=== PATIENT | male | born 1950 | race Caucasian/White ===

== ENCOUNTER → 2021-03-17 12:55 | Outpatient (CLI) | payer OTHER, SELFPAY ==
--- NOTE | 2021-03-17 13:05 | MRI_ITS ---
STUDY: MRI BRAIN WITH AND WITHOUT CONTRAST REASON FOR EXAM: Male, 71 years old. ASYMMETRIC HEARING LOSS, left TECHNIQUE: Standardized multiplanar fat and water weighted pulse sequences were obtained. IV dotarem 20ml was administered for the contrast portion of the examination. COMPARISON: None. FINDINGS: Normal size of the ventricles and extra-axial spaces for the patient''s age. There are a limited number of small white matter hyperintensities, distributed throughout the deep white matter tracts of the cerebral hemispheres, consistent with mild chronic white matter ischemic changes. Normal bilateral basal ganglia. Normal thalami. There is no extra-axial fluid accumulation. Normal flow voids within the major intracranial circulation suggesting patency by spin echo criteria. Normal venous enhancement. There is no enhancing intra-axial or extra-axial abnormality. Normal sella turcica, pituitary gland, infundibular stalk, optic chiasm and hypothalamus. Normal tectal plate and pineal gland. Normal midbrain, kj and medulla. Normal cerebellum. Normal basal cisterns. Normal bilateral temporal bones. Normal bilateral internal auditory canals. No demonstrated orbital abnormality, within the constraints of a routine brain study. Normal visualized paranasal sinuses. Normal calvarium and skull base. Normal visualized soft tissue structures. Normal visualized upper cervical spine. MRI/Brain W/WO Contrast IMPRESSION: Involutional changes of the brain, as described above. Electronically Signed: Hank Saldana MD at 3:52 EDT Tel , Service support ,
[2021-03-17 13:16] LABS: CREATININE FINGERSTICK 0.6 mg/dL (0.70-1.30); EGFR FINGERSTICK > 60.0000 mL/min (>60)
== END ==
PROVIDERS: PCP Family Medicine; Referring Provider Otolaryngology; Visit Provider Otolaryngology
DX: H90.72 Mixed conductive and sensorineural hearing loss, unilateral, left ear, with unrestricted hearing on the contralateral side (principal)
CPT/HCPCS: 70553; A9575

== ENCOUNTER 2021-07-19 09:01 | Emergency (ER) | payer OTHER, SELFPAY ==
[2021-07-19 09:01] VITALS: BP 177/69; PULSE 71; RESP 18; TEMP 36.6; O2SAT 98; BMI 36.5
--- NOTE | 2021-07-19 09:38 | ED.VIS.GI ---
HPI HPI - GI History of Present Illness Chief Complaint: Nausea/Vomiting Narrative Narrative: 71-year-old male presenting with epigastric pain and nausea and vomiting. This started about 2 or 230 this morning. He vomited several times. He is now having dark vomit. There is no blayne blood in this. Patient states he was otherwise well yesterday and drank 6-7 beers while watching football. He states he ate a hamburger and some sausage and soup yesterday. Nobody else was sick from eating yesterday. He has not had a fever. He denies constipation or diarrhea. [facility] Medical History (Updated 07/19/21 @ 10:10 by Pascale Lim) Hypertension Home Medications Cholecalciferol (Vitamin D3) [Vitamin D3] 4,000 unit PO DAILY 12/10/15 [History Last Taken Unknown] L-Theanine 100 mg PO/SL DAILY 12/10/15 [History Last Taken Unknown] ezetimibe 10 mg PO DAILY 12/10/15 [History Last Taken Unknown] folic acid 1 mg PO DAILY@0800 12/10/15 [History Last Taken Unknown] multivitamin [Daily Multiple] 1 ea PO DAILY 12/10/15 [History Last Taken 12/16/15] atenolol 100 mg PO DAILY 07/19/21 [History Last Taken Unknown] coQ10 (ubiquinol) 200 mg PO DAILY 07/19/21 [History Last Taken Unknown] famotidine [Pepcid] 20 mg PO DAILY PRN #14 tab 07/19/21 [Rx Last Taken Unknown] losartan 100 mg PO DAILY 07/19/21 [History Last Taken Unknown] magnesium 100 mg PO TID 07/19/21 [History Last Taken Unknown] ondansetron HCl [Zofran] 4 mg PO Q8H PRN #14 tab 07/19/21 [Rx Last Taken Unknown] sertraline 50 mg PO DAILY 07/19/21 [History Last Taken Unknown] spironolactone 50 mg PO DAILY 07/19/21 [History Last Taken Unknown] tadalafil 10 mg PO DAILY 07/19/21 [History Last Taken Unknown] Allergy/AdvReac Type Severity Reaction Status Date / Time atorvastatin calcium Allergy Other Verified 07/19/21 09:03 [From Lipitor] fenofibrate nanocrystallized Allergy Other Verified 07/19/21 09:03 [From Tricor] fenofibrate,micronized Allergy Other Verified 07/19/21 09:03 [From Tricor] hydrochlorothiazide Allergy Other Verified 07/19/21 09:03 latex Allergy Hives Verified 07/19/21 09:03 Surgical History (Updated 07/19/21 @ 10:10 by Pascale Lim) History of cholecystectomy History of parathyroidectomy History of prostatectomy History of tonsillectomy Social History Smoking Status: Former smoker ROS ROS ED Review of Systems ROS Unobtainable: Denies due to encephalopathy Constitutional Constitutional ED: Denies chills or fever(s) ENT ENT ED: Denies rhinorrhea or sore throat Cardiovascular Cardiovascular: Denies chest pain or palpitations Respiratory/Chest Respiratory/Chest: Denies cough or dyspnea Gastrointestinal Gastrointestinal: Reports abdominal pain, nausea and vomiting; Denies constipation or diarrhea Genitourinary Genitourinary ED: Denies dysuria or hematuria Musculoskeletal Musculoskeletal: Denies arthralgias, back pain or myalgias Integumentary Denies rash Neurologic Neurologic: Denies headache(s) or paresthesias EXAM Physical Exam Const Vital Signs: 07/19/21 09:01 07/19/21 10:08 Temperature 98 F 98.0 F Temperature Source Temporal Temporal Pulse Rate 71 77 Respiratory Rate 18 18 Blood Pressure 177/69 H 177/61 H Blood Pressure Mean 105 99 Pulse Ox 98 98 Oxygen Delivery Method Room Air Room Air Positive well nourished General Appearance ED: NAD; Negative for pallor HEENT Reports moist mucous membranes normocephalic and atraumatic Eyes PERRL and EOMs intact bilaterally General Eye ED: Negative for scleral icterus Resp normal respiratory effort and clear to auscultation bilaterally Cardio regular rate and regular rhythm GI non-distended Palpation: soft and tender epigastric Neuro Sensorium / Orientation: alert, oriented to person, oriented to place and oriented to time Psych mental status grossly normal and thought process normal Skin General Skin Exam: Negative for jaundice or pallor MDM MDM MDM Narrative Medical decision making narrative: Patient presenting with nausea, vomiting, epigastric pain. He admits to drinking several beers yesterday and did eat sausage and hamburger. In the ED he was given Zofran for nausea and morphine for pain. He was also given IV fluids. On reevaluation he is feeling much better. His CBC does show a leukocytosis of 14.8 however this is likely due to his episodes of vomiting. He is slightly dehydrated but again he was given IV fluids. His LFTs and lipase are normal. EtOH is negative. Patient will be provided a prescription for Pepcid and Zofran for home. He is counseled on foods to avoid and to hydrate slowly throughout the day. Patient's blood sugar slightly elevated at 215 and he tells me that he was just diagnosed as prediabetic and was supposed to be doing a diabetic diet. There is no anion gap and I do not believe this will change his disposition but he will need to follow-up with his primary care doctor for this. Impression: 1. Nausea/vomiting 2. Epigastric pain 3. Hyperglycemia 4. Dehydration Lab Data Labs: Laboratory Results - last 24 hr 07/19/21 07/19/21 07/19/21 09:55 09:55 09:55 WBC 14.8 H RBC 5.18 Hgb 14.3 Hct 42.7 MCV 82.4 MCH 27.6 MCHC 33.5 RDW Std Deviation 40.7 RDW Coeff of Mike 13.6 Plt Count 222 MPV 10.2 Immature Gran % (Auto) 0.400 Neut % (Auto) 89.7 H Lymph % (Auto) 5.0 L Garza % (Auto) 4.7 Eos % (Auto) 0.1 Baso % (Auto) 0.1 Absolute Neuts (auto) 13.3 H Absolute Lymphs (auto) 0.74 L Nucleated RBC % 0 Sodium 136 Potassium 3.9 Chloride 97 L Carbon Dioxide 33.0 H Anion Gap 6 BUN 29 H Creatinine 1.35 H Estim Creat Clear Calc 49.26 Est GFR (MDRD) Af Amer 67 Est GFR (MDRD) Non-Af 56 L BUN/Creatinine Ratio 21.5 H Glucose 215 H Calcium 9.6 Total Bilirubin 0.90 AST 24 ALT 36 Alkaline Phosphatase 80 Total Protein 7.6 Albumin 4.0 Globulin 3.6 Albumin/Globulin Ratio 1.1 Lipase 121 Ethyl Alcohol < 3.0 Discharge Plan Triage Chief Complaint: Nausea/Vomiting ED Provider: Chinmay Del Cid Dx/Rx/DC Orders Instructions: ED Vomiting (Adult) Prescriptions: New famotidine [Pepcid] 20 mg tablet 20 mg PO DAILY PRN (Reason: acid reflux) Qty: 14 RF: 0 ondansetron HCl [Zofran] 4 mg tablet 4 mg PO Q8H PRN (Reason: nausea and vomiting) Qty: 14 RF: 0 No Action multivitamin [Daily Multiple] 1 EACH tablet 1 ea PO DAILY RF: 0 folic acid 1 MG tablet 1 mg PO DAILY@0800 RF: 0 ezetimibe 10 MG tablet 10 mg PO DAILY RF: 0 Cholecalciferol (Vitamin D3) [Vitamin D3] 5,000 UNIT capsule 4,000 unit PO DAILY RF: 0 L-Theanine 100 mg PO/SL DAILY RF: 0 atenolol 100 mg tablet 100 mg PO DAILY RF: 0 magnesium 100 mg Tablet 100 mg PO TID RF: 0 losartan 100 mg tablet 100 mg PO DAILY RF: 0 sertraline 50 mg tablet 50 mg PO DAILY RF: 0 spironolactone 50 mg tablet 50 mg PO DAILY RF: 0 tadalafil 10 mg tablet 10 mg PO DAILY RF: 0 coQ10 (ubiquinol) 200 mg Capsule 200 mg PO DAILY RF: 0 Primary Care Provider: Justin Ybarra Referrals: Justin Ybarra MD [Primary Care Provider] - Disposition Disposition: Home, Self Care
[2021-07-19] MEDS: 0.9% Normal Saline 1,000 ML 1000 ML IV (09:55)
[2021-07-19] MEDS: Ondansetron 4 MG/2 ML Vial IV (09:55)
[2021-07-19] MEDS: Morphine 4 MG/ML Syringe IV (09:55)
[2021-07-19 10:05] LABS: Absolute Lymphocyte Count 0.74 X10^3/uL (0.83-4.51); Absolute Neutrophil Count 13.3 X10^3/uL (2.0-7.7); Basophil# 0.02 X10^3/uL; Basophil% 0.1 % (0-1); Eosinophil# 0.01 X10^3/uL; Eosinophils% 0.1 % (0-5); Hematocrit 42.7 % (40-54); Hemoglobin 14.3 g/dL (13.0-16.5); Lymphocyte # 0.74 X10^3/ul (0.83-4.51); Mean Corp Hgb Conc 33.5 g/dL (32-36); Mean Corpuscular Hgb 27.6 pg (27.0-32.0); Mean Corpuscular Volume 82.4 fL (80-94); Mean Platelet Vol. 10.2 fl (6.2-12.0); Monocyte% 4.7 % (0-10); NRBC Flagged by Analyzer 0 % (0-5); Neutrophil # 13.26 X10^3/uL (2.7-7.7); Neutrophil % 89.7 % (47-70); Platelet Count 222 K/mm3 (150-450); RBC Distribution Width CV 13.6 % (11.6-14.6); RBC Distribution Width SD 40.7 fl (35.1-43.9); Red Blood Count 5.18 M/mm3 (4.6-6.2); White Blood Count 14.8 K/mm3 (4.4-11.0)
[2021-07-19 10:08] VITALS: BP 177/61; PULSE 77; RESP 18; TEMP 36.7; O2SAT 98
[2021-07-19 10:19] LABS: Alcohol, Blood (Medical)-Serum < 3.0 mg/dL
[2021-07-19 10:22] LABS: ALB/GLOB Ratio 1.1 RATIO (0.9-2.4); AST(SGOT) 24 U/L (15-37); Alanine Aminotransfer ALT/SGPT 36 U/L (16-61); Alkaline Phosphatase 80 U/L (45-117); Anion Gap 6 (5-15); BUN 29 mg/dL (7-18); BUN/Creat Ratio 21.5 RATIO (10-20); Calcium,Total 9.6 mg/dL (8.5-10.1); Chloride 97 mmol/L (98-107); Creatinine, Serum 1.35 mg/dL (0.70-1.30); EST Glomerular Filtration Rate 56 mL/min (>60); Est Glom Filt Rate - Afr Amer 67 mL/min (>60); Estimated Creatinine Clearance 49.26 ml/min; Globulin 3.6 g/dL (2.2-4.2); Glucose 215 mg/dL (74-106); Lipase 121 U/L (73-393); Potassium 3.9 mmol/L (3.5-5.1); Protein, Total 7.6 g/dL (6.4-8.2); Sodium Level 136 mmol/L (136-145)
[2021-07-19 11:14] VITALS: PULSE 64; RESP 17; O2SAT 97
== END 2021-07-19 11:14 | disposition home or self-care (01) ==
PROVIDERS: Emergency Provider Student in an Organized Health Care Education/Training Program; PCP Family Medicine
DX: R11.2 Nausea with vomiting, unspecified (principal); R10.13 Epigastric pain; R73.9 Hyperglycemia, unspecified; E86.0 Dehydration; I10 Essential (primary) hypertension; Z87.891 Personal history of nicotine dependence
CPT/HCPCS: 80053; 82077; 83690; 85025; 96361; 96374; 96375; 99283; J7030; A4216; J2405

== ENCOUNTER 2021-07-20 04:46 | Inpatient (IN) | payer BC, MEDICARE, OTHER, SELFPAY ==
[2021-07-20] VITALS (47 sets, daily range): BP systolic 91–187; BP diastolic 48–88; PULSE 91–142; RESP 14–41; TEMP 36.5–39.3; O2SAT 85–99; BMI 36.1; BMI 37.0; BMI 36.6
--- NOTE | 2021-07-20 04:49 | EKG12_ITS ---
Test Reason : VOMITING Blood Pressure : / mmHG Vent. Rate : 109 BPM Atrial Rate : 109 BPM P-R Int : 196 ms QRS Dur : 094 ms QT Int : 290 ms P-R-T Axes : 072 021 -31 degrees QTc Int : 390 ms Sinus tachycardia Nonspecific ST and T wave abnormality Abnormal ECG Confirmed by YESSY WEBER, LYNN ([id number]), editor at large YARIEL HARDEN ([id number]) on 07/21/2021 9:24:46 AM Referred By: DEVANTE Confirmed By:LYNN KRISHNAMURTHY MD
--- NOTE | 2021-07-20 04:50 | CT_ITS ---
We are attempting to reach an attending provider to discuss findings. An addendum with communication details will be sent when the communication is complete. HISTORY: Abdominal pain, bloating, nausea and vomiting. EXAMINATION: CT Abdomen And Pelvis W/O Contrast Injection TECHNIQUE: Helically acquired images were obtained of the abdomen and pelvis without oral or IV contrast. A radiation dose optimization technique was used for this scan. IV Contrast dosage and agent: None. Oral contrast: None. COMPARISON: None FINDINGS: LOWER CHEST: Dilated fluid-filled esophagus. Multiple bilateral patchy groundglass alveolar opacities. Superimposed bibasilar linear scarring versus atelectasis. Normal size heart with coronary arterial calcifications and/or stents. LIVER: Homogeneous. No concerning lesion. GALLBLADDER AND BILIARY TREE: Status post cholecystectomy. No significant biliary ductal dilation. KIDNEYS AND URETERS: Kidneys are symmetric size with no discrete mass, stones or hydronephrosis. ADRENAL GLANDS: Non-enlarged. SPLEEN: Spleen normal size with small granulomatous calcification. PANCREAS: No discrete mass or peripancreatic inflammation. BOWEL: Markedly distended gastric lumen. Dilated and duodenal and proximal jejunum with air-fluid levels, measuring up to 4 cm diameter. There is jejunal pneumatosis involving dilated segment within mid abdomen, just proximal to narrowing and tapering transition point (axial images 90-105). Remainder of small bowel is decompressed. Large bowel partially decompressed. Normal appendix within right lower quadrant. Noninflamed sigmoid diverticula. LYMPH NODES: No enlarged mesenteric or retroperitoneal lymph nodes. PERITONEUM: There is mesenteric edema adjacent to dilated loops of small bowel within mid abdomen. No mesenteric venous gas or free peritoneal air demonstrated. No abscess or significant free fluid. VESSELS: Scattered atherosclerotic calcifications with no abdominal aortic aneurysm. URINARY BLADDER: Empty urinary bladder. REPRODUCTIVE ORGANS: Previous prostatectomy. ABDOMINAL WALL: Bilateral inguinal hernia repair. BONES: Chronic pubic fracture. Skeletal degenerative changes. CT/Abdomen/Pelvis without Cont IMPRESSION: 1. Mid abdominal high-grade small bowel obstruction with pneumatosis involving jejunum proximal to the transition, concerning for bowel infarction. No mesenteric or portal venous gas demonstrated at this time. No evidence of bowel obstruction. Recommend surgical consultation. 2. Bilateral groundglass pulmonary infiltrate suggesting atypical or viral pneumonia. 3. Dilated and fluid-filled stomach and esophagus secondary to bowel obstruction. 4. Other nonurgent findings within body of report. Individualized dose optimization techniques were used for this CT. at 0554 Reported and signed by: Panchito Cason MD Electronically Signed: Panchito Cason MD at 5:52 EST Tel , Service support ,
[2021-07-20] MEDS: Ondansetron 4 MG/2 ML Vial IV (05:00)
[2021-07-20] MEDS: 0.9% Normal Saline 1,000 ML 1000 ML IV (05:00)
[2021-07-20 05:09] LABS: Absolute Lymphocyte Count 0.99 X10^3/uL (0.83-4.51); Absolute Neutrophil Count 20.3 X10^3/uL (2.0-7.7); Basophil# 0.03 X10^3/uL; Basophil% 0.1 % (0-1); Hematocrit 42.4 % (40-54); Hemoglobin 13.6 g/dL (13.0-16.5); Lymphocyte # 0.99 X10^3/ul (0.83-4.51); Lymphocyte % 4.3 % (19-41); Mean Corp Hgb Conc 32.1 g/dL (32-36); Mean Corpuscular Hgb 27.3 pg (27.0-32.0); Mean Corpuscular Volume 85.1 fL (80-94); Mean Platelet Vol. 10.5 fl (6.2-12.0); Monocyte# 1.72 X10^3/uL; Monocyte% 7.4 % (0-10); NRBC Flagged by Analyzer 0 % (0-5); Neutrophil # 20.29 X10^3/uL (2.7-7.7); Neutrophil % 87.1 % (47-70); POSITIVE DIFFERENTIAL YES; Platelet Count 303 K/mm3 (150-450); RBC Distribution Width CV 14.1 % (11.6-14.6); RBC Distribution Width SD 43.7 fl (35.1-43.9); Red Blood Count 4.98 M/mm3 (4.6-6.2); White Blood Count 23.3 K/mm3 (4.4-11.0)
[2021-07-20] MEDS: Famotidine 200 MG/20 ML MDV 20 MG in 0.9% Normal Saline (Pres. free 8 ML 300 MG IV (05:09)
[2021-07-20] MEDS: morphine 8 MG/ML Syringe 6 MG IV (05:12)
[2021-07-20 05:13] LABS: Differential Indicated SCAN CRITERIA MET
--- NOTE | 2021-07-20 05:29 | RAD_ITS ---
HISTORY: NG TUBE PLACEMENT EXAMINATION/TECHNIQUE: XR Abdomen 1 View: Upright view upright abdomen COMPARISON: CT abdomen and pelvis from one hour prior FINDINGS: Enteric tube tip within right upper quadrant at level of distal distended gastric lumen. Adjacent cholecystectomy clips. Partially imaged mildly dilated loops of small bowel within mid abdomen. Mild bibasilar opacities. Mild skeletal degenerative changes. RAD/Abdomen Single View (Portable) IMPRESSION: Distended gastric lumen with enteric tube projecting into the distal stomach. Dilated loops of small bowel. Bowel obstruction demonstrated on recent CT. Bibasilar atelectasis versus infiltrate. at 0719 Reported and signed by: Panchito Cason MD Electronically Signed: Panchito Cason MD at 7:17 EST Tel , Service support ,
--- NOTE | 2021-07-20 05:30 | EDS_ITS ---
HPI HPI - GI History of Present Illness Chief Complaint: Abd Pain Informant: patient Narrative Narrative: Patient is a 71-year-old male presenting with worsening abdominal distention, pain and vomiting. Patient was seen in the ER yesterday morning. He had similar symptoms but not as severe. He was treated with IV fluids and Zofran. He states he is continued to vomit since going home. He is now vomiting up black/dark brown material. His abdomen is more distended. He is not had any bowel movements. He denies any chest pain or difficulty breathing. Denies a history of small bowel obstruction or similar episode. Has had a chol ecystectomy in the past. No other complaints at this time. [facility] Medical History Hypertension Home Medications Cholecalciferol (Vitamin D3) [Vitamin D3] 4,000 unit PO DAILY 12/10/15 [History Last Taken Unknown] L-Theanine 100 mg PO/SL DAILY 12/10/15 [History Last Taken Unknown] ezetimibe 10 mg PO DAILY 12/10/15 [History Last Taken Unknown] folic acid 1 mg PO DAILY@0800 12/10/15 [History Last Taken Unknown] multivitamin [Daily Multiple] 1 ea PO DAILY 12/10/15 [History Last Taken 12/16/15] atenolol 100 mg PO DAILY 07/19/21 [History Last Taken Unknown] coQ10 (ubiquinol) 200 mg PO DAILY 07/19/21 [History Last Taken Unknown] famotidine [Pepcid] 20 mg PO DAILY PRN #14 tab 07/19/21 [Rx Last Taken Unknown] losartan 100 mg PO DAILY 07/19/21 [History Last Taken Unknown] magnesium 100 mg PO TID 07/19/21 [History Last Taken Unknown] ondansetron HCl [Zofran] 4 mg PO Q8H PRN #14 tab 07/19/21 [Rx Last Taken Unknown] sertraline 50 mg PO DAILY 07/19/21 [History Last Taken Unknown] spironolactone 50 mg PO DAILY 07/19/21 [History Last Taken Unknown] tadalafil 10 mg PO DAILY 07/19/21 [History Last Taken Unknown] Allergy/AdvReac Type Severity Reaction Status Date / Time atorvastatin calcium Allergy Other Verified 07/19/21 09:03 [From Lipitor] fenofibrate nanocrystallized Allergy Other Verified 07/19/21 09:03 [From Tricor] fenofibrate,micronized Allergy Other Verified 07/19/21 09:03 [From Tricor] hydrochlorothiazide Allergy Other Verified 07/19/21 09:03 latex Allergy Hives Verified 07/19/21 09:03 Surgical History History of cholecystectomy History of parathyroidectomy History of prostatectomy History of tonsillectomy Social History Smoking Status: Former smoker ROS ROS ED Constitutional Constitutional ED: Denies chills or fever(s) ENT ENT ED: Denies sore throat Cardiovascular Cardiovascular: Denies chest pain Respiratory/Chest Respiratory/Chest: Denies dyspnea Gastrointestinal Gastrointestinal: Reports abdominal pain, nausea and vomiting Genitourinary Genitourinary ED: Denies dysuria or hematuria Musculoskeletal Musculoskeletal: Denies myalgias Integumentary Denies rash Neurologic Neurologic: Reports weakness; Denies headache(s) Psychiatric Psychiatric: Denies depression EXAM Physical Exam Const Vital Signs: 07/20/21 04:49 07/20/21 06:28 07/20/21 06:36 Temperature 97.7 F L Temperature Source Temporal Pulse Rate 108 H 125 H Respiratory Rate 16 Blood Pressure 181/86 H 136/62 H 133/63 H Blood Pressure Mean 117 86 86 Blood Pressure Source Blood Pressure Position Blood Pressure Location Pulse Ox 98 Oxygen Delivery Method Room Air Nasal Cannula Oxygen Flow Rate (L/min) 3 07/20/21 06:51 07/20/21 06:53 07/20/21 06:55 Temperature 99.0 F 99.0 F 99.0 F Temperature Source Temporal Temporal Temporal Pulse Rate 116 H 117 H 117 H Respiratory Rate 41 H 40 H 38 H Blood Pressure 140/80 H 140/80 H 140/80 H Blood Pressure Mean 100 100 100 Blood Pressure Source Monitor Blood Pressure Position Supine Blood Pressure Location Right Arm Pulse Ox 86 85 85 Oxygen Delivery Method Non-Rebreather Non-Rebreather Non-Rebreather Oxygen Flow Rate (L/min) 15 15 15 07/20/21 07:03 Temperature Temperature Source Pulse Rate 108 H Respiratory Rate 37 H Blood Pressure 161/88 H Blood Pressure Mean 112 Blood Pressure Source Blood Pressure Position Blood Pressure Location Pulse Ox 87 Oxygen Delivery Method Non-Rebreather Oxygen Flow Rate (L/min) 15 Positive well nourished and well developed General Appearance ED: well developed HEENT Reports moist mucous membranes HEENT Narrative: Coffee ground appearing emesis stained around his mouth normocephalic Eyes PERRL and EOMs intact bilaterally Neck supple and no JVD Resp normal respiratory effort and clear to auscultation bilaterally Cardio regular rhythm and no murmurs GI Inspection: abdominal distention Auscultation: hypoactive bowel sounds Palpation: rigid; Negative for guarding Extremity full ROM Extremity Narrative: 2+ bilateral DP pulses General Extremety ED: Negative for edema or tenderness General Extremity: Negative for edema Neuro moves all extremities Sensorium / Orientation: alert Motor Exam: strength 5/5 throughout; Negative for general weakness Psych mental status grossly normal Skin Lesions: no lesions Rashes: no rashes MDM MDM Lab Data Lab results narrative: Patient evaluated for worsening abdominal pain, distention nausea and vomiting. Vomit is consistent with coffee-ground emesis. CT obtained which is concerning for small bowel obstruction. NG tube will be placed. Patient is worsening leukocytosis now 23.3. EKG shows strain pattern with sinus tachycardia. He has a significant lactic acidosis and findings consistent with acute ischemia with pneumatosis of the bowels. NG tube is placed and patient has over a liter immediately out of black fluid. After the NG tube is placed he does start to become hypoxic and was placed on a nonrebreather. I suspect he aspirated at some time. Patient is evaluated by surgery and will be taken emergently to the OR. Clinically he does feel much better after NG tube was placed. Labs: Laboratory Results - last 24 hr 07/20/21 07/20/21 07/20/21 04:59 04:59 04:59 WBC 23.3 H RBC 4.98 Hgb 13.6 Hct 42.4 MCV 85.1 MCH 27.3 MCHC 32.1 RDW Std Deviation 43.7 RDW Coeff of Mike 14.1 Plt Count 303 MPV 10.5 Immature Gran % (Auto) 1.100 H Neut % (Auto) 87.1 H Lymph % (Auto) 4.3 L [place] % (Auto) 7.4 Eos % (Auto) 0.0 Baso % (Auto) 0.1 Absolute Neuts (auto) 20.3 H Absolute Lymphs (auto) 0.99 Nucleated RBC % 0 Differential Comment SCANNED Diff Path Review May foll PT INR APTT Sodium 137 Potassium 2.9 L Chloride 92 L Carbon Dioxide 22.0 Anion Gap 23 H BUN 57 H Creatinine 2.81 H Estim Creat Clear Calc 23.67 Est GFR (MDRD) Af Amer 29 L Est GFR (MDRD) Non-Af 24 L BUN/Creatinine Ratio 20.3 H Glucose 299 H Lactic Acid 13.7 H* Calcium 8.9 Magnesium Total Bilirubin 0.60 AST 30 ALT 35 Alkaline Phosphatase 72 Total Creatine Kinase Troponin I High Sens 278 H* Total Protein 7.6 Albumin 3.7 Globulin 3.9 Albumin/Globulin Ratio 0.9 Lipase 59235 H Urine Color Urine Clarity Urine pH Ur Specific [place] Urine Protein Urine Glucose (UA) Urine Ketones Urine Occult Blood Urine Nitrite Urine Bilirubin Urine Urobilinogen Ur Leukocyte Esterase Urine RBC Urine WBC Ur Squamous Epith Cells Urine Bacteria Urine Mucus Blood Type Antibody Screen Crossmatch 07/20/21 07/20/21 07/20/21 04:59 04:59 06:05 WBC RBC Hgb Hct MCV MCH MCHC RDW Std Deviation RDW Coeff of Mike Plt Count MPV Immature Gran % (Auto) Neut % (Auto) Lymph % (Auto) [place] % (Auto) Eos % (Auto) Baso % (Auto) Absolute Neuts (auto) Absolute Lymphs (auto) Nucleated RBC % Differential Comment Diff Path Review PT 16.1 H INR 1.4 APTT 26.3 Sodium Potassium Chloride Carbon Dioxide Anion Gap BUN Creatinine Estim Creat Clear Calc Est GFR (MDRD) Af Amer Est GFR (MDRD) Non-Af BUN/Creatinine Ratio Glucose Lactic Acid Calcium Magnesium 2.4 Total Bilirubin AST ALT Alkaline Phosphatase Total Creatine Kinase 315 H Troponin I High Sens Total Protein Albumin Globulin Albumin/Globulin Ratio Lipase Urine Color Urine Clarity Urine pH Ur Specific [place] Urine Protein Urine Glucose (UA) Urine Ketones Urine Occult Blood Urine Nitrite Urine Bilirubin Urine Urobilinogen Ur Leukocyte Esterase Urine RBC Urine WBC Ur Squamous Epith Cells Urine Bacteria Urine Mucus Blood Type Antibody Screen Crossmatch 07/20/21 07/20/21 07/20/21 06:07 06:07 07:35 WBC RBC Hgb Hct MCV MCH MCHC RDW Std Deviation RDW Coeff of Mike Plt Count MPV Immature Gran % (Auto) Neut % (Auto) Lymph % (Auto) [place] % (Auto) Eos % (Auto) Baso % (Auto) Absolute Neuts (auto) Absolute Lymphs (auto) Nucleated RBC % Differential Comment Diff Path Review PT INR APTT Sodium Potassium Chloride Carbon Dioxide Anion Gap BUN Creatinine Estim Creat Clear Calc Est GFR (MDRD) Af Amer Est GFR (MDRD) Non-Af BUN/Creatinine Ratio Glucose Lactic Acid Calcium Magnesium Total Bilirubin AST ALT Alkaline Phosphatase Total Creatine Kinase Troponin I High Sens Total Protein Albumin Globulin Albumin/Globulin Ratio Lipase Urine Color Yellow Urine Clarity Clear Urine pH 5.0 Ur Specific [place] 1.020 Urine Protein 30 H Urine Glucose (UA) Normal Urine Ketones Negative Urine Occult Blood 150 H Urine Nitrite Negative Urine Bilirubin Negative Urine Urobilinogen Normal Ur Leukocyte Esterase Negative Urine RBC 0 SEEN Urine WBC 0 SEEN Ur Squamous Epith Cells 0-5 SEEN Urine Bacteria 0 SEEN Urine Mucus 0 SEEN Blood Type B POSITIVE Antibody Screen NEGATIVE Crossmatch See Detail Radiography Diagnostic Testing: Clinical Impression(s) from Imaging Studies Abdomen/Pelvis CT 07/20/21 04:50 IMPRESSION: 1. Mid abdominal high-grade small bowel obstruction with pneumatosis involving jejunum proximal to the transition, concerning for bowel infarction. No mesenteric or portal venous gas demonstrated at this time. No evidence of bowel obstruction. Recommend surgical consultation. 2. Bilateral groundglass pulmonary infiltrate suggesting atypical or viral pneumonia. 3. Dilated and fluid-filled stomach and esophagus secondary to bowel obstruction. 4. Other nonurgent findings within body of report. Individualized dose optimization techniques were used for this CT. at 0554 Reported and signed by: Panchito Cason MD Electronically Signed: Panchito Cason MD at 5:52 EST Tel , Service support , ADDENDUM: 07/20/21 0606 IMPRESSION: 1. Mid abdominal high-grade small bowel obstruction with pneumatosis involving jejunum proximal to the transition, concerning for bowel infarction. No mesenteric or portal venous gas demonstrated at this time. No evidence of bowel obstruction. Recommend surgical consultation. 2. Bilateral groundglass pulmonary infiltrate suggesting atypical or viral pneumonia. 3. Dilated and fluid-filled stomach and esophagus secondary to bowel obstruction. 4. Other nonurgent findings within body of report. Individualized dose optimization techniques were used for this CT. at 0554 Reported and signed by: Panchito Cason MD N.B. : The above Results were Read Back by Panchito Cason MD to Dr. Cecilio MD, and understanding confirmed on 07/20/2021 05:59:09 (ET). Electronically Signed: Panchito Cason MD at 5:52 EST Tel , Service support , Chest X-Ray 07/20/21 07:58 IMPRESSION: 1. Nasogastric tube with the tip below the diaphragm. 2. Right internal jugular deep venous line with tip of the catheter overlying the superior vena cava no pneumothorax. 3. Poor inspiration with bibasilar atelectasis. Electronically Signed: Brandyn Lou MD at 8:28 EST Tel , Service support , Rhythm Strip Rhythm Strip: Sinus Tach Rate: 109 Ectopy: None EKG Initial EKG: Attestation: I personally reviewed and interpreted this EKG as follows: Interpretation: Sinus Tachycardia Comments: Sinus tachycardia at a rate of 109 Normal axis Normal intervals ST depressions in the inferior leads No signs consistent with ACS Critical Care Time Critical Care Time: Yes Critical care time (excluding procedures): 30-74 minutes (50), Discussing w/Patient &/or Family/High School Tutor, Discussing w/Consultants, Arranging Admission or Transfer and Performing Direct Patient Care at Bedside Discharge Plan Dx/Rx/DC Orders Clinical Impression: SBO (small bowel obstruction), Pneumatosis of intestines, Acidosis, lactic Disposition Disposition: Acute Care Hospital [facility] Discharge Date/Time: 07/20/21 07:25
[2021-07-20 05:39] LABS: Differential Comment SCANNED
[2021-07-20 05:43] LABS: ALB/GLOB Ratio 0.9 RATIO (0.9-2.4); AST(SGOT) 30 U/L (15-37); Alanine Aminotransfer ALT/SGPT 35 U/L (16-61); Albumin, Serum 3.7 g/dL (3.2-5.0); Alkaline Phosphatase 72 U/L (45-117); Anion Gap 23 (5-15); BUN 57 mg/dL (7-18); BUN/Creat Ratio 20.3 RATIO (10-20); Calcium,Total 8.9 mg/dL (8.5-10.1); Chloride 92 mmol/L (98-107); Creatinine, Serum 2.81 mg/dL (0.70-1.30); EST Glomerular Filtration Rate 24 mL/min (>60); Est Glom Filt Rate - Afr Amer 29 mL/min (>60); Estimated Creatinine Clearance 23.67 ml/min; Globulin 3.9 g/dL (2.2-4.2); Glucose 299 mg/dL (74-106); Lactic Acid 13.7 mmol/L (0.4-1.9); Lipase 11944 U/L (73-393); Potassium 2.9 mmol/L (3.5-5.1); Protein, Total 7.6 g/dL (6.4-8.2); Sodium Level 137 mmol/L (136-145); Troponin-I HS 278 pg/mL (3.0-78.0)
[2021-07-20] MEDS: Oxymetazoline 0.05% 1 SPRAY SPRAY.BTL 2 SPRAY NASAL (05:52)
[2021-07-20] MEDS: Lidocaine 4% 5 ML Ampul 2 ML INHALATION (05:53)
[2021-07-20 06:23] LABS: CPK Total, Creatine Kinase 315 U/L (39-308)
[2021-07-20] MEDS: Potassium Chloride 10mEq/100mL 10 MEQ/100 ML IV.SOLN. 100 MEQ IV BOLUS ×2 (06:38→07:38)
[2021-07-20] MEDS: 0.9% Normal Saline 1,000 ML 999 ML IV ×2 (06:38→07:01)
[2021-07-20 06:40] LABS: International Normalized Ratio 1.4; Prothrombin Time (Protime)PT. 16.1 SECONDS (11.7-14.9)
[2021-07-20 06:41] LABS: Partial Thromboplast Time 26.3 Seconds (24.1-36.2)
--- NOTE | 2021-07-20 06:56 | PCM.HP.STD ---
HPI - General HPI Narrative BARRERA HENDRICKS, is a 71 M who presents to the ER due to abdominal pain and nausea and vomiting. Patient states this all started about midday on Monday. Patient has been vomiting ever since has not really eaten since Monday. Patient did go to the ER yesterday and got some pain meds and reflux medication which he thought it helped a little bit however once he laid down it continued. Patient presented to the ER this morning the white blood count 23, will lactic of 13, CT abdomen pelvis shows dilated fluid-filled stomach, small bowel likely high-grade obstruction, questionable pneumatosis of the small bowel. Patient is currently satting 85% on nonrebreather - since NG was placed?and NG has put out about 2 L [facility] Medical History Hypertension Home Medications Cholecalciferol (Vitamin D3) [Vitamin D3] 4,000 unit PO DAILY 12/10/15 [History Last Taken Unknown] L-Theanine 100 mg PO/SL DAILY 12/10/15 [History Last Taken Unknown] ezetimibe 10 mg PO DAILY 12/10/15 [History Last Taken Unknown] folic acid 1 mg PO DAILY@0800 12/10/15 [History Last Taken Unknown] multivitamin [Daily Multiple] 1 ea PO DAILY 12/10/15 [History Last Taken 12/16/15] atenolol 100 mg PO DAILY 07/19/21 [History Last Taken Unknown] coQ10 (ubiquinol) 200 mg PO DAILY 07/19/21 [History Last Taken Unknown] famotidine [Pepcid] 20 mg PO DAILY PRN #14 tab 07/19/21 [Rx Last Taken Unknown] losartan 100 mg PO DAILY 07/19/21 [History Last Taken Unknown] magnesium 100 mg PO TID 07/19/21 [History Last Taken Unknown] ondansetron HCl [Zofran] 4 mg PO Q8H PRN #14 tab 07/19/21 [Rx Last Taken Unknown] sertraline 50 mg PO DAILY 07/19/21 [History Last Taken Unknown] spironolactone 50 mg PO DAILY 07/19/21 [History Last Taken Unknown] tadalafil 10 mg PO DAILY 07/19/21 [History Last Taken Unknown] Allergy/AdvReac Type Severity Reaction Status Date / Time atorvastatin calcium Allergy Other Verified 07/19/21 09:03 [From Lipitor] fenofibrate nanocrystallized Allergy Other Verified 07/19/21 09:03 [From Tricor] fenofibrate,micronized Allergy Other Verified 07/19/21 09:03 [From Tricor] hydrochlorothiazide Allergy Other Verified 07/19/21 09:03 latex Allergy Hives Verified 07/19/21 09:03 Surgical History History of cholecystectomy History of parathyroidectomy History of prostatectomy History of tonsillectomy Social History Smoking Status: Former smoker Vital Signs Vital Signs Vital Signs: 07/20/21 04:49 07/20/21 06:28 07/20/21 06:36 Temperature 97.7 F L Temperature Source Temporal Pulse Rate 108 H 125 H Respiratory Rate 16 Blood Pressure 181/86 H 136/62 H 133/63 H Blood Pressure Mean 117 86 86 Pulse Ox 98 Oxygen Delivery Method Room Air Nasal Cannula Oxygen Flow Rate (L/min) 3 07/20/21 06:51 07/20/21 06:53 Temperature 99.0 F 99.0 F Temperature Source Temporal Temporal Pulse Rate 116 H 117 H Respiratory Rate 41 H 40 H Blood Pressure 140/80 H 140/80 H Blood Pressure Mean 100 100 Pulse Ox 86 85 Oxygen Delivery Method Non-Rebreather Non-Rebreather Oxygen Flow Rate (L/min) 15 15 Weight Weight: 243 lb 13.3 oz Body Mass Index (BMI) 37.0 Physical Exam Const alert, oriented x3 and no apparent distress HEENT normocephalic and head/scalp atraumatic Resp normal respiratory effort Cardio regular rate GI soft to palpation Inspection: abdominal distention Palpation: tender other (Minimal only with deep palpation); Negative for guarding Extremity no clubbing, cyanosis or edema Neuro CN's II-XII intact bilaterally Psych mental status grossly normal Results Lab / Micro Data Result Diagrams: 07/20/21 04:59 07/20/21 04:59 Labs: Laboratory Results - last 24 hr 07/20/21 04:59: WBC 23.3 H, RBC 4.98, Hgb 13.6, Hct 42.4, MCV 85.1, MCH 27.3, MCHC 32.1, RDW Std Deviation 43.7, RDW Coeff of Mike 14.1, Plt Count 303, MPV 10.5, Immature Gran % (Auto) 1.100 H, Neut % (Auto) 87.1 H, Lymph % (Auto) 4.3 L, [place] % (Auto) 7.4, Eos % (Auto) 0.0, Baso % (Auto) 0.1, Absolute Neuts (auto) 20.3 H, Absolute Lymphs (auto) 0.99, Nucleated RBC % 0, Differential Comment SCANNED, Diff Path Review January foll 07/20/21 04:59: Sodium 137, Potassium 2.9 L, Chloride 92 L, Carbon Dioxide 22.0, Anion Gap 23 H, BUN 57 H, Creatinine 2.81 H, Estim Creat Clear Calc 23.67, Est GFR (MDRD) Af Amer 29 L, Est GFR (MDRD) Non-Af 24 L, BUN/Creatinine Ratio 20.3 H, Glucose 299 H, Calcium 8.9, Total Bilirubin 0.60, AST 30, ALT 35, Alkaline Phosphatase 72, Troponin I High Sens 278 H*, Total Protein 7.6, Albumin 3.7, Globulin 3.9, Albumin/Globulin Ratio 0.9, Lipase 12893 H 07/20/21 04:59: Lactic Acid 13.7 H* 07/20/21 04:59: Total Creatine Kinase 315 H 07/20/21 06:05: PT 16.1 H, INR 1.4, APTT 26.3 Micro: Microbiology 07/20/21 06:09 Interface Orders SARS-CoV-2 Antigen (Rapid) - Final 07/20/21 05:21 Stool Stool Occult Blood (PEDRO) - Final Occult Blood Positive Rhythm Strip Rhythm Strip: Sinus Tach Rate: 109 Ectopy: None Radiology Impression Abdomen/Pelvis CT 07/20/21 04:50 IMPRESSION: 1. Mid abdominal high-grade small bowel obstruction with pneumatosis involving jejunum proximal to the transition, concerning for bowel infarction. No mesenteric or portal venous gas demonstrated at this time. No evidence of bowel obstruction. Recommend surgical consultation. 2. Bilateral groundglass pulmonary infiltrate suggesting atypical or viral pneumonia. 3. Dilated and fluid-filled stomach and esophagus secondary to bowel obstruction. 4. Other nonurgent findings within body of report. Individualized dose optimization techniques were used for this CT. at 0554 Reported and signed by: Panchito Cason MD Electronically Signed: Panchito Cason MD at 5:52 EST Tel , Service support , ADDENDUM: 07/20/21 0606 IMPRESSION: 1. Mid abdominal high-grade small bowel obstruction with pneumatosis involving jejunum proximal to the transition, concerning for bowel infarction. No mesenteric or portal venous gas demonstrated at this time. No evidence of bowel obstruction. Recommend surgical consultation. 2. Bilateral groundglass pulmonary infiltrate suggesting atypical or viral pneumonia. 3. Dilated and fluid-filled stomach and esophagus secondary to bowel obstruction. 4. Other nonurgent findings within body of report. Individualized dose optimization techniques were used for this CT. at 0554 Reported and signed by: Panchito Cason MD N.B. : The above Results were Read Back by Panchito Cason MD to Dr. Cecilio MD, and understanding confirmed on 07/20/2021 05:59:09 (ET). Electronically Signed: Panchito Cason MD at 5:52 EST Tel , Service support , Assessment & Plan Assessment/Plan (1) SBO (small bowel obstruction): (2) Pneumatosis of intestines: PLAN: Patient is getting IV Zosyn in the ER as well as potassium. Discussed with the patient and his would plan on exploratory laparoscopic, possible laparotomy, possible bowel resection. Including risks not limited to bleeding, infection, injury to another organ, and anesthesia. Also discussed with patient and his since he is currently satting 85% on a nonrebreather there could be a chance of him still being intubated in the ICU after surgery. Nancy Hall M.D. Pager: [phone] [facility] [address] [place] [address], [facility], [address] [place] [address] Office: [phone] Procedure Criteria Type of Procedure Procedure Type: Elective Elective Risks - COVID COVID Risk Discussion: The surgeon/proceduralist and patient have discussed in detail the risk of exposure to and/or potential harm posed by the COVID-19 virus with having a surgery/procedure at this time versus the risk of delaying the surgery/procedure. It is not possible to know either the risk of delaying the surgery or procedure or chance of getting an infection with perfect accuracy, but a joint decision was made between the patient and the surgeon/proceduralist to proceed at this time with the scheduled surgery/procedure as indicated on the consent form.
--- NOTE | 2021-07-20 06:58 | NURSING ---
SURGEON IN ROOM
--- NOTE | 2021-07-20 07:30 | COL_PTH ---
PATIENT: BARRERA HENDRICKS LOC: [facility] U#:[id number] AGE/SX: 71/M ROOM: [facility] RE07/20/[address]: Dr. Nancy Hall MD : 1950 BED: 1 DIS: 07/26/2021 SPEC #: [id number] RECD: 07/20/21 12:09 STATUS: TRELL YARIEL #: [id number] MARGE: 07/20/21 07:[address]: Nancy Hall DEPT: SURGICAL PATHOLOGY RECD BY: Heike Petersen ENTERED: 07/20/21 13:30 SP TYPE: COLON OTHR DR: MD Dr. Drew Mathews, DO Tana Anthony, STRAW BALER-C Dr. Justin Ybarra MD Tissues: Small intestine mucous membrane Procedures: Surgery Specimen Level III Surgery Specimen Level V HEADER OPERATION: Exploratory laparotomy, bowel resection PRE-OP DIAGNOSIS: Small bowel obstruction, pneumatosis of intestine TISSUE SUBMITTED: Proximal mid jejunum, suture distal MICROSCOPIC DIAGNOSIS Proximal mid jejunum, segmental resection: Segment of small bowel with focal mild submucosal and serosal congestion, clinically small bowel obstruction. Fragments of food material in the container. Small bowel donut, no pathologic diagnosis. See comment. SJ:rg 07/21/2021 COMMENT Clinical correlation and appropriate follow up are necessary. MICROSCOPIC DESCRIPTION Slides are reviewed. GROSS DESCRIPTION Received in fixative is one container labeled with the patient's name and designated proximal mid jejunum, suture distal. The specimen consists of a previously opened small segment of small intestine measuring 5 cm in length. Both resection margins are stapled. The distal margin is oriented by a suture. No mucosal lesion is identified. A small amount of food particle is noted in the lumen. Sections reveal unremarkable cut surfaces. Attached mesenteric tissue measures up to 1 cm in width. No obviously enlarged lymph node is identified. Also present in the container is a donut-shaped piece of small bowel measuring 4 x 4 x 1 cm. Multiple dang are noted in this piece. Also present in the container are multiple pieces of food particles. Childcare Provider sections are submitted in six cassettes as follows: 1??distal resection margin, 2 - proximal resection margin, 3 & 4 - bowel wall, 5 - mesenteric tissue, 6??joseph. / KATHARINA:sundar 07/20/21 TC:5 CPT: 84154, 509241
[2021-07-20 07:43] LABS: Bacteria 0 SEEN /hpf (None Seen); Mucous, Urine 0 SEEN /hpf (<or=2+); Red Blood Cells-Urine 0 SEEN /hpf (0-5); White Blood Cells 0 SEEN /hpf (0-5)
[2021-07-20 07:46] LABS: Color, Urine Yellow (Yellow); Glucose, Dipstick Normal (Normal); Ketone-Dipstick Negative (Negative); Leukocyte Esterase-Dipstick Negative /ul (Negative); Nitrite-Dipstick Negative (Negative); Occult Blood-Urine 150 /ul (Negative); Protein-Dipstick 30 mg/dl (Negative); Urine Bilirubin Dipstick Negative (Negative); Urine Clarity Clear (Clear); Urine Urobilinogen Normal (Normal)
[2021-07-20 07:52] LABS: Magnesium 2.4 mg/dL (1.6-2.6)
[2021-07-20 07:55] LABS: Squamous Epithelial Cells - UA 0-5 SEEN /hpf (0-5)
--- NOTE | 2021-07-20 07:58 | RAD_ITS ---
STUDY: X-RAY CHEST REASON FOR EXAM: Male, 71 years old. line placement TECHNIQUE: Single AP portable view of the chest. COMPARISON: None. FINDINGS: Nasogastric tube with tip below the diaphragm. Right internal jugular deep venous alignment of the catheter overlying the superior vena cava. Poor inspiration with some bibasilar atelectasis. There is no demonstrated pleural abnormality. There is moderate cardiac enlargement. Normal mediastinum and philip. Normal visualized pulmonary arteries. Normal visualized aortic arch and descending thoracic aorta. Normal visualized thoracic spine. Normal visualized ribs, clavicles, and shoulders. There is no demonstrated abnormality of the visualized soft tissue structures of the upper abdomen. RAD/CXR for Line Placement IMPRESSION: 1. Nasogastric tube with the tip below the diaphragm. 2. Right internal jugular deep venous line with tip of the catheter overlying the superior vena cava no pneumothorax. 3. Poor inspiration with bibasilar atelectasis. Electronically Signed: Brandyn Lou MD at 8:28 EST Tel , Service support ,
--- NOTE | 2021-07-20 07:59 | SUR.PREOP ---
0745Pt in PACU on monitor, VS stable at this time. Dr. Hall at bedside preparing for central line insertion. Time out performed with this RN and Kalie Cummings RN. 0800 Central line placement complete per Dr. Hall, Xray bedside.
--- NOTE | 2021-07-20 08:04 | SUR.PREOP ---
Domenic to use Central line per Dr. Hall
[2021-07-20] MEDS: Potassium Chloride 20mEq/100mL 20 MEQ/100 ML IV.SOLN. 100 MEQ IV BOLUS (08:08)
[2021-07-20 09:06] LABS: Reflex Lactate? Y
--- NOTE | 2021-07-20 09:18 | PCM.OPRPT ---
Report of Operation Date of Procedure: 07/20/21 Pre-Operative Diagnosis: Need for IV access, sepsis Post-Operative Diagnosis: Same Surgery/Procedure Performed:: Insertion right IJ triple-lumen Surgeon: Nancy Hall Type of Anesthesia: Local Description of Procedure: Procedure: A time-out was completed to verify correct patient, indication, medication allergies, procedure, coagulation studies, informed consent signed, and equipment needed. The patient was placed in the supine position for a central line placement to the right IJ vein. The patients right neck was prepped using chlorhexidine and a full body sterile drape was applied. 1% lidocaine was used to anesthetize the surrounding skin. A triple-lumen central line catheter introduced into the internal jugular vein using the modified Seldinger technique with the assistance of ultrasound. Guidewire was placed in the internal jugular vein and threaded easily. The site was dilated then catheter was placed. The catheter was threaded smoothly over the guidewire, the guidewire was removed easily, nonpulsatile blood returned. All ports were aspirated of air and flushed with sterile saline. The catheter was sutured in place and covered with an occlusive dressing . X-ray was verified the end of the procedure showing catheter in place and no pneumothorax. Grafts/Implants Used: Triple-lumen catheter Complications none
--- NOTE | 2021-07-20 09:19 | OP.PCM_ITS ---
Report of Operation Date of Procedure: 07/20/21 Pre-Operative Diagnosis: Small bowel obstruction, pneumatosis, elevated lactic acid, leukocytosis, acute hypoxia Post-Operative Diagnosis: Small bowel bezoar causing obstruction Description of Surgical Findings:: Small bowel was ran and was all viable. There was an area of bezoar that was unable to be passed this area was resected Surgeon: Nancy Hall Type of Anesthesia: General/Supplemental Anesthesiologist: Xavier Guerrier Special Medications: Zosyn IV from the ER Specimen's removed: Proximal/mid jejunum with bezoar Estimated Blood Loss (mL): < 20 cc Description of Procedure: Indications: 71-year-old male presented ER due to nausea and vomiting since Monday. Patient was noted to have a white blood count of 23/lactic acid of 13. CT abdomen pelvis was consistent with high-grade small bowel obstruction with pneumatosis the jejunum prior to transition. Patient also had acute hypoxia as he was on a nonrebreather only satting 85%. Patient did get an NG placed in the ER had 2 L out initially. Patient agreed to exploratory laparoscopic, possible laparotomy, possible bowel resection Description of procedure: Patient was brought operating placed plan operating ta ble. A timeout was completed verifying correct patient, seizure, site, positioning, special equipment prior beginning procedure. Abdomen is prepped draped in usual sterile fashion. Patient did have issues with setting and was only in the 80s on the ventilator thus went straight to a laparotomy. A midline incision was made with a 10 blade scalpel was deepened to the fascia with electrocautery. The fascia was elevated and incised under direct visualization no injury upon entry into the abdomen. The small bowel was ran from distal to proximal. Small bowel was noted to be very decompressed with only in some dilated small bowel proximally. There is noted to be an obvious transition point and there felt to be some firm material in the proximal mid jejunum that was not able to be milked distally. The small bowel did appear viable. This area of bowel was resected using MIGUEL staplers 75 cm. The antimesenteric borders were brought together and enterotomies were made for the MIGUEL stapler which was fired then TL 60 was used to close the enterotomy. There is noted to be a good patent anastomosis. 3-0 silk suture was used as a crotch stitch. Abdomen was irrigated with saline and suction. The midline incision was closed with 1 PDS running suture. Skin was closed with dang. Telfa and ABDs were placed over the top. Due to patient's acute respiratory status he was kept intubated and taken to the ICU in critical condition. Complications none
[2021-07-20 09:31] LABS: Base Excess -4 mmol/L (-2 to +2); Bicarbonate 21.4 mmol/L (22-26); Blood Gas Specimen Type ART; FI02 100; Mode AC/PC; O2 Delivery Device Adult Vent; PO2 47 mmHG (75-100); PS 25; RR 14; SITE Art Line; SO2 82 % (95-99); Total Carbon Dioxide 23 mmol/L; pCO2 35.4 mmHg (35-45); pH 7.39 (7.35-7.45)
[2021-07-20 09:50] LABS: Base Excess -3 mmol/L (-2 to +2); Blood Gas Specimen Type ART; FI02 100; Mode AC/PC; PEEP 15; PO2 233 mmHG (75-100); PS 25; RR 14; SITE Art Line; SO2 100 % (95-99); Total Carbon Dioxide 23 mmol/L; pCO2 38.3 mmHg (35-45); pH 7.37 (7.35-7.45)
--- NOTE | 2021-07-20 10:00 | RAD_ITS ---
STUDY: X-RAY CHEST REASON FOR EXAM: Male, 71 years old. et tube placement TECHNIQUE: Single AP portable view of the chest. COMPARISON: 07/20/2021 at 07 56 FINDINGS: Interval placement of endotracheal tube with the tip approximately 4 cm above the cameron. Nasogastric tube and right internal jugular deep Both which are unchanged. Increase in the alveolar opacities in both lungs consistent with worsening bilateral pneumonia, pulmonary edema, or air DS. There is no demonstrated pleural abnormality. Normal size heart. Normal mediastinum and philip. Normal visualized pulmonary arteries. Normal visualized aortic arch and descending thoracic aorta. Normal visualized thoracic spine. Normal visualized ribs, clavicles, and shoulders. There is no demonstrated abnormality of the visualized soft tissue structures of the upper abdomen. RAD/Chest 1 View (Portable) IMPRESSION: 1. Interval placement of endotracheal tube with the tip above the cameron. 2. Nasogastric tube and right internal jugular deep venous line which are unchanged. 3. Worsening bibasilar atelectasis, pneumonia, pulmonary edema, or ARDS. Electronically Signed: Brandyn Lou MD at 10:28 EST Tel , Service support ,
[2021-07-20] MEDS: Propofol 10MG/Ml 1,000 MG/100 ML Bottle 6.6 MG CONT INF (10:10)
[2021-07-20 10:24] LABS: PEEP 15
--- NOTE | 2021-07-20 10:28 | EX.PCM.CONCC ---
Assessment & Plan Assessment/Plan (1) SBO (small bowel obstruction): (2) Pneumatosis of intestines: (3) Aspiration pneumonia due to gastric secretions: (4) Acute respiratory failure with hypoxia: PLAN: RECOMMENDATIONS: 1. Continue current vent settings. Wean FiO2 as tolerated 2. Discontinue pressors and IV fluids if possible 3. Hold baseline antihypertensives 4. Initiate propofol and fentanyl. Discontinue paralytics. 5. Empiric antibiotics per surgery, would recommend at least Unasyn for aspiration 6. Tylenol as needed for pain/fever 7. Recheck electrolytes with supplementation as necessary IMPRESSIONS: 1. Acute hypoxic respiratory failure secondary to aspiration pneumonia Chest x-ray shows endotracheal tube in appropriate position. Patient does have worsening infiltrates bilaterally. Patient has received significant volume resuscitation in the setting of pancreatitis. We will continue to monitor blood pressures. If improved, will discontinue IV fluids. If patient continues to be stable from a hemodynamic standpoint, could consider diuretics. Previous ABG shows adequate oxygenation and ventilation. Will wait for paralytics to wear off and then will repeat ABG. Patient should be covered with antibiotics, at least Unasyn for aspiration, but may be Zosyn for bowel perforation. Defer to surgery. 2. Acute kidney injury Patient with significant elevation in creatinine with decreased urine output. Patient did have hypoxia with hypotension for quite some time. Patient also presented with a lactate about 10. Repeat electrolytes with repletion if necessary. No indication for renal replacement therapy previously on laboratory data. 3. Distributive shock secondary to acute pancreatitis secondary to perforated bowel Patient with elevated lactate, lipase, white blood cell count and glucose. Given age, this gives a [place] criteria of 3 on admission. We will send an LDH as this could potentially add another points. Currently, this would account for his 15% predicted mortality. Continue to follow blood sugars closely. These could be highly labile 4. Septic shock secondary to perforated bowel Patient was on pressors for a short period of time. Patient does have pneumatosis indicating probable perforation. Patient did not have a lot of blood loss during the surgery. We will continue pressors if necessary. If not necessary, we will hold on IV fluids given patient's respiratory failure. 5. Use of tadalafil/GERD/obesity/poor history/hyperlipidemia/hypertension Complicates care, management, recovery and prognosis. Avoid nitrates. Hold statins for now given high risk for hepatitis. Hold hypertensive medications given problems 3 and 4. TIME: 60 minutes of critical care time spent addressing patient's acute hypoxic respiratory failure, acute kidney injury, distributive shock, review of all data and collaboration with care team (9 AM to 10:45 AM) HPI Consult Data Date of Consult: 07/20/21 HPI Narrative HPI Narrative: BARRERA HENDRICKS is a 71 M, with a reported past medical history of hypertension and GERD, who presents to [facility] 07/20/2021 secondary to worsening abdominal distention, pain and vomiting. Patient had reportedly been seen in the ER on the day previous with similar type of symptoms, but these became more severe throughout the day so he presented this morning. Patient had been given IV fluids and Zofran at that time. Patient has continued to vomit since going home and did progressed to coughing up black/coffee-ground material. Patient had not had any bowel movements and denied any difficulty breathing in the ER. Patient did have a history of cholecystectomy in the past. In the ER, patient was tachycardic at 125 bpm, tachypneic at 41 breaths/min but normotensive. Patient was requiring a nonrebreather to maintain saturations. Laboratory work-up showed a white blood cell count of 23.3, hemoglobin of 13.6 and platelets of 303. Potassium was low at 2.9, BUN of 57 and creatinine of 2.8. Lactate was elevated at 13.7 with a high-sensitivity troponin of 278. Lipase was elevated at almost 12,000. INR was within normal limits and magnesium was 2.4. UA was unremarkable. A CT of the abdomen and pelvis showed a mid abdominal high-grade small bowel obstruction with pneumatosis and bilateral groundglass opacities in the lungs. Patient did have a dilated stomach. A chest x-ray had shown the NG below the diaphragm and a right IJ. EKG showed sinus tachycardia. Given pneumatosis, the patient was taken to the OR immediately. I was called at approximately 9 AM from the OR that they were having difficulty with oxygenation. During intubation, patient reportedly had secretions in his airway. Patient had much of his procedure with marginal saturations. Patient was brought to the intensive care unit on pressors with bag mask ventilation. See OR documentation for previous vent settings. The patient was placed on a PEEP of 8 with 100% FiO2. Arterial line showed significant hypertension. Patient reportedly had been given 30 of rocuronium prior to transport. Unable to obtain a review of systems secondary to paralytic and intubation. [facility] Medical History Hypertension Home Medications Cholecalciferol (Vitamin D3) [Vitamin D3] 4,000 unit PO DAILY 12/10/15 [History Last Taken Unknown] L-Theanine 100 mg PO/SL DAILY 12/10/15 [History Last Taken Unknown] ezetimibe 10 mg PO DAILY 12/10/15 [History Last Taken Unknown] folic acid 1 mg PO DAILY@0800 12/10/15 [History Last Taken Unknown] multivitamin [Daily Multiple] 1 ea PO DAILY 12/10/15 [History Last Taken 12/16/15] atenolol 100 mg PO DAILY 07/19/21 [History Last Taken Unknown] coQ10 (ubiquinol) 200 mg PO DAILY 07/19/21 [History Last Taken Unknown] famotidine [Pepcid] 20 mg PO DAILY PRN #14 tab 07/19/21 [Rx Last Taken Unknown] losartan 100 mg PO DAILY 07/19/21 [History Last Taken Unknown] magnesium 100 mg PO TID 07/19/21 [History Last Taken Unknown] ondansetron HCl [Zofran] 4 mg PO Q8H PRN #14 tab 07/19/21 [Rx Last Taken Unknown] sertraline 50 mg PO DAILY 07/19/21 [History Last Taken Unknown] spironolactone 50 mg PO DAILY 07/19/21 [History Last Taken Unknown] tadalafil 10 mg PO DAILY 07/19/21 [History Last Taken Unknown] Allergy/AdvReac Type Severity Reaction Status Date / Time atorvastatin calcium Allergy Other Verified 07/19/21 09:03 [From Lipitor] fenofibrate nanocrystallized Allergy Other Verified 07/19/21 09:03 [From Tricor] fenofibrate,micronized Allergy Other Verified 07/19/21 09:03 [From Tricor] hydrochlorothiazide Allergy Other Verified 07/19/21 09:03 latex Allergy Hives Verified 07/19/21 09:03 Surgical History History of cholecystectomy History of parathyroidectomy History of prostatectomy History of tonsillectomy Social History Smoking Status: Former smoker ROS ROS Narrative See HPI Physical Exam Const no apparent distress Constitutional Narrative: Paralyzed General Appearance: intubated and patient mechanically ventilated Nutritional Appearance: obese HEENT normocephalic and head/scalp atraumatic Eyes conjunctivae normal and no scleral icterus Chest inspection of chest normal Chest: symmetrical chest wall rise; Negative for crepitus Resp Resp Narrative: Good vent synchrony. Effort and Inspection: mechanically ventilated; Negative for prolonged expiratory phase Auscultation: rales bilateral and diminished lung sounds; Negative for rhonchi or wheezes Cardio regular rhythm, S1 normal heart sound, S2 normal heart sound, no murmurs, no rub and no gallops Rate: tachycardic GI GI Narrative: Exam limited secondary to paralysis. Surgical sites are clean, dry and intact Inspection: abdominal distention Palpation: Negative for tender or guarding Extremity no clubbing, cyanosis or edema Skin Skin Narrative: Surgical sites are clean, dry and intact Neuro Neuro Narrative: Currently paralyzed Psych Psych Narrative: Currently paralyzed Lab / Micro Data Result Diagrams: 07/20/21 04:59 07/20/21 04:59 Labs: Laboratory Results - last 24 hr 07/20/21 04:59: WBC 23.3 H, RBC 4.98, Hgb 13.6, Hct 42.4, MCV 85.1, MCH 27.3, MCHC 32.1, RDW Std Deviation 43.7, RDW Coeff of Mike 14.1, Plt Count 303, MPV 10.5, Immature Gran % (Auto) 1.100 H, Neut % (Auto) 87.1 H, Lymph % (Auto) 4.3 L, Ector % (Auto) 7.4, Eos % (Auto) 0.0, Baso % (Auto) 0.1, Absolute Neuts (auto) 20.3 H, Absolute Lymphs (auto) 0.99, Nucleated RBC % 0, Differential Comment SCANNED, Diff Path Review January07/20/21 04:59: Sodium 137, Potassium 2.9 L, Chloride 92 L, Carbon Dioxide 22.0, Anion Gap 23 H, BUN 57 H, Creatinine 2.81 H, Estim Creat Clear Calc 23.67, Est GFR (MDRD) Af Amer 29 L, Est GFR (MDRD) Non-Af 24 L, BUN/Creatinine Ratio 20.3 H, Glucose 299 H, Calcium 8.9, Total Bilirubin 0.60, AST 30, ALT 35, Alkaline Phosphatase 72, Troponin I High Sens 278 H*, Total Protein 7.6, Albumin 3.7, Globulin 3.9, Albumin/Globulin Ratio 0.9, Lipase 52824 H 07/20/21 04:59: Lactic Acid 13.7 H* 07/20/21 04:59: Total Creatine Kinase 315 H 07/20/21 04:59: Magnesium 2.4 07/20/21 06:05: PT 16.1 H, INR 1.4, APTT 26.3 07/20/21 06:07: Blood Type B POSITIVE, Antibody Screen NEGATIVE 07/20/21 06:07: Crossmatch See Detail 07/20/21 07:35: Urine Color Yellow, Urine Clarity Clear, Urine pH 5.0, Ur Specific [place] 1.020, Urine Protein 30 H, Urine Glucose (UA) Normal, Urine Ketones Negative, Urine Occult Blood 150 H, Urine Nitrite Negative, Urine Bilirubin Negative, Urine Urobilinogen Normal, Ur Leukocyte Esterase Negative, Urine RBC 0 SEEN, Urine WBC 0 SEEN, Ur Squamous Epith Cells 0-5 SEEN, Urine Bacteria 0 SEEN, Urine Mucus 0 SEEN Micro: Microbiology 07/20/21 06:09 Interface Orders SARS-CoV-2 Antigen (Rapid) - Final 07/20/21 05:21 Stool Stool Occult Blood (PEDRO) - Final Occult Blood Positive ABG Data ABG results: ABG 07/20/21 07/20/21 09:20 09:43 Specimen Type ART ART Sample Site Art Line Art Line pH 7.39 7.37 Bicarbonate Actual 21.4 L 22.0 Total CO2 23 23 Base Excess -4 L -3 L O2 Saturation 82 L 100 H O2 % 100 100 ABG pCO2 35.4 38.3 ABG pO2 47 L 233 H Respiration Rate 14 14 O2 Delivery Device Adult Vent Vent Mode AC/PC AC/PC POC PEEP 15 15 POC Pressure Suppt 25 25 Rhythm Strip Rhythm Strip: Sinus Tach Rate: 109 Ectopy: None Radiology Impression Abdomen/Pelvis CT 07/20/21 04:50 IMPRESSION: 1. Mid abdominal high-grade small bowel obstruction with pneumatosis involving jejunum proximal to the transition, concerning for bowel infarction. No mesenteric or portal venous gas demonstrated at this time. No evidence of bowel obstruction. Recommend surgical consultation. 2. Bilateral groundglass pulmonary infiltrate suggesting atypical or viral pneumonia. 3. Dilated and fluid-filled stomach and esophagus secondary to bowel obstruction. 4. Other nonurgent findings within body of report. Individualized dose optimization techniques were used for this CT. at 0554 Reported and signed by: Panchito Cason MD Electronically Signed: Panchito Cason MD at 5:52 EST Tel , Service support , ADDENDUM: 07/20/21 0606 IMPRESSION: 1. Mid abdominal high-grade small bowel obstruction with pneumatosis involving jejunum proximal to the transition, concerning for bowel infarction. No mesenteric or portal venous gas demonstrated at this time. No evidence of bowel obstruction. Recommend surgical consultation. 2. Bilateral groundglass pulmonary infiltrate suggesting atypical or viral pneumonia. 3. Dilated and fluid-filled stomach and esophagus secondary to bowel obstruction. 4. Other nonurgent findings within body of report. Individualized dose optimization techniques were used for this CT. at 0554 Reported and signed by: Panchito Cason MD N.B. : The above Results were Read Back by Panchito Cason MD to Dr. Cecilio MD, and understanding confirmed on 07/20/2021 05:59:09 (ET). Electronically Signed: Panchito Cason MD at 5:52 EST Tel , Service support , Chest X-Ray 07/20/21 07:58 IMPRESSION: 1. Nasogastric tube with the tip below the diaphragm. 2. Right internal jugular deep venous line with tip of the catheter overlying the superior vena cava no pneumothorax. 3. Poor inspiration with bibasilar atelectasis. Electronically Signed: Brandyn Lou MD at 8:28 EST Tel , Service support , Chest X-Ray 07/20/21 10:00 IMPRESSION: 1. Interval placement of endotracheal tube with the tip above the cameron. 2. Nasogastric tube and right internal jugular deep venous line which are unchanged. 3. Worsening bibasilar atelectasis, pneumonia, pulmonary edema, or ARDS. Electronically Signed: Brandyn Lou MD at 10:28 EST Tel , Service support , Charges/Coding Procedures Hospitalists Procedures: [address] [facility] [address] [address]
[2021-07-20] MEDS: Sugammadex Sodium 200 MG/2 ML VIAL IV (11:12)
[2021-07-20] MEDS: Nitro/D5w 25MG/250ML Bottle 25 MG (11:12)
[2021-07-20] MEDS: Acetaminophen 650 MG/20 ML UDC GT ×2 (11:32→17:54)
[2021-07-20] MEDS: Chlorhexidine 15 ML PO ×2 (11:35→22:08)
[2021-07-20 11:38] LABS: ALB/GLOB Ratio 0.9 RATIO (0.9-2.4); AST(SGOT) 63 U/L (15-37); Alanine Aminotransfer ALT/SGPT 36 U/L (16-61); Albumin, Serum 2.6 g/dL (3.2-5.0); Alkaline Phosphatase 51 U/L (45-117); Anion Gap 8 (5-15); BUN 54 mg/dL (7-18); BUN/Creat Ratio 24.1 RATIO (10-20); Calcium,Total 7.6 mg/dL (8.5-10.1); Chloride 104 mmol/L (98-107); Creatinine, Serum 2.24 mg/dL (0.70-1.30); EST Glomerular Filtration Rate 31 mL/min (>60); Est Glom Filt Rate - Afr Amer 37 mL/min (>60); Estimated Creatinine Clearance 29.69 ml/min; Glucose 131 mg/dL (74-106); LDH 249 U/L (87-241); Potassium 3.9 mmol/L (3.5-5.1); Protein, Total 5.6 g/dL (6.4-8.2); Sodium Level 139 mmol/L (136-145)
[2021-07-20 11:40] LABS: Base Excess -2 mmol/L (-2 to +2); Bicarbonate 23.1 mmol/L (22-26); Blood Gas Specimen Type ART; FI02 60; Mode AC; O2 Delivery Device ET Tube; PEEP 8; PO2 63 mmHG (75-100); RR 14; SITE Art Line; SO2 92 % (95-99); Total Carbon Dioxide 24 mmol/L; Vt 450; pCO2 38.5 mmHg (35-45); pH 7.39 (7.35-7.45)
[2021-07-20 11:42] LABS: Lactic Acid 3.7 mmol/L (0.4-1.9)
[2021-07-20] MEDS: Heparin Injection (Vial) 5,000 UNIT/ML VIAL 5000 UNIT SC ×2 (12:16→22:20)
[2021-07-20] MEDS: 0.9% Normal Saline 1,000 ML 75 ML IV (12:41)
[2021-07-20 15:04] LABS: Reflex Lactate? Y
[2021-07-20 15:40] LABS: Pathologist Review Reviewed
[2021-07-20 15:50] LABS: Absolute Neutrophil Count 1.8 X10^3/uL (2.0-7.7); Basophil# 0.01 X10^3/uL; Basophil% 0.4 % (0-1); Hematocrit 39.3 % (40-54); Hemoglobin 13.1 g/dL (13.0-16.5); Lymphocyte % 27.6 % (19-41); Mean Corp Hgb Conc 33.3 g/dL (32-36); Monocyte# 0.08 X10^3/uL; Monocyte% 3.1 % (0-10); NRBC Flagged by Analyzer 0 % (0-5); Neutrophil # 1.75 X10^3/uL (2.7-7.7); Neutrophil % 68.9 % (47-70); POSITIVE MORPHOLOGY YES; Platelet Count 229 K/mm3 (150-450); RBC Distribution Width CV 14.4 % (11.6-14.6); Red Blood Count 4.68 M/mm3 (4.6-6.2); White Blood Count 2.5 K/mm3 (4.4-11.0)
[2021-07-20 15:53] LABS: Differential Indicated SCAN CRITERIA MET
--- NOTE | 2021-07-20 18:24 | PN.SURG_ITS ---
Subjective Subjective Patient still intubated and sedated. Patient had been getting Tylenol. Objective Data Objective Data Vital Signs: Vital Signs Temp Pulse Resp BP Pulse Ox 102.6 F H 94 18 119/55 L 97 07/20/21 18:00 07/20/21 18:00 07/20/21 18:00 07/20/21 18:00 07/20/21 18:00 Oxygen Flow Rate (L/min) 15 Oxygen Delivery Method Mechanical Ventilator Weight: 241 lb 2.971 oz Body Mass Index (BMI) 36.6 Intake & Output: Intake and Output for Last 24 Hours 07/18/21 07/19/21 07/20/21 23:59 23:59 23:59 Intake Total 3508.03 / 3508.03 Output Total 2245 / 2245 Balance 1263.03 / 1263.03 Lab / Micro Data Result Diagrams: 07/20/21 10:55 07/20/21 10:55 Labs: Laboratory Results - last 24 hr 07/20/21 04:59: WBC 23.3 H, RBC 4.98, Hgb 13.6, Hct 42.4, MCV 85.1, MCH 27.3, MCHC 32.1, RDW Std Deviation 43.7, RDW Coeff of Mike 14.1, Plt Count 303, MPV 10.5, Immature Gran % (Auto) 1.100 H, Neut % (Auto) 87.1 H, Lymph % (Auto) 4.3 L , [place] % (Auto) 7.4, Eos % (Auto) 0.0, Baso % (Auto) 0.1, Absolute Neuts (auto) 20.3 H, Absolute Lymphs (auto) 0.99, Nucleated RBC % 0, Differential Comment SCANNED, Diff Path Review Reviewed 07/20/21 04:59: Sodium 137, Potassium 2.9 L, Chloride 92 L, Carbon Dioxide 22.0, Anion Gap 23 H, BUN 57 H, Creatinine 2.81 H, Estim Creat Clear Calc 23.67, Est GFR (MDRD) Af Amer 29 L, Est GFR (MDRD) Non-Af 24 L, BUN/Creatinine Ratio 20.3 H , Glucose 299 H, Calcium 8.9, Total Bilirubin 0.60, AST 30, ALT 35, Alkaline Phosphatase 72, Troponin I High Sens 278 H*, Total Protein 7.6, Albumin 3.7, Globulin 3.9, Albumin/Globulin Ratio 0.9, Lipase 00889 H 07/20/21 04:59: Lactic Acid 13.7 H* 07/20/21 04:59: Total Creatine Kinase 315 H 07/20/21 04:59: Magnesium 2.4 07/20/21 06:05: PT 16.1 H, INR 1.4, APTT 26.3 07/20/21 06:07: Blood Type B POSITIVE, Antibody Screen NEGATIVE 07/20/21 06:07: Crossmatch See Detail 07/20/21 07:35: Urine Color Yellow, Urine Clarity Clear, Urine pH 5.0, Ur Specific [place] 1.020, Urine Protein 30 H, Urine Glucose (UA) Normal, Urine Ketones Negative, Urine Occult Blood 150 H, Urine Nitrite Negative, Urine Bilirubin Negative, Urine Urobilinogen Normal, Ur Leukocyte Esterase Negative, Urine RBC 0 SEEN, Urine WBC 0 SEEN, Ur Squamous Epith Cells 0-5 SEEN, Urine Bacteria 0 SEEN, Urine Mucus 0 SEEN 07/20/21 10:55: WBC 2.5 L, RBC 4.68, Hgb 13.1, Hct 39.3 L, MCV 84.0, MCH 28.0, MCHC 33.3, RDW Std Deviation 44.0 H, RDW Coeff of Mike 14.4, Plt Count 229, MPV 11.0, Immature Gran % (Auto) 0.000, Neut % (Auto) 68.9, Lymph % (Auto) 27.6, [place] % (Auto) 3.1, Eos % (Auto) 0.0, Baso % (Auto) 0.4, Absolute Neuts (auto) 1.8 L, Absolute Lymphs (auto) 0.70 L, Nucleated RBC % 0, Differential Comment 07/20/21 10:55: Sodium 139, Potassium 3.9, Chloride 104, Carbon Dioxide 27.0, Anion Gap 8, BUN 54 H, Creatinine 2.24 H, Estim Creat Clear Calc 29.69, Est GFR (MDRD) Af Amer 37 L, Est GFR (MDRD) Non-Af 31 L, BUN/Creatinine Ratio 24.1 H, Glucose 131 H, Calcium 7.6 L, Total Bilirubin 1.00, AST 63 H, ALT 36, Alkaline Phosphatase 51, Lactate Dehydrogenase 249 H, Total Protein 5.6 L, Albumin 2.6 L, Globulin 3.0, Albumin/Globulin Ratio 0.9 07/20/21 10:55: Lactic Acid 3.7 H* Micro: Microbiology 07/20/21 06:09 Interface Orders SARS-CoV-2 Antigen (Rapid) - Final 07/20/21 05:21 Stool Stool Occult Blood (PEDRO) - Final Occult Blood Positive ABG Data ABG results: ABG 07/20/21 07/20/21 07/20/21 09:20 09:43 11:34 Specimen Type ART ART ART Sample Site Art Line Art Line Art Line pH 7.39 7.37 7.39 Bicarbonate Actual 21.4 L 22.0 23.1 Total CO2 23 23 24 Base Excess -4 L -3 L -2 O2 Saturation 82 L 100 H 92 L O2 % 100 100 60 ABG pCO2 35.4 38.3 38.5 ABG pO2 47 L 233 H 63 L Respiration Rate 14 14 14 O2 Delivery Device Adult Vent ET Tube Vent Mode AC/PC AC/PC AC Tidal Volume 450 POC PEEP 15 15 8 POC Pressure Suppt 25 25 Radiography Diagnostic Testing: Radiology Impression Abdomen/Pelvis CT 07/20/21 04:50 IMPRESSION: 1. Mid abdominal high-grade small bowel obstruction with pneumatosis involving jejunum proximal to the transition, concerning for bowel infarction. No mesenteric or portal venous gas demonstrated at this time. No evidence of bowel obstruction. Recommend surgical consultation. 2. Bilateral groundglass pulmonary infiltrate suggesting atypical or viral pneumonia. 3. Dilated and fluid-filled stomach and esophagus secondary to bowel obstruction. 4. Other nonurgent findings within body of report. Individualized dose optimization techniques were used for this CT. at 0554 Reported and signed by: Panchito Cason MD Electronically Signed: Panchito Cason MD at 5:52 EST Tel , Service support , ADDENDUM: 07/20/21 0606 IMPRESSION: 1. Mid abdominal high-grade small bowel obstruction with pneumatosis involving jejunum proximal to the transition, concerning for bowel infarction. No mesenteric or portal venous gas demonstrated at this time. No evidence of bowel obstruction. Recommend surgical consultation. 2. Bilateral groundglass pulmonary infiltrate suggesting atypical or viral pneumonia. 3. Dilated and fluid-filled stomach and esophagus secondary to bowel obstruction. 4. Other nonurgent findings within body of report. Individualized dose optimization techniques were used for this CT. at 0554 Reported and signed by: Panchito Cason MD N.B. : The above Results were Read Back by Panchito Cason MD to Dr. Cecilio MD, and understanding confirmed on 07/20/2021 05:59:09 (ET). Electronically Signed: Panchito Cason MD at 5:52 EST Tel , Service support , Chest X-Ray 07/20/21 07:58 IMPRESSION: 1. Nasogastric tube with the tip below the diaphragm. 2. Right internal jugular deep venous line with tip of the catheter overlying the superior vena cava no pneumothorax. 3. Poor inspiration with bibasilar atelectasis. Electronically Signed: Brandyn Lou MD at 8:28 EST Tel , Service support , Chest X-Ray 07/20/21 10:00 IMPRESSION: 1. Interval placement of endotracheal tube with the tip above the cameron. 2. Nasogastric tube and right internal jugular deep venous line which are unchanged. 3. Worsening bibasilar atelectasis, pneumonia, pulmonary edema, or ARDS. Electronically Signed: Brandyn Lou MD at 10:28 EST Tel , Service support , Rhythm Strip Rhythm Strip: Sinus Tach Rate: 109 Ectopy: None Physical Exam Const Constitutional Narrative: Intubated and sedated Cardio regular rate GI soft to palpation Inspection: abdominal distention Assessment & Plan Assessment/Plan (1) S/P small bowel resection: (2) Acute respiratory failure with hypoxia: (3) Aspiration pneumonia due to gastric secretions: (4) Acidosis, lactic: PLAN: Continue n.p.o./IV fluids/NG Patient currently on Levophed 5 mcg per an hour however her map is about 70 so may be able to get weaned off. Appreciate ICU help managing the ventilator. Patient currently on IV Zosyn for aspiration pneumonia Nancy Hall M.D. Pager: [phone] [facility] [address] [place] [address], [facility], [address] [place] [address] Office: [phone]
[2021-07-20] MEDS: Propofol 10MG/Ml 1,000 MG/100 ML Bottle 10 MG CONT INF (19:29)
[2021-07-20] MEDS: 0.9% Saline Lock 10 ML Syringe IV (22:20)
[2021-07-20 23:08] LABS: Lactic Acid 3.4 mmol/L (0.4-1.9)
[2021-07-21] VITALS (34 sets, daily range): BP systolic 106–161; BP diastolic 48–71; PULSE 88–116; RESP 14–33; TEMP 37.7–39.2; O2SAT 91–100
[2021-07-21] MEDS: 0.9% Normal Saline 1,000 ML 75 ML IV ×2 (01:59→14:13)
[2021-07-21 04:51] LABS: Absolute Lymphocyte Count 0.56 X10^3/uL (0.83-4.51); Absolute Neutrophil Count 4.5 X10^3/uL (2.0-7.7); Basophil# 0.03 X10^3/uL; Basophil% 0.5 % (0-1); Hematocrit 34.3 % (40-54); Hemoglobin 11.3 g/dL (13.0-16.5); Lymphocyte # 0.56 X10^3/ul (0.83-4.51); Lymphocyte % 10.2 % (19-41); Mean Corp Hgb Conc 32.9 g/dL (32-36); Mean Corpuscular Hgb 27.7 pg (27.0-32.0); Mean Corpuscular Volume 84.1 fL (80-94); Mean Platelet Vol. 10.1 fl (6.2-12.0); Monocyte# 0.36 X10^3/uL; Monocyte% 6.6 % (0-10); NRBC Flagged by Analyzer 0 % (0-5); Neutrophil # 4.48 X10^3/uL (2.7-7.7); POSITIVE DIFFERENTIAL YES; POSITIVE MORPHOLOGY YES; Platelet Count 106 K/mm3 (150-450); RBC Distribution Width CV 14.5 % (11.6-14.6); RBC Distribution Width SD 44.4 fl (35.1-43.9); Red Blood Count 4.08 M/mm3 (4.6-6.2); White Blood Count 5.5 K/mm3 (4.4-11.0)
[2021-07-21 04:58] LABS: Differential Indicated SCAN CRITERIA MET
[2021-07-21 05:14] LABS: Differential Comment SCANNED
[2021-07-21 05:22] LABS: Anion Gap 7 (5-15); BUN 55 mg/dL (7-18); BUN/Creat Ratio 31.6 RATIO (10-20); Calcium,Total 7.7 mg/dL (8.5-10.1); Chloride 103 mmol/L (98-107); Creatinine, Serum 1.74 mg/dL (0.70-1.30); EST Glomerular Filtration Rate 41 mL/min (>60); Est Glom Filt Rate - Afr Amer 50 mL/min (>60); Estimated Creatinine Clearance 38.22 ml/min; Glucose 117 mg/dL (74-106); Magnesium 2.2 mg/dL (1.6-2.6); Phosphorus 2.2 mg/dL (2.5-4.9); Potassium 4.2 mmol/L (3.5-5.1); Sodium Level 137 mmol/L (136-145)
[2021-07-21 06:16] LABS: Base Excess 0 mmol/L (-2 to +2); Bicarbonate 24.1 mmol/L (22-26); Blood Gas Specimen Type ART; FI02 45; O2 Delivery Device Adult Vent; PEEP 5; PO2 60 mmHG (75-100); PS 5; SITE Art Line; SO2 92 % (95-99); Total Carbon Dioxide 25 mmol/L; pCO2 33.5 mmHg (35-45); pH 7.46 (7.35-7.45)
[2021-07-21] MEDS: Acetaminophen 650 MG/20 ML UDC GT ×2 (06:54→14:13)
--- NOTE | 2021-07-21 07:21 | PN.SURG_ITS ---
Subjective Subjective Patient was extubated this morning. No flatus Objective Data Objective Data Vital Signs: Vital Signs Temp Pulse Resp BP Pulse Ox 101.8 F H 100 26 H 110/49 L 94 07/21/21 03:00 07/21/21 04:00 07/21/21 05:00 07/21/21 03:00 07/21/21 03:20 Oxygen Flow Rate (L/min) 15 Oxygen Delivery Method Mechanical Ventilator Weight: 242 lb 11.663 oz Body Mass Index (BMI) 36.6 Intake & Output: Intake and Output for Last 24 Hours 07/19/21 07/20/21 07/21/21 23:59 23:59 23:59 Intake Total 3695.83 / 3710.68 1143.05 / 1143.05 Output Total 2245 / 2445 950 / 950 Balance 1450.83 / 1265.68 193.05 / 193.05 Lab / Micro Data Result Diagrams: 07/21/21 04:40 07/21/21 04:40 Labs: Laboratory Results - last 24 hr 07/20/21 04:59: Diff Path Review Reviewed 07/20/21 04:59: Magnesium 2.4 07/20/21 06:07: Crossmatch See Detail 07/20/21 07:35: Urine Color Yellow, Urine Clarity Clear, Urine pH 5.0, Ur Specific [place] 1.020, Urine Protein 30 H, Urine Glucose (UA) Normal, Urine Ketones Negative, Urine Occult Blood 150 H, Urine Nitrite Negative, Urine Bilirubin Negative, Urine Urobilinogen Normal, Ur Leukocyte Esterase Negative, Urine RBC 0 SEEN, Urine WBC 0 SEEN, Ur Squamous Epith Cells 0-5 SEEN, Urine Bacteria 0 SEEN, Urine Mucus 0 SEEN 07/20/21 10:55: WBC 2.5 L, RBC 4.68, Hgb 13.1, Hct 39.3 L, MCV 84.0, MCH 28.0, MCHC 33.3, RDW Std Deviation 44.0 H, RDW Coeff of Mike 14.4, Plt Count 229, MPV 11.0, Immature Gran % (Auto) 0.000, Neut % (Auto) 68.9, Lymph % (Auto) 27.6, [place] % (Auto) 3.1, Eos % (Auto) 0.0, Baso % (Auto) 0.4, Absolute Neuts (auto) 1.8 L, Absolute Lymphs (auto) 0.70 L, Nucleated RBC % 0, Differential Comment 07/20/21 10:55: Sodium 139, Potassium 3.9, Chloride 104, Carbon Dioxide 27.0, Anion Gap 8, BUN 54 H, Creatinine 2.24 H, Estim Creat Clear Calc 29.69, Est GFR (MDRD) Af Amer 37 L, Est GFR (MDRD) Non-Af 31 L, BUN/Creatinine Ratio 24.1 H, Glucose 131 H, Calcium 7.6 L, Total Bilirubin 1.00, AST 63 H, ALT 36, Alkaline Phosphatase 51, Lactate Dehydrogenase 249 H, Total Protein 5.6 L, Albumin 2.6 L, Globulin 3.0, Albumin/Globulin Ratio 0.9 07/20/21 10:55: Lactic Acid 3.7 H* 07/20/21 22:02: Lactic Acid 3.4 H* 07/21/21 04:40: WBC 5.5, RBC 4.08 L, Hgb 11.3 L, Hct 34.3 L, MCV 84.1, MCH 27.7, MCHC 32.9, RDW Std Deviation 44.4 H, RDW Coeff of Mike 14.5, Plt Count 106 L, MPV 10.1, Immature Gran % (Auto) 0.700, Neut % (Auto) 82.0 H, Lymph % (Auto) 10.2 L, [place] % (Auto) 6.6, Eos % (Auto) 0.0, Baso % (Auto) 0.5, Absolute Neuts (auto) 4.5, Absolute Lymphs (auto) 0.56 L, Nucleated RBC % 0, Differential Comment SCANNED 07/21/21 04:40: Sodium 137, Potassium 4.2, Chloride 103, Carbon Dioxide 27.0, Anion Gap 7, BUN 55 H, Creatinine 1.74 H, Estim Creat Clear Calc 38.22, Est GFR (MDRD) Af Amer 50 L, Est GFR (MDRD) Non-Af 41 L, BUN/Creatinine Ratio 31.6 H, Glucose 117 H, Calcium 7.7 L, Phosphorus 2.2 L, Magnesium 2.2 Micro: Microbiology 07/20/21 06:09 Interface Orders SARS-CoV-2 Antigen (Rapid) - Final 07/20/21 05:21 Stool Stool Occult Blood (PEDRO) - Final Occult Blood Positive ABG Data ABG results: ABG 07/20/21 07/20/21 07/20/21 09:20 09:43 11:34 Specimen Type ART ART ART Sample Site Art Line Art Line Art Line pH 7.39 7.37 7.39 Bicarbonate Actual 21.4 L 22.0 23.1 Total CO2 23 23 24 Base Excess -4 L -3 L -2 O2 Saturation 82 L 100 H 92 L O2 % 100 100 60 ABG pCO2 35.4 38.3 38.5 ABG pO2 47 L 233 H 63 L Nelson Test Respiration Rate 14 14 14 O2 Delivery Device Adult Vent ET Tube Vent Mode AC/PC AC/PC AC Tidal Volume 450 POC PEEP 15 15 8 POC Pressure Suppt 25 25 07/21/21 06:11 Specimen Type ART Sample Site Art Line pH 7.46 H Bicarbonate Actual 24.1 Total CO2 25 Base Excess 0 O2 Saturation 92 L O2 % 45 ABG pCO2 33.5 L ABG pO2 60 L Nelson Test N/A Respiration Rate O2 Delivery Device Adult Vent Vent Mode Tidal Volume POC PEEP 5 POC Pressure Suppt 5 Radiography Diagnostic Testing: Radiology Impression Chest X-Ray 07/20/21 07:58 IMPRESSION: 1. Nasogastric tube with the tip below the diaphragm. 2. Right internal jugular deep venous line with tip of the catheter overlying the superior vena cava no pneumothorax. 3. Poor inspiration with bibasilar atelectasis. Electronically Signed: Brandyn Lou MD at 8:28 EST Tel , Service support , Chest X-Ray 07/20/21 10:00 IMPRESSION: 1. Interval placement of endotracheal tube with the tip above the cameron. 2. Nasogastric tube and right internal jugular deep venous line which are unchanged. 3. Worsening bibasilar atelectasis, pneumonia, pulmonary edema, or ARDS. Electronically Signed: Brandyn Lou MD at 10:28 EST Tel , Service support , Rhythm Strip Rhythm Strip: Sinus Tach Rate: 109 Ectopy: None Physical Exam Const oriented x3 and no apparent distress Constitutional Narrative: NG in place Resp normal respiratory effort Cardio Rate: tachycardic GI GI Narrative: Abdomen: Soft, mild distension, tender near incision's dressed clean dry and intact, no peritoneal signs Assessment & Plan Assessment/Plan (1) S/P small bowel resection: (2) Acute respiratory failure with hypoxia: (3) Aspiration pneumonia due to gastric secretions: (4) Acidosis, lactic: PLAN: Continue n.p.o./IV fluids?NG until bowel function Wean O2 as tolerated, continue IV Zosyn for aspiration pneumonia Nancy Hall M.D. Pager: [phone] [facility] [address] [place] [address], [facility], [address] [place] [address] Office: [phone]
--- NOTE | 2021-07-21 07:28 | PN.CC_ITS ---
Assessment & Plan Assessment/Plan (1) SBO (small bowel obstruction): (2) Pneumatosis of intestines: (3) Aspiration pneumonia due to gastric secretions: (4) Acute respiratory failure with hypoxia: PLAN: RECOMMENDATIONS: 1. Okay to extubate patient to nasal cannula. Wean FiO2 as tolerated 2. Continue IV fluids for now 3. Hold baseline antihypertensives for another 24 hours 4. Discontinue sedation. Pain control per surgery 5. Anticipate 7 to 10 days of antibiotics 6. Tylenol as needed for pain/fever 7. Recheck electrolytes daily with supplementation as necessary IMPRESSIONS: 1. Acute hypoxic respiratory failure secondary to aspiration pneumonia Chest x-ray shows endotracheal tube in appropriate position. Patient does have worsening infiltrates bilaterally. Patient has received significant volume resuscitation in the setting of pancreatitis. We will continue to monitor blood pressures. If patient continues to be stable from a hemodynamic standpoint, could consider diuretics. ABG showed adequate oxygenation and ventilation during SBT. Patient will be extubated. Anticipate 7 to 10 days of IV antibi otics for aspiration and peritonitis related to problem #3. Defer to surgery. 2. Acute kidney injury Improving. Patient with significant elevation in creatinine with d ecreased urine output on presentation. Patient did have hypoxia with hypotension for quite some time. Continue to support hemodynamics. Repeat electrolytes with repletion if necessary. No indication for renal replacement therapy previously on laboratory data. 3. Distributive shock secondary to acute pancreatitis secondary to perforated bowel Patient with elevated lactate, lipase, white blood cell count and glucose. Given age, this gives a Farzad criteria of 3 on admission. Currently, this would account for his 15% predicted mortality. Await labs tomorrow to calculate full Ranier score. Continue to follow blood sugars closely. These could be highly labile 4. Septic shock secondary to perforated bowel Patient was on pressors for a short period of time. Patient does have pneumatosis indicating probable perforation. Patient did not have a lot of blood loss during the surgery. We will continue pressors if necessary. If not necessary, we will hold on IV fluids given patient's respiratory failure. 5. Use of tadalafil/GERD/obesity/poor history/hyperlipidemia/hypertension Complicates care, management, recovery and prognosis. Avoid nitrates. Hold statins for now given high risk for hepatitis. Hold hypertensive medications given problems 3 and 4. TIME: 32 minutes of critical care time spent addressing patient's acute hypoxic respiratory failure, acute kidney injury, distributive shock, review of all data and collaboration with care team (6:15 AM to 7:15 AM) Subjective Subjective Patient did okay overnight. Patient did have persistent fever and was hypotensive through the afternoon yesterday. However, Levophed came off at approximately 3 AM. Patient was able to have a spontaneous breathing trial this morning and was successfully extubated. Nursing did report patient's low intermittent suction was not working correctly and he subsequently had about a liter of fluid removed from his belly this morning. Objective Data Objective Data Vital Signs: Vital Signs Temp Pulse Resp BP Pulse Ox 38.8 C H 100 26 H 110/49 L 94 07/21/21 03:00 07/21/21 04:00 07/21/21 05:00 07/21/21 03:00 07/21/21 03:20 Oxygen Flow Rate (L/min) 15 Oxygen Delivery Method Mechanical Ventilator Weight: 110.1 kg Body Mass Index (BMI) 36.6 Intake & Output: Intake and Output for Last 24 Hours 07/19/21 07/20/21 07/21/21 23:59 23:59 23:59 Intake Total 3695.83 / 3710.68 1143.05 / 1143.05 Output Total 2245 / 2445 950 / 950 Balance 1450.83 / 1265.68 193.05 / 193.05 Lab / Micro Data Result Diagrams: 07/21/21 04:40 07/21/21 04:40 Labs: Laboratory Results - last 24 hr 07/20/21 04:59: Diff Path Review Reviewed 07/20/21 04:59: Magnesium 2.4 07/20/21 06:07: Crossmatch See Detail 07/20/21 07:35: Urine Color Yellow, Urine Clarity Clear, Urine pH 5.0, Ur Specific [place] 1.020, Urine Protein 30 H, Urine Glucose (UA) Normal, Urine Ketones Negative, Urine Occult Blood 150 H, Urine Nitrite Negative, Urine Bilirubin Negative, Urine Urobilinogen Normal, Ur Leukocyte Esterase Negative, Urine RBC 0 SEEN, Urine WBC 0 SEEN, Ur Squamous Epith Cells 0-5 SEEN, Urine Bacteria 0 SEEN, Urine Mucus 0 SEEN 07/20/21 10:55: WBC 2.5 L, RBC 4.68, Hgb 13.1, Hct 39.3 L, MCV 84.0, MCH 28.0, MCHC 33.3, RDW Std Deviation 44.0 H, RDW Coeff of Mike 14.4, Plt Count 229, MPV 11.0, Immature Gran % (Auto) 0.000, Neut % (Auto) 68.9, Lymph % (Auto) 27.6, [place] % (Auto) 3.1, Eos % (Auto) 0.0, Baso % (Auto) 0.4, Absolute Neuts (auto) 1.8 L, Absolute Lymphs (auto) 0.70 L, Nucleated RBC % 0, Differential Comment 07/20/21 10:55: Sodium 139, Potassium 3.9, Chloride 104, Carbon Dioxide 27.0, Anion Gap 8, BUN 54 H, Creatinine 2.24 H, Estim Creat Clear Calc 29.69, Est GFR (MDRD) Af Amer 37 L, Est GFR (MDRD) Non-Af 31 L, BUN/Creatinine Ratio 24.1 H, Glucose 131 H, Calcium 7.6 L, Total Bilirubin 1.00, AST 63 H, ALT 36, Alkaline Phosphatase 51, Lactate Dehydrogenase 249 H, Total Protein 5.6 L, Albumin 2.6 L, Globulin 3.0, Albumin/Globulin Ratio 0.9 07/20/21 10:55: Lactic Acid 3.7 H* 07/20/21 22:02: Lactic Acid 3.4 H* 07/21/21 04:40: WBC 5.5, RBC 4.08 L, Hgb 11.3 L, Hct 34.3 L, MCV 84.1, MCH 27.7, MCHC 32.9, RDW Std Deviation 44.4 H, RDW Coeff of Mike 14.5, Plt Count 106 L, MPV 10.1, Immature Gran % (Auto) 0.700, Neut % (Auto) 82.0 H, Lymph % (Auto) 10.2 L, [place] % (Auto) 6.6, Eos % (Auto) 0.0, Baso % (Auto) 0.5, Absolute Neuts (auto) 4.5, Absolute Lymphs (auto) 0.56 L, Nucleated RBC % 0, Differential Comment SCANNED 07/21/21 04:40: Sodium 137, Potassium 4.2, Chloride 103, Carbon Dioxide 27.0, Anion Gap 7, BUN 55 H, Creatinine 1.74 H, Estim Creat Clear Calc 38.22, Est GFR (MDRD) Af Amer 50 L, Est GFR (MDRD) Non-Af 41 L, BUN/Creatinine Ratio 31.6 H, Glucose 117 H, Calcium 7.7 L, Phosphorus 2.2 L, Magnesium 2.2 Micro: Microbiology 07/20/21 06:09 Interface Orders SARS-CoV-2 Antigen (Rapid) - Final 07/20/21 05:21 Stool Stool Occult Blood (PEDRO) - Final Occult Blood Positive ABG Data ABG results: ABG 07/20/21 07/20/21 07/20/21 09:20 09:43 11:34 Specimen Type ART ART ART Sample Site Art Line Art Line Art Line pH 7.39 7.37 7.39 Bicarbonate Actual 21.4 L 22.0 23.1 Total CO2 23 23 24 Base Excess -4 L -3 L -2 O2 Saturation 82 L 100 H 92 L O2 % 100 100 60 ABG pCO2 35.4 38.3 38.5 ABG pO2 47 L 233 H 63 L Nelson Test Respiration Rate 14 14 14 O2 Delivery Device Adult Vent ET Tube Vent Mode AC/PC AC/PC AC Tidal Volume 450 POC PEEP 15 15 8 POC Pressure Suppt 25 25 07/21/21 06:11 Specimen Type ART Sample Site Art Line pH 7.46 H Bicarbonate Actual 24.1 Total CO2 25 Base Excess 0 O2 Saturation 92 L O2 % 45 ABG pCO2 33.5 L ABG pO2 60 L Nelson Test N/A Respiration Rate O2 Delivery Device Adult Vent Vent Mode Tidal Volume POC PEEP 5 POC Pressure Suppt 5 Radiography Diagnostic Testing: Radiology Impression Chest X-Ray 07/20/21 07:58 IMPRESSION: 1. Nasogastric tube with the tip below the diaphragm. 2. Right internal jugular deep venous line with tip of the catheter overlying the superior vena cava no pneumothorax. 3. Poor inspiration with bibasilar atelectasis. Electronically Signed: Brandyn Lou MD at 8:28 EST Tel , Service support , Chest X-Ray 07/20/21 10:00 IMPRESSION: 1. Interval placement of endotracheal tube with the tip above the cameron. 2. Nasogastric tube and right internal jugular deep venous line which are unchanged. 3. Worsening bibasilar atelectasis, pneumonia, pulmonary edema, or ARDS. Electronically Signed: Brandyn Lou MD at 10:28 EST Tel , Service support , Rhythm Strip Rhythm Strip: Sinus Tach Rate: 109 Ectopy: None Physical Exam Const no apparent distress Constitutional Narrative: Slightly diaphoretic and febrile during spontaneous b reathing trial General Appearance: cooperative, comfortable, intubated and patient mechanically ventilated Nutritional Appearance: obese HEENT normocephalic and head/scalp atraumatic Eyes conjunctivae normal and no scleral icterus Chest inspection of chest normal Chest: symmetrical chest wall rise; Negative for crepitus Resp Resp Narrative: Good vent synchrony. Effort and Inspection: mechanically ventilated; Negative for prolonged expiratory phase Auscultation: rales bilateral and diminished lung sounds; Negative for rhonchi or wheezes Cardio regular rhythm, S1 normal heart sound, S2 normal heart sound, no murmurs, no rub and no gallops Rate: tachycardic GI Inspection: abdominal distention Palpation: Negative for tender or guarding Extremity no clubbing, cyanosis or edema Skin Skin Narrative: Surgical sites are clean, dry and intact Neuro CN's II-XII intact bilaterally, moves all extremities and no focal motor deficits Psych mental status grossly normal Charges/Coding Procedures Hospitalists Procedures: [id number] Critial Care 1st Hr
[2021-07-21] MEDS: CHLORHEXIDINE GLUC 2% CLOTH 1 EACH TOWELETTE TOPICAL (10:31)
[2021-07-21] MEDS: Heparin Injection (Vial) 5,000 UNIT/ML VIAL 5000 UNIT SC ×2 (10:47→20:24)
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
[2021-07-22] VITALS (37 sets, daily range): BP systolic 125–173; BP diastolic 53–108; PULSE 73–136; RESP 20–32; TEMP 37.6–38.7; O2SAT 88–100
--- NOTE | 2021-07-22 00:10 | EKG12_ITS ---
Test Reason : Blood Pressure : / mmHG Vent. Rate : 125 BPM Atrial Rate : 131 BPM P-R Int : 000 ms QRS Dur : 088 ms QT Int : 364 ms P-R-T Axes : 000 042 201 degrees QTc Int : 525 ms Atrial fibrillation with rapid ventricular response Low voltage QRS ST & T wave abnormality, consider inferior ischemia ST & T wave abnormality, consider anterolateral ischemia Abnormal ECG Confirmed by JANELLE WEBER, MICHA ([id number]), editorial project manager YARIEL HARDEN ([id number]) on 07/27/2021 11:07:15 AM Referred By: Confirmed By:MICHA LUIS MD
[2021-07-22] MEDS: Acetaminophen 650 MG/20 ML UDC GT ×2 (02:05→09:16)
[2021-07-22] MEDS: 0.9% Normal Saline 1,000 ML 75 ML IV (03:04)
[2021-07-22 04:57] LABS: Absolute Lymphocyte Count 0.51 X10^3/uL (0.83-4.51); Absolute Neutrophil Count 3.6 X10^3/uL (2.0-7.7); Basophil# 0.02 X10^3/uL; Basophil% 0.4 % (0-1); Eosinophil# 0.01 X10^3/uL; Eosinophils% 0.2 % (0-5); Hematocrit 32.1 % (40-54); Hemoglobin 10.4 g/dL (13.0-16.5); Lymphocyte # 0.51 X10^3/ul (0.83-4.51); Lymphocyte % 11.4 % (19-41); Mean Corp Hgb Conc 32.4 g/dL (32-36); Mean Corpuscular Volume 86.5 fL (80-94); Mean Platelet Vol. 11.1 fl (6.2-12.0); Monocyte# 0.36 X10^3/uL; NRBC Flagged by Analyzer 0 % (0-5); Neutrophil # 3.58 X10^3/uL (2.7-7.7); Neutrophil % 79.8 % (47-70); POSITIVE DIFFERENTIAL YES; POSITIVE MORPHOLOGY YES; Platelet Count 109 K/mm3 (150-450); RBC Distribution Width CV 14.5 % (11.6-14.6); RBC Distribution Width SD 46.4 fl (35.1-43.9); Red Blood Count 3.71 M/mm3 (4.6-6.2); White Blood Count 4.5 K/mm3 (4.4-11.0)
[2021-07-22 04:58] LABS: Differential Indicated SCAN CRITERIA MET
[2021-07-22 05:11] LABS: Differential Comment SCANNED
[2021-07-22 05:12] LABS: Anion Gap 5 (5-15); BUN 33 mg/dL (7-18); BUN/Creat Ratio 31.4 RATIO (10-20); Calcium,Total 8.1 mg/dL (8.5-10.1); Chloride 108 mmol/L (98-107); Creatinine, Serum 1.05 mg/dL (0.70-1.30); EST Glomerular Filtration Rate 74 mL/min (>60); Est Glom Filt Rate - Afr Amer 90 mL/min (>60); Estimated Creatinine Clearance 63.33 ml/min; Glucose 128 mg/dL (74-106); Potassium 3.5 mmol/L (3.5-5.1); Sodium Level 143 mmol/L (136-145)
--- NOTE | 2021-07-22 07:24 | PCM.PN.INT ---
Assessment & Plan Assessment/Plan (1) SBO (small bowel obstruction): (2) Pneumatosis of intestines: (3) Aspiration pneumonia due to gastric secretions: (4) Acute respiratory failure with hypoxia: PLAN: RECOMMENDATIONS: 1. Continue nasal cannula. Wean FiO2 as tolerated 2. Discontinue IV fluids. Challenge with Lasix. 3. Antihypertensives per cardiology 4. Discontinue sedation. Pain control per surgery 5. Anticipate 7 to 10 days of antibiotics 6. Tylenol as needed for pain/fever 7. Recheck electrolytes daily with supplementation as necessary IMPRESSIONS: 1. Acute hypoxic respiratory failure secondary to aspiration pneumonia Chest x-ray shows endotracheal tube in appropriate position. Patient does have worsening infiltrates bilaterally. Patient has received significant volume resuscitation in the setting of pancreatitis. We will continue to monitor blood pressures. If patient continues to be stable from a hemodynamic standpoint, could consider diuretics. Anticipate 7 to 10 days of IV antibiotics for aspiration and peritonitis related to problem #3. Defer to surgery. We will challenge with Lasix today 2. Acute kidney injury Improving. Patient with significant elevation in creatinine with decreased urine output on presentation. Patient did have hypoxia with hypotension for quite some time. Continue to support hemodynamics. Repeat electrolytes with repletion if necessary. No indication for renal replacement therapy previously on laboratory data. 3. Distributive shock secondary to acute pancreatitis secondary to perforated bowel Improving. Patient with elevated lactate, lipase, white blood cell count and glucose. Given age, this gives a Farzad criteria of 3 on admission. Currently, this would account for his 15% predicted mortality. Await labs tomorrow to calculate full [place] score. Continue to follow blood sugars closely. These could be highly labile 4. Septic shock secondary to perforated bowel Resolved. Patient was on pressors for a short period of time. Patient does have pneumatosis indicating probable perforation. Patient did not have a lot of blood loss during the surgery. We will continue pressors if necessary. If not necessary, we will hold on IV fluids given patient's respiratory failure. 5. Use of tadalafil/GERD/obesity/poor history/hyperlipidemia/hypertension Complicates care, management, recovery and prognosis. Avoid nitrates. Hold statins for now given high risk for hepatitis. Hold hypertensive medications given problems 3 and 4. 6. New onset atrial fibrillation Unclear if patient has had this before as he does report some palpitations. Patient is rate controlled on Cardizem, but likely should be anticoagulated. Cardiology will be consulted. Subjective Subjective Patient did okay from a respiratory standpoint overnight. However, patient did develop A. fib with RVR with heart rates into the 140s. Patient was placed on a Cardizem drip and rate has been controlled. Patient has persisted in A. fib. Patient states that he does suffer from anxiety and has had palpitations many times in the past, but is never been diagnosed with A. fib. Patient does not see a certified phlebotomist at baseline. Patient continues to report dry mouth, but has not had any flatus. Objective Data Objective Data Vital Signs: Vital Signs Temp Pulse Resp BP Pulse Ox 37.9 C H 104 H 20 H 132/67 H 88 07/22/21 07:00 07/22/21 07:00 07/22/21 07:00 07/22/21 07:00 07/22/21 07:00 Oxygen Flow Rate (L/min) 6 Oxygen Delivery Method Nasal Cannula Weight: 108.7 kg Body Mass Index (BMI) 36.6 Intake & Output: Intake and Output for Last 24 Hours 07/20/21 07/21/21 07/22/21 23:59 23:59 23:59 Intake Total 3695.83 / 3710.68 2292.43 / 2292.43 1123.75 / 1123.75 Output Total 2245 / 2445 3975 / 3975 645 / 645 Balance 1450.83 / 1265.68 -1682.57 / -1682.57 478.75 / 478.75 Lab / Micro Data Result Diagrams: 07/22/21 04:30 07/22/21 04:30 Labs: Laboratory Results - last 24 hr 07/22/21 04:30: WBC 4.5, RBC 3.71 L, Hgb 10.4 L, Hct 32.1 L, MCV 86.5, MCH 28.0, MCHC 32.4, RDW Std Deviation 46.4 H, RDW Coeff of Mike 14.5, Plt Count 109 L, MPV 11.1, Immature Gran % (Auto) 0.200, Neut % (Auto) 79.8 H, Lymph % (Auto) 11.4 L, [place] % (Auto) 8.0, Eos % (Auto) 0.2, Baso % (Auto) 0.4, Absolute Neuts (auto) 3.6, Absolute Lymphs (auto) 0.51 L, Nucleated RBC % 0, Differential Comment SCANNED 07/22/21 04:30: Sodium 143, Potassium 3.5, Chloride 108 H, Carbon Dioxide 30.0, Anion Gap 5, BUN 33 H, Creatinine 1.05, Estim Creat Clear Calc 63.33, Est GFR (MDRD) Af Amer 90, Est GFR (MDRD) Non-Af 74, BUN/Creatinine Ratio 31.4 H, Glucose 128 H, Calcium 8.1 L Micro: Microbiology 07/20/21 06:09 Interface Orders SARS-CoV-2 Antigen (Rapid) - Final 07/20/21 05:21 Stool Stool Occult Blood (PEDRO) - Final Occult Blood Positive Rhythm Strip Rhythm Strip: Sinus Tach Rate: 109 Ectopy: None Physical Exam Const no apparent distress Constitutional Narrative: Slightly diaphoretic and febrile during spontaneous breathing trial General Appearance: cooperative, comfortable, intubated and patient mechanically ventilated Nutritional Appearance: obese HEENT normocephalic and head/scalp atraumatic Eyes conjunctivae normal and no scleral icterus Chest inspection of chest normal Chest: symmetrical chest wall rise; Negative for crepitus Resp Resp Narrative: Good vent synchrony. Effort and Inspection: mechanically ventilated; Negative for prolonged expiratory phase Auscultation: rales bilateral and diminished lung sounds; Negative for rhonchi or wheezes Cardio S1 normal heart sound, S2 normal heart sound, no murmurs, no rub and no gallops Cardio Narrative: A. fib noted on telemetry Rate: tachycardic Rhythm: abnormal rhythm irregularly irregular GI Inspection: abdominal distention Palpation: Negative for tender or guarding Extremity no clubbing, cyanosis or edema Skin Skin Narrative: Surgical sites are clean, dry and intact Neuro CN's II-XII intact bilaterally, moves all extremities and no focal motor deficits Psych mental status grossly normal Charges/Coding Visit Charges Inpatient E&M: 98605 Subs Hosp L3
--- NOTE | 2021-07-22 07:33 | PCM.PN.SRG ---
Subjective Subjective Patient's not passing any flatus, NG put out 2.2 L yesterday, patient is in rate controlled A. fib cardiology consulted Objective Data Objective Data Vital Signs: Vital Signs Temp Pulse Resp BP Pulse Ox 100.2 F H 104 H 20 H 132/67 H 88 07/22/21 07:00 07/22/21 07:00 07/22/21 07:00 07/22/21 07:00 07/22/21 07:00 Oxygen Flow Rate (L/min) 6 Oxygen Delivery Method Nasal Cannula Weight: 239 lb 10.279 oz Body Mass Index (BMI) 36.6 Intake & Output: Intake and Output for Last 24 Hours 07/20/21 07/21/21 07/22/21 23:59 23:59 23:59 Intake Total 3695.83 / 3710.68 2292.43 / 2292.43 1123.75 / 1123.75 Output Total 2245 / 2445 3975 / 3975 645 / 645 Balance 1450.83 / 1265.68 -1682.57 / -1682.57 478.75 / 478.75 Lab / Micro Data Result Diagrams: 07/22/21 04:30 07/22/21 04:30 Labs: Laboratory Results - last 24 hr 07/22/21 04:30: WBC 4.5, RBC 3.71 L, Hgb 10.4 L, Hct 32.1 L, MCV 86.5, MCH 28.0, MCHC 32.4, RDW Std Deviation 46.4 H, RDW Coeff of Mike 14.5, Plt Count 109 L, MPV 11.1, Immature Gran % (Auto) 0.200, Neut % (Auto) 79.8 H, Lymph % (Auto) 11.4 L, [place] % (Auto) 8.0, Eos % (Auto) 0.2, Baso % (Auto) 0.4, Absolute Neuts (auto) 3.6, Absolute Lymphs (auto) 0.51 L, Nucleated RBC % 0, Differential Comment SCANNED 07/22/21 04:30: Sodium 143, Potassium 3.5, Chloride 108 H, Carbon Dioxide 30.0, Anion Gap 5, BUN 33 H, Creatinine 1.05, Estim Creat Clear Calc 63.33, Est GFR (MDRD) Af Amer 90, Est GFR (MDRD) Non-Af 74, BUN/Creatinine Ratio 31.4 H, Glucose 128 H, Calcium 8.1 L Micro: Microbiology 07/20/21 06:09 Interface Orders SARS-CoV-2 Antigen (Rapid) - Final 07/20/21 05:21 Stool Stool Occult Blood (PEDRO) - Final Occult Blood Positive Rhythm Strip Rhythm Strip: Sinus Tach Rate: 109 Ectopy: None Physical Exam Const oriented x3 and no apparent distress Constitutional Narrative: NG in place Resp normal respiratory effort Cardio Rate: tachycardic GI GI Narrative: Abdomen: Soft, mild distension, tender near incision's dressed clean dry and intact, no peritoneal signs Assessment & Plan Assessment/Plan (1) S/P small bowel resection: (2) Acute respiratory failure with hypoxia: (3) Aspiration pneumonia due to gastric secretions: (4) Acidosis, lactic: PLAN: Continue n.p.o./IV fluids?NG until bowel function Wean O2 as tolerated, continue IV Zosyn for aspiration pneumonia Appreciate cardiology's assistance with A. fib question whether its new onset or not. Dr. Fagan will be covering starting tomorrow Nancy Hall M.D. Pager: [phone] [facility] [address] [place] [address], [facility], [address] [place] [address] Office: [phone]
[2021-07-22] MEDS: Furosemide 20 MG/2 ML VIAL IV (07:55)
[2021-07-22] MEDS: Heparin Injection (Vial) 5,000 UNIT/ML VIAL 5000 UNIT SC ×2 (09:16→21:47)
[2021-07-22] MEDS: CHLORHEXIDINE GLUC 2% CLOTH 1 EACH TOWELETTE TOPICAL (09:17)
--- NOTE | 2021-07-22 11:12 | ECHOCS_ITS ---
Reason For Study: AFIB Procedure This was a 2D Doppler, Color Flow transthoracic echocardiogram. The study was technically difficult. Contrast injection was performed. Exam performed portable in ICU/CCU. Left Ventricle Mildly dilated left ventricle. The estimated ejection fraction is 35-40 %. Right Ventricle Mildly dilated right ventricle. Atria The left atrium is moderately enlarged. The right atrium is mildly enlarged. Mitral Valve The mitral valve is structurally normal. No prolapse or stenosis seen. Mild-Moderate (1-2+) mitral valve insufficiency. Tricuspid Valve Normal tricuspid valve. Mild to moderate (1-2+) tricuspid valve insufficiency. Aortic Valve Normal aortic valve. Mild (1+) aortic valve insufficiency. Pulmonic Valve The pulmonic valve is not well visualized. Great Vessels Normal aortic root. Pericardium/Pleural No pericardial effusion. Medication Diluted definity 2.5ml given slow IV push to enhance endocardial definition. MMode/2D Measurements & Calculations LVIDd: 3.7 cm IVSd: 1.4 cm Ao root diam: 3.3 cm LVIDs: 2.5 cm LVPWd: 1.4 cm RVDd: 4.2 cm FS: 33.2 % LAV(MOD-bp): 83.0 ml LVAd ap4: 28.5 cm2 LVAd ap2: 25.9 cm2 LAV(MOD-bp) Indexed: 37.6 ml/m2 LVLd ap4: 7.3 cm LVLd ap2: 7.6 cm LAV(MOD-sp2): 83.3 ml EDV(MOD-sp4): 90.1 ml EDV(MOD-sp2): 71.8 ml LAV(MOD-sp4): 82.6 ml EDV(sp4-el): 94.1 ml EDV(sp2-el): 74.6 ml LVAs ap4: 22.2 cm2 LVAs ap2: 18.5 cm2 LVLs ap4: 7.2 cm LVLs ap2: 6.7 cm ESV(MOD-sp4): 57.2 ml ESV(MOD-sp2): 41.4 ml ESV(sp4-el): 58.0 ml ESV(sp2-el): 43.5 ml EF(MOD-sp4): 36.5 % EF(MOD-sp2): 42.3 % EF(sp4-el): 38.4 % SV(MOD-sp4): 32.9 ml SV(MOD-sp2): 30.3 ml SV(sp4-el): 36.2 ml LA A4 area: 25.6 cm2 LA dimension(2D): 4.9 cm RA A4 area: 18.3 cm2 Doppler Measurements & Calculations Ao V2 max: 209.4 cm/sec PA V2 max: 175.0 cm/sec PI end-d ramon: 129.1 cm/sec Ao max P.7 mmHg Ao V2 mean: 161.6 cm/sec Ao mean P.3 mmHg Ao V2 VTI: 35.2 cm TR max ramon: 354.8 cm/sec TR max P.4 mmHg ECHO/Echo Complete W/ Contrast Interpretation Summary The estimated ejection fraction is 35-40 %. Moderate LVH Mild -moderate MR Mld-moderate TR Mild AI Moderate Pulmonary Hypertension RVSP 55 mmhg Ordering Physician: Roberta Bailey Referring Physician: TOMI KAUR Performed By: Jojo Howe, ALECIA, RVT
--- NOTE | 2021-07-22 11:19 | PCM.CONS.C ---
Documented by User: Roberta WALSH PA 07/22/21 11:53 Assessment & Plan Assessment/Plan (1) Atrial fibrillation with RVR: (2) Hypertension: (3) Acute respiratory failure with hypoxia: (4) Pneumatosis of intestines: PLAN: Suspect that Afib is likely related to his septic shock will add oral metoprolol will continue with IV cardizem- may consider switching to oral will obtain an echo to evaluate LV function ideally he should be anticoagulated, his CHADVASC2 is 1, however with is recent surgery will hold off for now in the future on an OP basis may consider obtaining a NST to evaluate for ischemia.. HPI Consult Data Date of Consult: 07/22/21 HPI Narrative HPI Narrative: BARRERA HENDRICKS, is a 71 M who cardiology was asked to consult on for new onset of Afib with RVR. Pt was initially 07/19/2021 epigastric pain nausea vomiting. He was given Zofran and morphine in addition to IV fluids. He did feel better. Labs were normal. He was discharged home. He then presented back 07/20/2021 with worsening abdominal pain, vomiting and abdominal distention. Patient was admitted for small bowel obstruction with pneumonitis, acute respiratory failure with hypoxia, aspiration pneumonia due to gastric secretions, septic shock due to perforated bowel. We were consulted today for concerns over atrial fibrillation that was noted on telemetry. He was on IV Cardizem for rate control. He is not anticoagulated due to his recent surgery. Patient does have a cardiac history of hypertension. He is not aware of any other arrhythmia issues. He cannot recall any recent cardiac testing that he had done. [facility] Medical History (Updated 07/22/21 @ 11:45 by Roberta WALSH PA) Atrial fibrillation with RVR Hypertension Home Medications Cholecalciferol (Vitamin D3) [Vitamin D3] 4,000 unit PO DAILY 12/10/15 [History Last Taken Unknown] L-Theanine 100 mg PO/SL DAILY 12/10/15 [History Last Taken Unknown] ezetimibe 10 mg PO DAILY 12/10/15 [History Last Taken Unknown] folic acid 1 mg PO DAILY@0800 12/10/15 [History Last Taken Unknown] multivitamin [Daily Multiple] 1 ea PO DAILY 12/10/15 [History Last Taken 12/16/15] atenolol 100 mg PO DAILY 07/19/21 [History Last Taken Unknown] coQ10 (ubiquinol) 200 mg PO DAILY 07/19/21 [History Last Taken Unknown] famotidine [Pepcid] 20 mg PO DAILY PRN #14 tab 07/19/21 [Rx Last Taken Unknown] losartan 100 mg PO DAILY 07/19/21 [History Last Taken Unknown] magnesium 100 mg PO TID 07/19/21 [History Last Taken Unknown] ondansetron HCl [Zofran] 4 mg PO Q8H PRN #14 tab 07/19/21 [Rx Last Taken Unknown] sertraline 50 mg PO DAILY 07/19/21 [History Last Taken Unknown] spironolactone 50 mg PO DAILY 07/19/21 [History Last Taken Unknown] tadalafil 10 mg PO DAILY 07/19/21 [History Last Taken Unknown] Allergy/AdvReac Type Severity Reaction Status Date / Time atorvastatin calcium Allergy Other Verified 07/19/21 09:03 [From Lipitor] fenofibrate nanocrystallized Allergy Other Verified 07/19/21 09:03 [From Tricor] fenofibrate,micronized Allergy Other Verified 07/19/21 09:03 [From Tricor] hydrochlorothiazide Allergy Other Verified 07/19/21 09:03 latex Allergy Hives Verified 07/19/21 09:03 Surgical History (Updated 07/20/21 @ 18:[address] Nancy Hall MD) History of cholecystectomy History of parathyroidectomy History of prostatectomy History of tonsillectomy Social History Smoking Status: Former smoker ROS ROS Narrative Patient does not have any chest pain. He is not aware of any palpitations prior to his hospital stay. Prior to his hospital stay has not had any worsening shortness of breath. He has not had any lower extremity edema prior to his hospitalization. Physical Exam Const alert, oriented x3 and no apparent distress HEENT normocephalic, head/scalp atraumatic, hearing grossly normal bilaterally, external ears normal and TM's normal bilaterally Nose: other Other Details: ng tube Eyes PERRL, EOMs intact bilaterally, conjunctivae normal and no scleral icterus Resp normal respiratory effort, no use of accessory muscles and clear to auscultation bilaterally Cardio Jugular Venous Distention: Negative for JVD Rate: tachycardic Rhythm: abnormal rhythm irregularly irregular Heart Sounds: S1 normal and S2 normal; Negative for click, gallop, murmur or rub Peripheral Pulses: pulses 2+ throughout GI Inspection: abdominal distention Neuro oriented x3, CN's II-XII intact bilaterally, moves all extremities and no focal motor deficits Risk Stratification Risk Stratification Applicable: Yes Age >/= 65: Yes >/= 3 CAD Risk Factors (HTN, HLD, DM, family hx of CAD, or current smoker): No Aspirin Use in the Past 7 Days: No Severe Angina (>/= episodes in 24 hours): No EKG ST Changes >/= 0.5mm: No Positive Cardiac Marker: No ISABELLA Risk Stratification Score: 1 ISABELLA % Risk: 5% Risk Charges/Coding Visit Charges Office Visits / Consults: 93186 OP Consult L4 Objective Data Vital Signs: Vital Signs Temp Pulse Resp BP Pulse Ox 101.7 F H 109 H 24 H 170/87 H 91 07/22/21 10:00 07/22/21 10:00 07/22/21 10:00 07/22/21 10:00 07/22/21 10:41 Oxygen Flow Rate (L/min) 7 Oxygen Delivery Method Nasal Cannula Weight: 239 lb 10.279 oz Body Mass Index (BMI) 36.6 Intake & Output: Intake and Output for Last 24 Hours 07/20/21 07/21/21 07/22/21 23:59 23:59 23:59 Intake Total 3695.83 / 3710.68 2292.43 / 2292.43 1755.00 / 1755.00 Output Total 2245 / 2445 3975 / 3975 1095 / 1095 Balance 1450.83 / 1265.68 -1682.57 / -1682.57 660.00 / 660.00 Lab / Micro Data Result Diagrams: 07/22/21 04:30 07/22/21 04:30 Labs: Laboratory Results - last 24 hr 07/22/21 04:30: WBC 4.5, RBC 3.71 L, Hgb 10.4 L, Hct 32.1 L, MCV 86.5, MCH 28.0, MCHC 32.4, RDW Std Deviation 46.4 H, RDW Coeff of Mike 14.5, Plt Count 109 L, MPV 11.1, Immature Gran % (Auto) 0.200, Neut % (Auto) 79.8 H, Lymph % (Auto) 11.4 L, [place] % (Auto) 8.0, Eos % (Auto) 0.2, Baso % (Auto) 0.4, Absolute Neuts (auto) 3.6, Absolute Lymphs (auto) 0.51 L, Nucleated RBC % 0, Differential Comment SCANNED 07/22/21 04:30: Sodium 143, Potassium 3.5, Chloride 108 H, Carbon Dioxide 30.0, Anion Gap 5, BUN 33 H, Creatinine 1.05, Estim Creat Clear Calc 63.33, Est GFR (MDRD) Af Amer 90, Est GFR (MDRD) Non-Af 74, BUN/Creatinine Ratio 31.4 H, Glucose 128 H, Calcium 8.1 L Micro: Microbiology 07/20/21 06:05 Blood Culture (Wb) - Anticubital Right Blood Culture - Preliminary No growth in 48 hours. 07/20/21 05:58 Blood Culture (Wb) - Anticubital Left Blood Culture - Preliminary No growth in 48 hours. Rhythm Strip Rhythm Strip: Sinus Tach Rate: 109 Ectopy: None Cardiology Labs/Tests 07/22/21 04:30: WBC 4.5, RBC 3.71 L, Hgb 10.4 L, Hct 32.1 L, MCV 86.5, MCH 28.0, MCHC 32.4, Plt Count 109 L, MPV 11.1, Immature Gran % (Auto) 0.200, Neut % (Auto) 79.8 H, Lymph % (Auto) 11.4 L, [place] % (Auto) 8.0, Eos % (Auto) 0.2, Baso % (Auto) 0.4, Absolute Neuts (auto) 3.6, Nucleated RBC % 0 07/22/21 04:30: Sodium 143, Potassium 3.5, Chloride 108 H, Carbon Dioxide 30.0, Anion Gap 5, BUN 33 H, Creatinine 1.05, Est GFR (MDRD) Af Amer 90, Est GFR (MDRD) Non-Af 74, BUN/Creatinine Ratio 31.4 H, Glucose 128 H, Calcium 8.1 L Rhythm:Afib with RVR Documented by User: Dr. Barbara Collazo MD 07/22/21 15:02 Assessment & Plan Assessment/Plan (1) Atrial fibrillation with RVR: (2) Hypertension: (3) Acute respiratory failure with hypoxia: (4) SBO (small bowel obstruction): (5) Aspiration pneumonia due to gastric secretions: PLAN: This patient seen evaluated at bedside in the intensive care unit along with the nursing staff and the midlevel Patient presented with small bowel obstruction underwent surgical treatment with resection Cardiac auscultation requested due to A. fib with RVR. Patient has been following at the [place] facility He denies any prior cardiac history. Cardiac care plan and recommendations; 1. Agree with the midlevel documentation and plan of cardiac care We will continue on rate control using calcium channel tara and beta-tara Patient is a high risk for bleeding and not a candidate for anticoagulation at present time this can be discussed as an outpatient basis. To set up for a Holter monitor and also to evaluate for myocardial ischemia as an outpatient. 2. We will review the echocardiogram and will follow-up clinically. HPI Consult Data Date of Consult: 07/22/21 [facility] Medical History (Updated 07/22/21 @ 11:45 by Roberta WALSH, PA) Atrial fibrillation with RVR Hypertension Home Medications Cholecalciferol (Vitamin D3) [Vitamin D3] 4,000 unit PO DAILY 12/10/15 [History Last Taken Unknown] L-Theanine 100 mg PO/SL DAILY 12/10/15 [History Last Taken Unknown] ezetimibe 10 mg PO DAILY 12/10/15 [History Last Taken Unknown] folic acid 1 mg PO DAILY@0800 12/10/15 [History Last Taken Unknown] multivitamin [Daily Multiple] 1 ea PO DAILY 12/10/15 [History Last Taken 12/16/15] atenolol 100 mg PO DAILY 07/19/21 [History Last Taken Unknown] coQ10 (ubiquinol) 200 mg PO DAILY 07/19/21 [History Last Taken Unknown] famotidine [Pepcid] 20 mg PO DAILY PRN #14 tab 07/19/21 [Rx Last Taken Unknown] losartan 100 mg PO DAILY 07/19/21 [History Last Taken Unknown] magnesium 100 mg PO TID 07/19/21 [History Last Taken Unknown] ondansetron HCl [Zofran] 4 mg PO Q8H PRN #14 tab 07/19/21 [Rx Last Taken Unknown] sertraline 50 mg PO DAILY 07/19/21 [History Last Taken Unknown] spironolactone 50 mg PO DAILY 07/19/21 [History Last Taken Unknown] tadalafil 10 mg PO DAILY 07/19/21 [History Last Taken Unknown] Allergy/AdvReac Type Severity Reaction Status Date / Time atorvastatin calcium Allergy Other Verified 07/19/21 09:03 [From Lipitor] fenofibrate nanocrystallized Allergy Other Verified 07/19/21 09:03 [From Tricor] fenofibrate,micronized Allergy Other Verified 07/19/21 09:03 [From Tricor] hydrochlorothiazide Allergy Other Verified 07/19/21 09:03 latex Allergy Hives Verified 07/19/21 09:03 Surgical History (Updated 07/20/21 @ 18:[address] Nancy Hall MD) History of cholecystectomy History of parathyroidectomy History of prostatectomy History of tonsillectomy Social History Smoking Status: Former smoker Lab / Micro Data Result Diagrams: 07/22/21 04:30 07/22/21 04:30
[2021-07-22] MEDS: Metoprolol Tartrate 25 MG Tablet PO ×2 (12:07→21:48)
--- NOTE | 2021-07-22 13:33 | CASEMGMT ---
SW completed Healthcare Power of Acid Loader papers with patient per his request. Copies were made and given to patient along with originals. A copy of each was also placed in patient's chart. Esthela ARAIZA
--- NOTE | 2021-07-22 21:15 | EKG12_ITS ---
Test Reason : RHYTHM CHANGE Blood Pressure : / mmHG Vent. Rate : 083 BPM Atrial Rate : 083 BPM P-R Int : 180 ms QRS Dur : 084 ms QT Int : 418 ms P-R-T Axes : 044 038 214 degrees QTc Int : 491 ms Normal sinus rhythm Septal infarct , age undetermined ST & T wave abnormality, consider inferior ischemia ST & T wave abnormality, consider anterolateral ischemia Abnormal ECG Confirmed by JANELLE WEBER, MICHA ([id number]), film editor supervisor YARIEL HARDEN ([id number]) on 07/28/2021 1:06:01 PM Referred By: GINNY NÚÑEZ Confirmed By:MICHA LUIS MD
[2021-07-23] VITALS (25 sets, daily range): BP systolic 113–180; BP diastolic 47–134; PULSE 60–87; RESP 16–28; TEMP 36.4–37.7; O2SAT 91–99
[2021-07-23 04:19] LABS: Absolute Neutrophil Count 5.6 X10^3/uL (2.0-7.7); Basophil# 0.03 X10^3/uL; Basophil% 0.4 % (0-1); Eosinophil# 0.04 X10^3/uL; Eosinophils% 0.6 % (0-5); Hematocrit 30.8 % (40-54); Hemoglobin 9.9 g/dL (13.0-16.5); Lymphocyte % 9.8 % (19-41); Mean Corp Hgb Conc 32.1 g/dL (32-36); Mean Corpuscular Hgb 27.5 pg (27.0-32.0); Mean Corpuscular Volume 85.6 fL (80-94); Mean Platelet Vol. 10.6 fl (6.2-12.0); Monocyte# 0.71 X10^3/uL; NRBC Flagged by Analyzer 0.3 % (0-5); Neutrophil # 5.58 X10^3/uL (2.7-7.7); Neutrophil % 78.4 % (47-70); POSITIVE MORPHOLOGY YES; Platelet Count 132 K/mm3 (150-450); RBC Distribution Width CV 14.6 % (11.6-14.6); RBC Distribution Width SD 45.9 fl (35.1-43.9); White Blood Count 7.1 K/mm3 (4.4-11.0)
[2021-07-23 04:24] LABS: Differential Indicated SCAN CRITERIA MET
[2021-07-23 04:33] LABS: Anion Gap 4 (5-15); BUN 40 mg/dL (7-18); BUN/Creat Ratio 39.6 RATIO (10-20); Calcium,Total 8.4 mg/dL (8.5-10.1); Chloride 109 mmol/L (98-107); Creatinine, Serum 1.01 mg/dL (0.70-1.30); EST Glomerular Filtration Rate 78 mL/min (>60); Est Glom Filt Rate - Afr Amer 94 mL/min (>60); Estimated Creatinine Clearance 65.84 ml/min; Glucose 128 mg/dL (74-106); Potassium 3.5 mmol/L (3.5-5.1); Sodium Level 146 mmol/L (136-145)
[2021-07-23 04:38] LABS: Differential Comment SCANNED
[2021-07-23] MEDS: CHLORHEXIDINE GLUC 2% CLOTH 1 EACH TOWELETTE TOPICAL (04:42)
--- NOTE | 2021-07-23 07:38 | PN.CC_ITS ---
Assessment & Plan Assessment/Plan (1) SBO (small bowel obstruction): (2) Pneumatosis of intestines: (3) Aspiration pneumonia due to gastric secretions: (4) Acute respiratory failure with hypoxia: PLAN: RECOMMENDATIONS: 1. Continue nasal cannula. Wean FiO2 as tolerated 2. Possibly challenge with Lasix tomorrow 3. Antihypertensives/rate control per cardiology 4. Increase activity as tolerated 5. Anticipate 7 to 10 days of antibiotics 6. Tylenol as needed for pain/fever 7. Okay to leave the intensive care unit IMPRESSIONS: 1. Acute hypoxic respiratory failure secondary to aspiration pneumonia Chest x-ray shows endotracheal tube in appropriate position. Patient does have worsening infiltrates bilaterally. Patient has received significant volume resuscitation in the setting of pancreatitis. We will continue to monitor blood pressures. If patient continues to be stable from a hemodynamic standpoint, could consider diuretics. Anticipate 7 to 10 days of IV antibiotics for aspiration and peritonitis related to problem #3. Defer to surgery. We will challenge with Lasix tomorrow 2. Acute kidney injury Resolved. Patient with significant elevation in creatinine with decreased urine output on presentation. Patient did have hypoxia with hypotension for quite some time. Continue to support hemodynamics. Repeat electrolytes with repletion if necessary. No indication for renal replacement therapy previously on laboratory data. 3. Distributive shock secondary to acute pancreatitis secondary to perforated bowel Resolved. Patient with elevated lactate, lipase, white blood cell count and glucose. Given age, this gives a Farzad criteria of 3 on admission. Currently, this would account for his 15% predicted mortality. Repeat labs did not increase Farzad score. Continue to follow blood sugars closely. These could be highly labile 4. Septic shock secondary to perforated bowel Resolved. Patient was on pressors for a short period of time. Patient does have pneumatosis indicating probable perforation. Patient did not have a lot of blood loss during the surgery. We will continue pressors if necessary. If not necessary, we will hold on IV fluids given patient's respiratory failure. 5. Use of tadalafil/GERD/obesity/poor history/hyperlipidemia/hypertension Complicates care, management, recovery and prognosis. Avoid nitrates. Hold statins for now given high risk for hepatitis. Hold hypertensive medications given problems 3 and 4. 6. New onset atrial fibrillation Resolved. Unclear if patient has had this before as he does report some palpitations. Patient is rate controlled on Cardizem, but likely should be anticoagulated. Cardiology is following Subjective Subjective Patient did well overnight. Oxygenation status continues to improve. Patient was febrile and has had bowel sounds, but no flatus is reported. Patient did go back into normal sinus rhythm overnight. Patient has had some hypertension. Objective Data Objective Data Vital Signs: Vital Signs Temp Pulse Resp BP Pulse Ox 37.5 C H 76 24 H 166/73 H 97 07/23/21 05:00 07/23/21 07:00 07/23/21 07:00 07/23/21 07:00 07/23/21 07:00 Oxygen Flow Rate (L/min) 3 Oxygen Delivery Method Nasal Cannula Weight: 108.7 kg Body Mass Index (BMI) 36.6 Intake & Output: Intake and Output for Last 24 Hours 07/21/21 07/22/21 07/23/21 23:59 23:59 23:59 Intake Total 2292.43 / 2292.43 2289.42 / 2294.42 90 / 90 Output Total 3975 / 3975 2420 / 2420 300 / 300 Balance -1682.57 / -1682.57 -130.58 / -125.58 -210 / -210 Lab / Micro Data Result Diagrams: 07/23/21 04:15 07/23/21 04:15 Labs: Laboratory Results - last 24 hr 07/23/21 04:15: WBC 7.1, RBC 3.60 L, Hgb 9.9 L, Hct 30.8 L, MCV 85.6, MCH 27.5, MCHC 32.1, RDW Std Deviation 45.9 H, RDW Coeff of Mike 14.6, Plt Count 132 L, MPV 10.6, Immature Gran % (Auto) 0.800, Neut % (Auto) 78.4 H, Lymph % (Auto) 9.8 L, [place] % (Auto) 10.0, Eos % (Auto) 0.6, Baso % (Auto) 0.4, Absolute Neuts (auto) 5.6, Absolute Lymphs (auto) 0.70 L, Nucleated RBC % 0.3, Differential Comment SCANNED 07/23/21 04:15: Sodium 146 H, Potassium 3.5, Chloride 109 H, Carbon Dioxide 33.0 H, Anion Gap 4 L, BUN 40 H, Creatinine 1.01, Estim Creat Clear Calc 65.84, Est GFR (MDRD) Af Amer 94, Est GFR (MDRD) Non-Af 78, BUN/Creatinine Ratio 39.6 H, Glucose 128 H, Calcium 8.4 L Micro: Microbiology 07/20/21 06:05 Blood Culture (Wb) - Anticubital Right Blood Culture - Preliminary No growth in 48 hours. 07/20/21 05:58 Blood Culture (Wb) - Anticubital Left Blood Culture - Preliminary No growth in 48 hours. 07/20/21 06:09 Interface Orders SARS-CoV-2 Antigen (Rapid) - Final 07/20/21 05:21 Stool Stool Occult Blood (PEDRO) - Final Occult Blood Positive Radiography Diagnostic Testing: Radiology Impression Echocardiogram 07/22/21 11:12 Interpretation Summary The estimated ejection fraction is 35-40 %. Moderate LVH Mild -moderate MR Mld-moderate TR Mild AI Moderate Pulmonary Hypertension RVSP 55 mmhg Ordering Physician: Roberta Bailey Referring Physician: TOMI KAUR Performed By: Jojo Howe, ALECIA, RVT Rhythm Strip Rhythm Strip: Sinus Tach Rate: 109 Ectopy: None Physical Exam Const no apparent distress General Appearance: cooperative, comfortable, intubated and patient mechanically ventilated Nutritional Appearance: obese HEENT normocephalic and head/scalp atraumatic Eyes conjunctivae normal and no scleral icterus Chest inspection of chest normal Chest: symmetrical chest wall rise; Negative for crepitus Resp Effort and Inspection: prolonged expiratory phase Auscultation: diminished lung sounds; Negative for rales, rhonchi or wheezes Cardio S1 normal heart sound, S2 normal heart sound, no murmurs, no rub and no gallops Cardio Narrative: Normal sinus rhythm noted on telemetry Rate: regular rate Rhythm: regular rhythm GI Inspection: abdominal distention Palpation: Negative for tender or guarding Extremity no clubbing, cyanosis or edema Skin Skin Narrative: Surgical sites are clean, dry and intact Neuro CN's II-XII intact bilaterally, moves all extremities and no focal motor deficits Psych mental status grossly normal Charges/Coding Visit Charges Inpatient E&M: 12743 Subs Hosp L3
--- NOTE | 2021-07-23 08:18 | PN.SURG_ITS ---
Subjective Subjective Patient is not having any flatus yet. Abdominal pain is well controlled. Objective Data Objective Data Vital Signs: Vital Signs Temp Pulse Resp BP Pulse Ox 99.5 F H 60 24 H 166/73 H 97 07/23/21 05:00 07/23/21 07:44 07/23/21 07:00 07/23/21 07:00 07/23/21 07:00 Oxygen Flow Rate (L/min) 3 Oxygen Delivery Method Nasal Cannula Weight: 239 lb 10.279 oz Body Mass Index (BMI) 36.6 Intake & Output: Intake and Output for Last 24 Hours 07/21/21 07/22/21 07/23/21 23:59 23:59 23:59 Intake Total 2292.43 / 2292.43 2289.42 / 2294.42 90 / 90 Output Total 3975 / 3975 2420 / 2420 300 / 300 Balance -1682.57 / -1682.57 -130.58 / -125.58 -210 / -210 Lab / Micro Data Result Diagrams: 07/23/21 04:15 07/23/21 04:15 Labs: Laboratory Results - last 24 hr 07/23/21 04:15: WBC 7.1, RBC 3.60 L, Hgb 9.9 L, Hct 30.8 L, MCV 85.6, MCH 27.5, MCHC 32.1, RDW Std Deviation 45.9 H, RDW Coeff of Mike 14.6, Plt Count 132 L, MPV 10.6, Immature Gran % (Auto) 0.800, Neut % (Auto) 78.4 H, Lymph % (Auto) 9.8 L, [place] % (Auto) 10.0, Eos % (Auto) 0.6, Baso % (Auto) 0.4, Absolute Neuts (auto) 5.6, Absolute Lymphs (auto) 0.70 L, Nucleated RBC % 0.3, Differential Comment SCANNED 07/23/21 04:15: Sodium 146 H, Potassium 3.5, Chloride 109 H, Carbon Dioxide 33.0 H, Anion Gap 4 L, BUN 40 H, Creatinine 1.01, Estim Creat Clear Calc 65.84, Est GFR (MDRD) Af Amer 94, Est GFR (MDRD) Non-Af 78, BUN/Creatinine Ratio 39.6 H, Glucose 128 H, Calcium 8.4 L Micro: Microbiology 07/20/21 06:05 Blood Culture (Wb) - Anticubital Right Blood Culture - Preliminary No growth in 48 hours. 07/20/21 05:58 Blood Culture (Wb) - Anticubital Left Blood Culture - Prel iminary No growth in 48 hours. 07/20/21 06:09 Interface Orders SARS-CoV-2 Antigen (Rapid) - Final 07/20/21 05:21 Stool Stool Occult Blood (PEDRO) - Final Occult Blood Positive Radiography Diagnostic Testing: Radiology Impression Echocardiogram 07/22/21 11:12 Interpretation Summary The estimated ejection fraction is 35-40 %. Moderate LVH Mild -moderate MR Mld-moderate TR Mild AI Moderate Pulmonary Hypertension RVSP 55 mmhg Ordering Physician: Roberta Bailey Referring Physician: TOMI KAUR Performed By: Jojo Howe, ALECIA, RVT Rhythm Strip Rhythm Strip: Sinus Tach Rate: 109 Ectopy: None Physical Exam Const no apparent distress Resp normal respiratory effort GI soft to palpation and non-tender Assessment & Plan Assessment/Plan (1) S/P small bowel resection: PLAN: Patient is still mildly febrile. His NG is still dark and he is not having bowel function although he does now have bowel sounds. He is comfortable. His heart rate is controlled. If okay with cardiology I will transfer him out of the ICU today. Continue NG suction until output clears and he starts having bowel function. Continue antibiotics. Fermín Fagan MD Pager: [facility] [address] [place] [address], [address] [place] [address] Office:
--- NOTE | 2021-07-23 09:16 | PN.CARD_ITS ---
Objective Data Vital Signs: Vital Signs Temp Pulse Resp BP Pulse Ox 99.5 F H 60 24 H 166/73 H 97 07/23/21 05:00 07/23/21 07:44 07/23/21 07:00 07/23/21 07:00 07/23/21 07:00 Oxygen Flow Rate (L/min) 2 Oxygen Delivery Method Nasal Cannula Weight: 239 lb 10.279 oz Body Mass Index (BMI) 36.6 Intake & Output: Intake and Output for Last 24 Hours 07/21/21 07/22/21 07/23/21 23:59 23:59 23:59 Intake Total 2292.43 / 2292.43 2289.42 / 2294.42 140 / 140 Output Total 3975 / 3975 2420 / 2420 400 / 400 Balance -1682.57 / -1682.57 -130.58 / -125.58 -260 / -260 Lab / Micro Data Result Diagrams: 07/23/21 04:15 07/23/21 04:15 Labs: Laboratory Results - last 24 hr 07/23/21 04:15: WBC 7.1, RBC 3.60 L, Hgb 9.9 L, Hct 30.8 L, MCV 85.6, MCH 27.5, MCHC 32.1, RDW Std Deviation 45.9 H, RDW Coeff of Mike 14.6, Plt Count 132 L, MPV 10.6, Immature Gran % (Auto) 0.800, Neut % (Auto) 78.4 H, Lymph % (Auto) 9.8 L, [place] % (Auto) 10.0, Eos % (Auto) 0.6, Baso % (Auto) 0.4, Absolute Neuts (auto) 5.6, Absolute Lymphs (auto) 0.70 L, Nucleated RBC % 0.3, Differential Comment SCANNED 07/23/21 04:15: Sodium 146 H, Potassium 3.5, Chloride 109 H, Carbon Dioxide 33.0 H, Anion Gap 4 L, BUN 40 H, Creatinine 1.01, Estim Creat Clear Calc 65.84, Est GFR (MDRD) Af Amer 94, Est GFR (MDRD) Non-Af 78, BUN/Creatinine Ratio 39.6 H, Glucose 128 H, Calcium 8.4 L Micro: Microbiology 07/20/21 06:05 Blood Culture (Wb) - Anticubital Right Blood Culture - Preliminary No growth in 48 hours. 07/20/21 05:58 Blood Culture (Wb) - Anticubital Left Blood Culture - Preliminary No growth in 48 hours. Rhythm Strip Rhythm Strip: Sinus Tach Rate: 109 Ectopy: None Cardiology Labs/Tests 07/23/21 04:15: WBC 7.1, RBC 3.60 L, Hgb 9.9 L, Hct 30.8 L, MCV 85.6, MCH 27.5, MCHC 32.1, Plt Count 132 L, MPV 10.6, Immature Gran % (Auto) 0.800, Neut % (Auto) 78.4 H, Lymph % (Auto) 9.8 L, [place] % (Auto) 10.0, Eos % (Auto) 0.6, Baso % (Auto) 0.4, Absolute Neuts (auto) 5.6, Nucleated RBC % 0.3 07/23/21 04:15: Sodium 146 H, Potassium 3.5, Chloride 109 H, Carbon Dioxide 33.0 H, Anion Gap 4 L, BUN 40 H, Creatinine 1.01, Est GFR (MDRD) Af Amer 94, Est GFR (MDRD) Non-Af 78, BUN/Creatinine Ratio 39.6 H, Glucose 128 H, Calcium 8.4 L Rhythm: EKG: ECHO: Stress Test: Cardiac Cath: PCI: CT Surgery: Holter monitor: EPS: PPM: CXR: Chest CT Scan: Radiography Diagnostic Testing: Radiology Impression Echocardiogram 07/22/21 11:12 Interpretation Summary The estimated ejection fraction is 35-40 %. Moderate LVH Mild -moderate MR Mld-moderate TR Mild AI Moderate Pulmonary Hypertension RVSP 55 mmhg Ordering Physician: Roberta Bailey Referring Physician: TOMI KAUR Performed By: Jojo Howe, WENDYCS, RVT
[2021-07-23] MEDS: Heparin Injection (Vial) 5,000 UNIT/ML VIAL 5000 UNIT SC ×2 (09:49→22:03)
[2021-07-23] MEDS: Metoprolol Tartrate 25 MG Tablet PO ×2 (09:49→22:07)
--- NOTE | 2021-07-23 10:23 | PN.CARD_ITS ---
Subjective Subjective Pt returned to [facility], he was not aware of his fib. It it noted that he is hypertensive. It is noted that his EF is 35-40%, no previous to compare He has not had any CP. Objective Data Vital Signs: Vital Signs Temp Pulse Resp BP Pulse Ox 98.9 F 87 17 178/71 H 91 07/23/21 08:00 07/23/21 09:49 07/23/21 09:00 07/23/21 09:49 07/23/21 09:00 Oxygen Flow Rate (L/min) 2 Oxygen Delivery Method Nasal Cannula Weight: 239 lb 10.279 oz Body Mass Index (BMI) 36.6 Intake & Output: Intake and Output for Last 24 Hours 07/21/21 07/22/21 07/23/21 23:59 23:59 23:59 Intake Total 2292.43 / 2292.43 2289.42 / 2294.42 150 / 150 Output Total 3975 / 3975 2420 / 2420 400 / 400 Balance -1682.57 / -1682.57 -130.58 / -125.58 -250 / -250 Lab / Micro Data Result Diagrams: 07/23/21 04:15 07/23/21 04:15 Labs: Laboratory Results - last 24 hr 07/20/21 06:07: Crossmatch See Detail 07/23/21 04:15: WBC 7.1, RBC 3.60 L, Hgb 9.9 L, Hct 30.8 L, MCV 85.6, MCH 27.5, MCHC 32.1, RDW Std Deviation 45.9 H, RDW Coeff of Mike 14.6, Plt Count 132 L, MPV 10.6, Immature Gran % (Auto) 0.800, Neut % (Auto) 78.4 H, Lymph % (Auto) 9.8 L, [place] % (Auto) 10.0, Eos % (Auto) 0.6, Baso % (Auto) 0.4, Absolute Neuts (auto) 5.6, Absolute Lymphs (auto) 0.70 L, Nucleated RBC % 0.3, Differential Comment SCANNED 07/23/21 04:15: Sodium 146 H, Potassium 3.5, Chloride 109 H, Carbon Dioxide 33.0 H, Anion Gap 4 L, BUN 40 H, Creatinine 1.01, Estim Creat Clear Calc 65.84, Est GFR (MDRD) Af Amer 94, Est GFR (MDRD) Non-Af 78, BUN/Creatinine Ratio 39.6 H, Glucose 128 H, Calcium 8.4 L Micro: Microbiology 07/20/21 06:05 Blood Culture (Wb) - Anticubital Right Blood Culture - Preliminary No growth in 48 hours. 07/20/21 05:58 Blood Culture (Wb) - Anticubital Left Blood Culture - Preliminary No growth in 48 hours. Rhythm Strip Rhythm Strip: Sinus Tach Rate: 109 Ectopy: None Cardiology Labs/Tests 07/23/21 04:15: WBC 7.1, RBC 3.60 L, Hgb 9.9 L, Hct 30.8 L, MCV 85.6, MCH 27.5, MCHC 32.1, Plt Count 132 L, MPV 10.6, Immature Gran % (Auto) 0.800, Neut % (Auto) 78.4 H, Lymph % (Auto) 9.8 L, [place] % (Auto) 10.0, Eos % (Auto) 0.6, Baso % (Auto) 0.4, Absolute Neuts (auto) 5.6, Nucleated RBC % 0.3 07/23/21 04:15: Sodium 146 H, Potassium 3.5, Chloride 109 H, Carbon Dioxide 33.0 H, Anion Gap 4 L, BUN 40 H, Creatinine 1.01, Est GFR (MDRD) Af Amer 94, Est GFR (MDRD) Non-Af 78, BUN/Creatinine Ratio 39.6 H, Glucose 128 H, Calcium 8.4 L EKG: Radiography Diagnostic Testing: Radiology Impression Echocardiogram 07/22/21 11:12 Interpretation Summary The estimated ejection fraction is 35-40 %. Moderate LVH Mild -moderate MR Mld-moderate TR Mild AI Moderate Pulmonary Hypertension RVSP 55 mmhg Ordering Physician: Roberta Bailey Referring Physician: TOMI KAUR Performed By: Jojo Howe, ALECIA, RVT Physical Exam Const alert, oriented x3 and no apparent distress HEENT normocephalic, head/scalp atraumatic, hearing grossly normal bilaterally, external ears normal and TM's normal bilaterally Nose: other Other Details: ng tube Eyes PERRL, EOMs intact bilaterally, conjunctivae normal and no scleral icterus Resp normal respiratory effort, no use of accessory muscles and clear to auscultation bilaterally Cardio Jugular Venous Distention: Negative for JVD Rate: regular rate and tachycardic Rhythm: regular rhythm Heart Sounds: S1 normal and S2 normal; Negative for click, gallop, murmur or rub Peripheral Pulses: pulses 2+ throughout GI Inspection: abdominal distention Neuro oriented x3, CN's II-XII intact bilaterally, moves all extremities and no focal motor deficits
--- NOTE | 2021-07-23 10:37 | PN.CARD_ITS ---
Documented by User: Roberta WALSH, NICO 07/23/21 11:36 Subjective Subjective Pt returned to [facility], he was not aware of his fib. It it noted that he is hypertensive. It is noted that his EF is 35-40%, no previous to compare He has not had any CP. Objective Data Vital Signs: Vital Signs Temp Pulse Resp BP Pulse Ox 98.9 F 87 17 178/71 H 91 07/23/21 08:00 07/23/21 09:49 07/23/21 09:00 07/23/21 09:49 07/23/21 09:00 Oxygen Flow Rate (L/min) 2 Oxygen Delivery Method Nasal Cannula Weight: 239 lb 10.279 oz Body Mass Index (BMI) 36.6 Intake & Output: Intake and Output for Last 24 Hours 07/21/21 07/22/21 07/23/21 23:59 23:59 23:59 Intake Total 2292.43 / 2292.43 2289.42 / 2294.42 260 / 260 Output Total 3975 / 3975 2420 / 2420 400 / 400 Balance -1682.57 / -1682.57 -130.58 / -125.58 -140 / -140 Lab / Micro Data Result Diagrams: 07/26/21 05:55 07/26/21 14:05 Labs: Laboratory Results - last 24 hr 07/20/21 06:07: Crossmatch See Detail 07/23/21 04:15: WBC 7.1, RBC 3.60 L, Hgb 9.9 L, Hct 30.8 L, MCV 85.6, MCH 27.5, MCHC 32.1, RDW Std Deviation 45.9 H, RDW Coeff of Mike 14.6, Plt Count 132 L, MPV 10.6, Immature Gran % (Auto) 0.800, Neut % (Auto) 78.4 H, Lymph % (Auto) 9.8 L, [place] % (Auto) 10.0, Eos % (Auto) 0.6, Baso % (Auto) 0.4, Absolute Neuts (auto) 5.6, Absolute Lymphs (auto) 0.70 L, Nucleated RBC % 0.3, Differential Comment SCANNED 07/23/21 04:15: Sodium 146 H, Potassium 3.5, Chloride 109 H, Carbon Dioxide 33.0 H, Anion Gap 4 L, BUN 40 H, Creatinine 1.01, Estim Creat Clear Calc 65.84, Est GFR (MDRD) Af Amer 94, Est GFR (MDRD) Non-Af 78, BUN/Creatinine Ratio 39.6 H, Glucose 128 H, Calcium 8.4 L Micro: Microbiology 07/20/21 06:05 Blood Culture (Wb) - Anticubital Right Blood Culture - Preliminary No growth in 48 hours. 07/20/21 05:58 Blood Culture (Wb) - Anticubital Left Blood Culture - Preliminary No growth in 48 hours. Rhythm Strip Rhythm Strip: Sinus Tach Rate: 109 Ectopy: None Cardiology Labs/Tests 07/23/21 04:15: WBC 7.1, RBC 3.60 L, Hgb 9.9 L, Hct 30.8 L, MCV 85.6, MCH 27.5, MCHC 32.1, Plt Count 132 L, MPV 10.6, Immature Gran % (Auto) 0.800, Neut % (Auto) 78.4 H, Lymph % (Auto) 9.8 L, [place] % (Auto) 10.0, Eos % (Auto) 0.6, Baso % (Auto) 0.4, Absolute Neuts (auto) 5.6, Nucleated RBC % 0.3 07/23/21 04:15: Sodium 146 H, Potassium 3.5, Chloride 109 H, Carbon Dioxide 33.0 H, Anion Gap 4 L, BUN 40 H, Creatinine 1.01, Est GFR (MDRD) Af Amer 94, Est GFR (MDRD) Non-Af 78, BUN/Creatinine Ratio 39.6 H, Glucose 128 H, Calcium 8.4 L Radiography Diagnostic Testing: Radiology Impression Echocardiogram 07/22/21 11:12 Interpretation Summary The estimated ejection fraction is 35-40 %. Moderate LVH Mild -moderate MR Mld-moderate TR Mild AI Moderate Pulmonary Hypertension RVSP 55 mmhg __ Ordering Physician: Roberta Bailey Referring Physician: TOMI KAUR Performed By: Jojo Howe, WENDYCS, RVT Physical Exam Const alert, oriented x3 and no apparent distress HEENT normocephalic, head/scalp atraumatic, hearing grossly normal bilaterally, exte rnal ears normal and TM's normal bilaterally Nose: other Other Details: ng tube Eyes PERRL, EOMs intact bilaterally, conjunctivae normal and no scleral icterus Resp normal respiratory effort, no use of accessory muscles and clear to auscultation bilaterally Cardio Jugular Venous Distention: Negative for JVD Rate: regular rate Rhythm: regular rhythm Heart Sounds: S1 normal and S2 normal; Negative for click, gallop, murmur or rub Peripheral Pulses: pulses 2+ throughout GI Inspection: abdominal distention Neuro oriented x3, CN's II-XII intact bilaterally, moves all extremities and no focal motor deficits Assessment & Plan Assessment/Plan (1) Atrial fibrillation with RVR: (2) Hypertension: (3) Acute respiratory failure with hypoxia: (4) Pneumatosis of intestines: PLAN: * Suspect that Afib is likely related to his septic shock, he has returned to [facility] * will continue with his metoprolol, stop his cardizem * with his decreased EF- will start lisinopril, this will also help with his hypertension. will also obtain a BTNP * he does have T wave changes on his EKG, with his decreased EF and Afib will obtain a troponin * ideally he should be anticoagulated, his CHADVASC2 is 1, however with is recent surgery will hold off for now. If troponin is positive will start on ASA. . Charges/Coding Visit Charges Inpatient E&M: 46484 Subs Hosp L3 Documented by User: Dr. Barbara Collazo MD 08/04/21 12:53 Lab / Micro Data Result Diagrams: 07/26/21 05:55 07/26/21 14:05 Assessment & Plan Assessment/Plan (1) Essential hypertension: (2) Dyspnea on exertion: (3) Cardiomyopathy: PLAN: This patient seen and evaluated along with the midlevel And cardiac care plan discussed in detail with the nursing staff Agree with the current plan and cardiac care as documented by the midlevel notes We will continue current medication with the plan of follow-up with the cardiology team.
[2021-07-23] MEDS: 0.9% Saline Lock 10 ML Syringe IV ×2 (11:08→12:17)
[2021-07-23] MEDS: Lisinopril 10 MG Tablet PO (11:08)
[2021-07-23 11:22] LABS: Troponin-I HS 2488 pg/mL (3.0-78.0)
[2021-07-23 11:23] LABS: BNP,B-Type NATRIURETIC PEPTIDE 524.1 pg/mL (0-100)
[2021-07-23] MEDS: Furosemide 20 MG/2 ML VIAL IV (12:17)
[2021-07-23] MEDS: busPIRone 5 MG Tablet PO ×2 (13:00→22:16)
[2021-07-23] MEDS: Aspirin 81 MG TAB.CHEW PO (16:02)
--- NOTE | 2021-07-23 20:14 | RAD_ITS ---
INDICATION: NG PLACEMENT VERIFICATION EXAMINATION/TECHNIQUE: X-RAY - XR Abdomen 1 View COMPARISON: None FINDINGS: Lines and tubes: NG tube is noted in place projecting in the distal stomach approaching the pyloric channel. BOWEL GAS PATTERN: Non-obstructive. No bowel or stomach distention. FREE AIR: Not assessed on a single supine view. ORGANOMEGALY: Not seen. CALCIFICATIONS: No abnormal calcifications observed. LOWER CHEST: No acute pathology. BONES AND SOFT TISSUES: No acute pathology. RAD/Abdomen Single View (Portable) IMPRESSION: 1. NG tube extends into the distal stomach approaching the level of pyloric channel and duodenal bulb. 2. Nonobstructive bowel gas pattern. Electronically Signed: Brandyn Celis MD at 21:50 EST Tel , Service support ,
[2021-07-24] VITALS (12 sets, daily range): BP systolic 145–160; BP diastolic 48–63; PULSE 73–86; RESP 18–20; TEMP 36.2–37.8; O2SAT 92–94
--- NOTE | 2021-07-24 08:29 | PN.CC_ITS ---
Assessment & Plan Assessment/Plan (1) SBO (small bowel obstruction): (2) Pneumatosis of intestines: (3) Aspiration pneumonia due to gastric secretions: (4) Acute respiratory failure with hypoxia: PLAN: RECOMMENDATIONS: 1. Continue nasal cannula. Wean FiO2 as tolerated 2. Possibly challenge with Lasix pending laboratory data 3. Antihypertensives/rate control per cardiology 4. Increase activity as tolerated 5. Anticipate 7 to 10 days of antibiotics 6. Tylenol as needed for pain/fever 7. Increase p.o. intake per surgery IMPRESSIONS: 1. Acute hypoxic respiratory failure secondary to aspiration pneumonia Chest x-ray shows endotracheal tube in appropriate position. Patient does have worsening infiltrates bilaterally. Patient has received significant volume resuscitation in the setting of pancreatitis. We will continue to monitor blood pressures. If patient continues to be stable from a hemodynamic standpoint, could consider diuretics. Anticipate 7 to 10 days of IV antibiotics for aspiration and peritonitis related to problem #3. Defer to surgery. We will challenge with Lasix if labs allow 2. Acute kidney injury Resolved. Patient with significant elevation in creatinine with decreased urine output on presentation. Patient did have hypoxia with hypotension for quite some time. Continue to support hemodynamics. Repeat electrolytes with repletion if necessary. No indication for renal replacement therapy previously on laboratory data. 3. Distributive shock secondary to acute pancreatitis secondary to perforated bowel Resolved. Patient with elevated lactate, lipase, white blood cell count and glucose. Given age, this gives a Farzad criteria of 3 on admission. Currently, this would account for his 15% predicted mortality. Repeat labs did not increase Farzad score. Continue to follow blood sugars closely. These could be highly labile 4. Septic shock secondary to perforated bowel Resolved. Patient was on pressors for a short period of time. Patient does have pneumatosis indicating probable perforation. Patient did not have a lot of blood loss during the surgery. We will continue pressors if necessary. If not necessary, we will hold on IV fluids given patient's respiratory failure. 5. Use of tadalafil/GERD/obesity/poor history/hyperlipidemia/hypertension Complicates care, management, recovery and prognosis. Avoid nitrates. Okay to reinitiate a hypertensive medications. Unclear absorption at this time. 6. New onset atrial fibrillation Resolved. Unclear if patient has had this before as he does report some p alpitations. Patient is rate controlled on Cardizem, but likely should be anticoagulated. Cardiology is following Subjective Subjective Patient did well overnight. No acute issues were reported. Patient reported frustration about not being able to take p.o., but states that he has not had any flatus. Patient states his pain is well controlled. Patient is not reporting any significant dyspnea. Objective Data Objective Data Vital Signs: Vital Signs Temp Pulse Resp BP Pulse Ox 37.1 C 73 18 160/55 H 94 07/24/21 03:33 07/24/21 07:31 07/24/21 03:33 07/24/21 03:33 07/24/21 03:33 Oxygen Flow Rate (L/min) 2 Oxygen Delivery Method Nasal Cannula Weight: 106.6 kg Body Mass Index (BMI) 36.6 Intake & Output: Intake and Output for Last 24 Hours 07/22/21 07/23/21 07/24/21 23:59 23:59 23:59 Intake Total 2289.42 / 2294.42 837.58 / 957.58 660 / 660 Output Total 2420 / 2420 1730 / 1930 850 / 850 Balance -130.58 / -125.58 -892.42 / -972.42 -190 / -190 Lab / Micro Data Result Diagrams: 07/23/21 04:15 07/23/21 04:15 Labs: Laboratory Results - last 24 hr 07/20/21 06:07: Crossmatch See Detail 07/23/21 04:15: Troponin I High Sens 2488 H* 07/23/21 04:15: B-Natriuretic Peptide 524.1 H Micro: Microbiology 07/20/21 06:05 Blood Culture (Wb) - Anticubital Right Blood Culture - Preliminary No growth in 48 hours. 07/20/21 05:58 Blood Culture (Wb) - Anticubital Left Blood Culture - Preliminary No growth in 48 hours. 07/20/21 06:09 Interface Orders SARS-CoV-2 Antigen (Rapid) - Final 07/20/21 05:21 Stool Stool Occult Blood (PEDRO) - Final Occult Blood Positive Radiography Diagnostic Testing: Radiology Impression KUB X-Ray 07/23/21 20:14 IMPRESSION: 1. NG tube extends into the distal stomach approaching the level of pyloric channel and duodenal bulb. 2. Nonobstructive bowel gas pattern. Electronically Signed: Brandyn Celis MD at 21:50 EST Tel , Service support , Rhythm Strip Rhythm Strip: Sinus Tach Rate: 109 Ectopy: None Physical Exam Const no apparent distress General Appearance: cooperative, comfortable, intubated and patient mechanically ventilated Nutritional Appearance: obese HEENT normocephalic and head/scalp atraumatic Eyes conjunctivae normal and no scleral icterus Chest inspection of chest normal Chest: symmetrical chest wall rise; Negative for crepitus Resp Effort and Inspection: prolonged expiratory phase Auscultation: diminished lung sounds; Negative for rales, rhonchi or wheezes Cardio S1 normal heart sound, S2 normal heart sound, no murmurs, no rub and no gallops Cardio Narrative: Normal sinus rhythm noted on telemetry Rate: regular rate Rhythm: regular rhythm GI Inspection: abdominal distention Palpation: Negative for tender or guarding Extremity no clubbing, cyanosis or edema Skin Skin Narrative: Surgical sites are clean, dry and intact Neuro CN's II-XII intact bilaterally, moves all extremities and no focal motor deficits Psych mental status grossly normal Charges/Coding Visit Charges Inpatient E&M: 89385 Subs Hosp L2
[2021-07-24] MEDS: 0.9% Saline Lock 10 ML Syringe IV ×2 (08:43→21:34)
[2021-07-24 08:44] LABS: Absolute Lymphocyte Count 1.05 X10^3/uL (0.83-4.51); Absolute Neutrophil Count 6.8 X10^3/uL (2.0-7.7); Basophil# 0.04 X10^3/uL; Basophil% 0.4 % (0-1); Eosinophil# 0.08 X10^3/uL; Eosinophils% 0.9 % (0-5); Hematocrit 30.5 % (40-54); Lymphocyte # 1.05 X10^3/ul (0.83-4.51); Lymphocyte % 11.3 % (19-41); Mean Corp Hgb Conc 32.8 g/dL (32-36); Mean Corpuscular Hgb 28.2 pg (27.0-32.0); Mean Corpuscular Volume 85.9 fL (80-94); Mean Platelet Vol. 10.6 fl (6.2-12.0); Monocyte# 0.99 X10^3/uL; Monocyte% 10.6 % (0-10); NRBC Flagged by Analyzer 0.3 % (0-5); Neutrophil # 6.82 X10^3/uL (2.7-7.7); Neutrophil % 73.2 % (47-70); Platelet Count 122 K/mm3 (150-450); RBC Distribution Width SD 47.2 fl (35.1-43.9); Red Blood Count 3.55 M/mm3 (4.6-6.2); White Blood Count 9.3 K/mm3 (4.4-11.0)
[2021-07-24 09:11] LABS: Anion Gap 3 (5-15); BUN 40 mg/dL (7-18); BUN/Creat Ratio 43.3 RATIO (10-20); Calcium,Total 8.2 mg/dL (8.5-10.1); Chloride 109 mmol/L (98-107); Creatinine, Serum 0.92 mg/dL (0.70-1.30); EST Glomerular Filtration Rate 86 mL/min (>60); Est Glom Filt Rate - Afr Amer 104 mL/min (>60); Estimated Creatinine Clearance 72.28 ml/min; Glucose 97 mg/dL (74-106); Potassium 3.3 mmol/L (3.5-5.1); Sodium Level 143 mmol/L (136-145)
[2021-07-24] MEDS: Aspirin 81 MG TAB.CHEW PO (09:32)
[2021-07-24] MEDS: Metoprolol Tartrate 25 MG Tablet PO ×2 (09:32→21:27)
[2021-07-24] MEDS: Lisinopril 10 MG Tablet PO (09:33)
--- NOTE | 2021-07-24 10:01 | PN.SURG_ITS ---
Subjective Subjective Patient is not passing any flatus yet. No nausea or vomiting. Objective Data Objective Data Vital Signs: Vital Signs Temp Pulse Resp BP Pulse Ox 97.2 F L 79 18 160/63 H 92 07/24/21 09:26 07/24/21 09:32 07/24/21 09:26 07/24/21 09:32 07/24/21 09:26 Oxygen Flow Rate (L/min) 2 Oxygen Delivery Method Nasal Cannula Weight: 235 lb 0.204 oz Body Mass Index (BMI) 36.6 Intake & Output: Intake and Output for Last 24 Hours 07/22/21 07/23/21 07/24/21 23:59 23:59 23:59 Intake Total 2289.42 / 2294.42 837.58 / 957.58 710 / 710 Output Total 2420 / 2420 1730 / 1930 1070 / 1070 Balance -130.58 / -125.58 -892.42 / -972.42 -360 / -360 Lab / Micro Data Result Diagrams: 07/24/21 08:24 07/24/21 08:10 Labs: Laboratory Results - last 24 hr 07/20/21 06:07: Crossmatch See Detail 07/23/21 04:15: Troponin I High Sens 2488 H* 07/23/21 04:15: B-Natriuretic Peptide 524.1 H 07/24/21 08:10: Sodium 143, Potassium 3.3 L, Chloride 109 H, Carbon Dioxide 31.0, Anion Gap 3 L, BUN 40 H, Creatinine 0.92, Estim Creat Clear Calc 72.28, Est GFR (MDRD) Af Amer 104, Est GFR (MDRD) Non-Af 86, BUN/Creatinine Ratio 43.3 H, Glucose 97, Calcium 8.2 L 07/24/21 08:24: WBC 9.3, RBC 3.55 L, Hgb 10.0 L, Hct 30.5 L, MCV 85.9, MCH 28.2, MCHC 32.8, RDW Std Deviation 47.2 H, RDW Coeff of Mike 15.0 H, Plt Count 122 L, MPV 10.6, Immature Gran % (Auto) 3.600 H, Neut % (Auto) 73.2 H, Lymph % (Auto) 11.3 L, [place] % (Auto) 10.6 H, Eos % (Auto) 0.9, Baso % (Auto) 0.4, Absolute Neuts (auto) 6.8, Absolute Lymphs (auto) 1.05, Nucleated RBC % 0.3 Micro: Microbiology 07/20/21 06:05 Blood Culture (Wb) - Anticubital Right Blood Culture - Preliminary No growth in 48 hours. 07/20/21 05:58 Blood Culture (Wb) - Anticubital Left Blood Culture - Preliminary No growth in 48 hours. 07/20/21 06:09 Interface Orders SARS-CoV-2 Antigen (Rapid) - Final 07/20/21 05:21 Stool Stool Occult Blood (PEDRO) - Final Occult Blood Positive Radiography Diagnostic Testing: Radiology Impression KUB X-Ray 07/23/21 20:14 IMPRESSION: 1. NG tube extends into the distal stomach approaching the level of pyloric channel and duodenal bulb. 2. Nonobstructive bowel gas pattern. Electronically Signed: Brandyn Celis MD at 21:50 EST Tel , Service support , Rhythm Strip Rhythm Strip: Sinus Tach Rate: 109 Ectopy: None Physical Exam Const oriented x3 and no apparent distress Resp normal respiratory effort Cardio regular rate GI soft to palpation and non-tender Assessment & Plan Assessment/Plan (1) S/P small bowel resection: PLAN: Patient has NG in place with dark green output. It may be postpyloric. He is still not passing any flatus. Once he passes flatus I will remove the NG and start clear liquids. Incision is clean dry and intact. Fermín Fagan MD Pager: [facility] [address] [place] [address], [address] [place] [address] Office:
[2021-07-24] MEDS: Heparin Injection (Vial) 5,000 UNIT/ML VIAL 5000 UNIT SC ×2 (10:44→21:24)
[2021-07-24] MEDS: Potassium Chloride 20mEq/100mL 20 MEQ/100 ML IV.SOLN. 100 MEQ IV BOLUS ×2 (11:10→12:56)
--- NOTE | 2021-07-24 12:15 | PN.CARD_ITS ---
Subjective Subjective Seen and evaluated at bedside not in acute distress no symptoms reported He still has a NGT in place Objective Data Vital Signs: Vital Signs Temp Pulse Resp BP Pulse Ox 97.2 F L 79 18 160/63 H 93 07/24/21 09:26 07/24/21 09:32 07/24/21 09:26 07/24/21 09:32 07/24/21 11:53 Oxygen Flow Rate (L/min) 2 Oxygen Delivery Method Nasal Cannula Weight: 235 lb 0.204 oz Body Mass Index (BMI) 36.6 Intake & Output: Intake and Output for Last 24 Hours 07/22/21 07/23/21 07/24/21 23:59 23:59 23:59 Intake Total 2289.42 / 2294.42 837.58 / 957.58 820 / 820 Output Total 2420 / 2420 1730 / 1930 1070 / 1070 Balance -130.58 / -125.58 -892.42 / -972.42 -250 / -250 Lab / Micro Data Result Diagrams: 07/24/21 08:24 07/24/21 08:10 Labs: Laboratory Results - last 24 hr 07/24/21 08:10: Sodium 143, Potassium 3.3 L, Chloride 109 H, Carbon Dioxide 31.0, Anion Gap 3 L, BUN 40 H, Creatinine 0.92, Estim Creat Clear Calc 72.28, Est GFR (MDRD) Af Amer 104, Est GFR (MDRD) Non-Af 86, BUN/Creatinine Ratio 43.3 H, Glucose 97, Calcium 8.2 L 07/24/21 08:24: WBC 9.3, RBC 3.55 L, Hgb 10.0 L, Hct 30.5 L, MCV 85.9, MCH 28.2, MCHC 32.8, RDW Std Deviation 47.2 H, RDW Coeff of Mike 15.0 H, Plt Count 122 L, MPV 10.6, Immature Gran % (Auto) 3.600 H, Neut % (Auto) 73.2 H, Lymph % (Auto) 11.3 L, [place] % (Auto) 10.6 H, Eos % (Auto) 0.9, Baso % (Auto) 0.4, Absolute Neuts (auto) 6.8, Absolute Lymphs (auto) 1.05, Nucleated RBC % 0.3 Rhythm Strip Rhythm Strip: Sinus Tach Rate: 109 Ectopy: None Cardiology Labs/Tests 07/24/21 08:10: Sodium 143, Potassium 3.3 L, Chloride 109 H, Carbon Dioxide 31.0, Anion Gap 3 L, BUN 40 H, Creatinine 0.92, Est GFR (MDRD) Af Amer 104, Est GFR (MDRD) Non-Af 86, BUN/Creatinine Ratio 43.3 H, Glucose 97, Calcium 8.2 L 07/24/21 08:24: WBC 9.3, RBC 3.55 L, Hgb 10.0 L, Hct 30.5 L, MCV 85.9, MCH 28.2, MCHC 32.8, Plt Count 122 L, MPV 10.6, Immature Gran % (Auto) 3.600 H, Neut % (Auto) 73.2 H, Lymph % (Auto) 11.3 L, [place] % (Auto) 10.6 H, Eos % (Auto) 0.9, Baso % (Auto) 0.4, Absolute Neuts (auto) 6.8, Nucleated RBC % 0.3 Rhythm: EKG: ECHO: Stress Test: Cardiac Cath: PCI: CT Surgery: Holter monitor: EPS: PPM: CXR: Chest CT Scan: Radiography Diagnostic Testing: Radiology Impression KUB X-Ray 07/23/21 20:14 IMPRESSION: 1. NG tube extends into the distal stomach approaching the level of pyloric channel and duodenal bulb. 2. Nonobstructive bowel gas pattern. Electronically Signed: Brandyn Celis MD at 21:50 EST Tel , Service support , Physical Exam Narrative Review of cardiac telemetry normal sinus rhythm Cardiovascular exam S1-S2 regular Chest exam clear to auscultation Central nervous system exam no focal neurological deficit. Examination lower extremity no lower extremity edema Assessment & Plan Assessment/Plan (1) S/P small bowel resection: (2) Hypertension: (3) Acute respiratory failure with hypoxia: (4) Aspiration pneumonia due to gastric secretions: (5) Acidosis, lactic: (6) Pneumatosis of intestines: (7) Atrial fibrillation with RVR: PLAN: 71-year-old patient with history of small bowel obstruction unde rwent surgical resection Had a history of aspiration pneumonia acute respiratory failure with hypoxia Initial cardiac consultation was because of A. fib with RVR started on treatment with calcium channel tara and beta-tara and converted to normal sinus rhythm. Subsequent evaluation with cardiac biomarkers show significant elevated high sensitive troponin I and a BMP and significantly abnormal echocardiogram With clear evidence of non-ST elevation myocardial infarction. Patient had a recent surgery with small bowel resection and is still had NG tube in place Cardiovascular system recommendation; 1. I reviewed the current medication will continue current treatment. The echocardiographic evaluation showed ejection fraction 35-40% with moderate pulmonary hypertension, percent calculated RV systolic pressure is around 55 mmHg. Mild to moderate MR mild to moderate TR with mild aortic regurgitation. 2. We will continue to monitor and follow-up this patient clinically, to continue monitoring the electrolyte and renal function.
[2021-07-24] MEDS: busPIRone 5 MG Tablet PO (21:23)
[2021-07-24] MEDS: Acetaminophen 650 MG/20 ML UDC GT (21:39)
[2021-07-25] VITALS (15 sets, daily range): BP systolic 150–166; BP diastolic 53–59; PULSE 74–96; RESP 18–20; TEMP 36.8–38.2; O2SAT 86–97
--- NOTE | 2021-07-25 08:27 | PCM.PN.INT ---
Assessment & Plan Assessment/Plan (1) SBO (small bowel obstruction): (2) Pneumatosis of intestines: (3) Aspiration pneumonia due to gastric secretions: (4) Acute respiratory failure with hypoxia: PLAN: RECOMMENDATIONS: 1. Continue nasal cannula. Wean FiO2 as tolerated 2. Possibly challenge with Lasix pending laboratory data 3. Antihypertensives/rate control per cardiology 4. Increase activity as tolerated 5. Anticipate 7 to 10 days of antibiotics 6. Tylenol as needed for pain/fever 7. Hemodynamically stable on room air. Will sign off from a critical care/pulmonary perspective IMPRESSIONS: 1. Acute hypoxic respiratory failure secondary to aspiration pneumonia Chest x-ray shows endotracheal tube in appropriate position. Patient does have worsening infiltrates bilaterally. Patient has received significant volume resuscitation in the setting of pancreatitis. We will continue to monitor blood pressures. If patient continues to be stable from a hemodynamic standpoint, could consider diuretics. Anticipate 7 to 10 days of IV antibiotics for aspiration and peritonitis related to problem #3. Defer to surgery. Patient likely only needs to follow-up with pulmonary if requested are still requiring supplemental oxygen at discharge. Otherwise, patient is hemodynamically stable on minimal nasal cannula oxygen. Will sign off from a pulmonary perspective 2. Acute kidney injury Resolved. Patient with significant elevation in creatinine with decreased urine output on presentation. Patient did have hypoxia with hypotension for quite some time. Continue to support hemodynamics. Repeat electrolytes with repletion if necessary. No indication for renal replacement therapy previously on laboratory data. 3. Distributive shock secondary to acute pancreatitis secondary to perforated bowel Resolved. Patient with elevated lactate, lipase, white blood cell count and glucose. Given age, this gives a Farzad criteria of 3 on admission. Currently, this would account for his 15% predicted mortality. Repeat labs did not increase [place] score. Continue to follow blood sugars closely. These could be highly labile 4. Septic shock secondary to perforated bowel Resolved. Patient was on pressors for a short period of time. Patient does have pneumatosis indicating probable perforation. Patient did not have a lot of blood loss during the surgery. We will continue pressors if necessary. If not necessary, we will hold on IV fluids given patient's respiratory failure. 5. Use of tadalafil/GERD/obesity/poor history/hyperlipidemia/hypertension Complicates care, management, recovery and prognosis. Avoid nitrates. Okay to reinitiate home regimen 6. New onset atrial fibrillation Resolved. Unclear if patient has had this before as he does report some palpitations. Patient is rate controlled on Cardizem, but likely should be anticoagulated. Cardiology is following Subjective Subjective Patient did well overnight. No acute issues were reported. Patient did have NG removed and is reporting flatus. Patient has not had much p.o. intake. Objective Data Objective Data Vital Signs: Vital Signs Temp Pulse Resp BP Pulse Ox 37.5 C H 74 20 H 166/59 H 93 07/25/21 03:30 07/25/21 06:55 07/25/21 03:30 07/25/21 03:30 07/25/21 07:21 Oxygen Flow Rate (L/min) 2 Oxygen Delivery Method Nasal Cannula Weight: 107.7 kg Body Mass Index (BMI) 36.6 Intake & Output: Intake and Output for Last 24 Hours 07/23/21 07/24/21 07/25/21 23:59 23:59 23:59 Intake Total 837.58 / 957.58 2470 / 2470 50 / 50 Output Total 1730 / 1930 1420 / 1420 400 / 400 Balance -892.42 / -972.42 1050 / 1050 -350 / -350 Lab / Micro Data Result Diagrams: 07/24/21 08:24 07/24/21 08:10 Labs: Laboratory Results - last 24 hr 07/24/21 08:10: Sodium 143, Potassium 3.3 L, Chloride 109 H, Carbon Dioxide 31.0, Anion Gap 3 L, BUN 40 H, Creatinine 0.92, Estim Creat Clear Calc 72.28, Est GFR (MDRD) Af Amer 104, Est GFR (MDRD) Non-Af 86, BUN/Creatinine Ratio 43.3 H, Glucose 97, Calcium 8.2 L 07/24/21 08:24: WBC 9.3, RBC 3.55 L, Hgb 10.0 L, Hct 30.5 L, MCV 85.9, MCH 28.2, MCHC 32.8, RDW Std Deviation 47.2 H, RDW Coeff of Mike 15.0 H, Plt Count 122 L, MPV 10.6, Immature Gran % (Auto) 3.600 H, Neut % (Auto) 73.2 H, Lymph % (Auto) 11.3 L, [place] % (Auto) 10.6 H, Eos % (Auto) 0.9, Baso % (Auto) 0.4, Absolute Neuts (auto) 6.8, Absolute Lymphs (auto) 1.05, Nucleated RBC % 0.3 Micro: Microbiology 07/20/21 05:58 Blood Culture (Wb) - Anticubital Left Blood Culture - Final No growth in 5 days. 07/20/21 06:05 Blood Culture (Wb) - Anticubital Right Blood Culture - Preliminary No growth in 48 hours. 07/20/21 06:09 Interface Orders SARS-CoV-2 Antigen (Rapid) - Final 07/20/21 05:21 Stool Stool Occult Blood (PEDRO) - Final Occult Blood Positive Rhythm Strip Rhythm Strip: Sinus Tach Rate: 109 Ectopy: None Physical Exam Const alert, oriented x3 and no apparent distress Constitutional Narrative: No conversational dyspnea noted General Appearance: cooperative and comfortable; Negative for intubated or patient mechanically ventilated Nutritional Appearance: obese HEENT normocephalic and head/scalp atraumatic Eyes conjunctivae normal and no scleral icterus Chest inspection of chest normal Chest: symmetrical chest wall rise; Negative for crepitus Resp Effort and Inspection: prolonged expiratory phase Auscultation: diminished lung sounds; Negative for rales, rhonchi or wheezes Cardio S1 normal heart sound, S2 normal heart sound, no murmurs, no rub and no gallops Cardio Narrative: Normal sinus rhythm noted on telemetry Rate: regular rate Rhythm: regular rhythm GI Inspection: abdominal distention Palpation: Negative for tender or guarding Extremity no clubbing, cyanosis or edema Skin Skin Narrative: Surgical sites are clean, dry and intact Neuro CN's II-XII intact bilaterally, moves all extremities and no focal motor deficits Psych mental status grossly normal Charges/Coding Visit Charges Inpatient E&M: 03945 Subs Hosp L2
--- NOTE | 2021-07-25 08:55 | PCM.PN.SRG ---
Subjective Subjective Patient started passing flatus yesterday and was started on a clear liquid diet which he tolerated. Objective Data Objective Data Vital Signs: Vital Signs Temp Pulse Resp BP Pulse Ox 99.5 F H 74 20 H 166/59 H 93 07/25/21 03:30 07/25/21 06:55 07/25/21 03:30 07/25/21 03:30 07/25/21 07:21 Oxygen Flow Rate (L/min) 2 Oxygen Delivery Method Nasal Cannula Weight: 237 lb 7.005 oz Body Mass Index (BMI) 36.6 Intake & Output: Intake and Output for Last 24 Hours 07/23/21 07/24/21 07/25/21 23:59 23:59 23:59 Intake Total 837.58 / 957.58 2470 / 2470 50 / 50 Output Total 1730 / 1930 1420 / 1420 400 / 400 Balance -892.42 / -972.42 1050 / 1050 -350 / -350 Lab / Micro Data Result Diagrams: 07/24/21 08:24 07/24/21 08:10 Labs: Laboratory Results - last 24 hr 07/24/21 08:10: Sodium 143, Potassium 3.3 L, Chloride 109 H, Carbon Dioxide 31.0, Anion Gap 3 L, BUN 40 H, Creatinine 0.92, Estim Creat Clear Calc 72.28, Est GFR (MDRD) Af Amer 104, Est GFR (MDRD) Non-Af 86, BUN/Creatinine Ratio 43.3 H, Glucose 97, Calcium 8.2 L Micro: Microbiology 07/20/21 05:58 Blood Culture (Wb) - Anticubital Left Blood Culture - Final No growth in 5 days. 07/20/21 06:05 Blood Culture (Wb) - Anticubital Right Blood Culture - Preliminary No growth in 48 hours. 07/20/21 06:09 Interface Orders SARS-CoV-2 Antigen (Rapid) - Final 07/20/21 05:21 Stool Stool Occult Blood (PEDRO) - Final Occult Blood Positive Rhythm Strip Rhythm Strip: Sinus Tach Rate: 109 Ectopy: None Physical Exam Const oriented x3 Resp normal respiratory effort GI soft to palpation Inspection: abdominal distention Assessment & Plan Assessment/Plan (1) SBO (small bowel obstruction): PLAN: Patient reports tolerating a clear liquid diet despite distention. He is passing flatus but this due to the distention I do not want advance to regular diet, I will try full liquids today. Fermín Fagan MD Pager: [facility] [address] [place] [address], [address] [place] [address] Office:
[2021-07-25] MEDS: Metoprolol Tartrate 25 MG Tablet PO ×2 (09:11→20:38)
[2021-07-25] MEDS: Lisinopril 10 MG Tablet PO (09:11)
[2021-07-25] MEDS: Heparin Injection (Vial) 5,000 UNIT/ML VIAL 5000 UNIT SC ×2 (09:11→20:39)
[2021-07-25] MEDS: Aspirin 81 MG TAB.CHEW PO (09:11)
[2021-07-25 10:27] LABS: Basophil# 0.04 X10^3/uL; Eosinophil# 0.13 X10^3/uL; Hematocrit 29.1 % (40-54); Hemoglobin 9.5 g/dL (13.0-16.5); Mean Corp Hgb Conc 32.6 g/dL (32-36); Mean Corpuscular Hgb 27.4 pg (27.0-32.0); Mean Corpuscular Volume 83.9 fL (80-94); Mean Platelet Vol. 10.7 fl (6.2-12.0); Monocyte# 0.72 X10^3/uL; NRBC Flagged by Analyzer 0.4 % (0-5); POSITIVE COUNT YES; POSITIVE MORPHOLOGY YES; Platelet Count 126 K/mm3 (150-450); RBC Distribution Width CV 14.8 % (11.6-14.6); Red Blood Count 3.47 M/mm3 (4.6-6.2); White Blood Count 7.8 K/mm3 (4.4-11.0)
[2021-07-25 10:34] LABS: Differential Indicated SCAN CRITERIA MET
[2021-07-25 10:36] LABS: Anion Gap 7 (5-15); BUN 24 mg/dL (7-18); BUN/Creat Ratio 32.2 RATIO (10-20); Calcium,Total 7.8 mg/dL (8.5-10.1); Chloride 103 mmol/L (98-107); Creatinine, Serum 0.74 mg/dL (0.70-1.30); EST Glomerular Filtration Rate 110 mL/min (>60); Est Glom Filt Rate - Afr Amer 133 mL/min (>60); Glucose 73 mg/dL (74-106); Potassium 3.3 mmol/L (3.5-5.1); Sodium Level 137 mmol/L (136-145)
[2021-07-25 10:55] LABS: Scan Smear per Review Criteria MANUAL DIFF
[2021-07-25 10:59] LABS: Eosinophil 1 % (0-5); Lymphocyte 9 % (19-41); Metamyelocyte 2 % (0-1); Monocyte 6 % (0-10); Neutrophil-Band 7 % (0-5); Neutrophil-Segmented 75 % (47-70); Total Cells Counted 100 (MANUAL DIFF)
[2021-07-25 11:00] LABS: Anisocytosis 2+; Platelet Estimate SLT DEC (ADEQ)
[2021-07-25 11:01] LABS: Polychromasia 1+
[2021-07-25 11:02] LABS: Absolute Neutrophil Count 6.4 X10^3/uL (2.0-7.7); Neutrophil # 6.36 X10^3/uL (2.7-7.7)
--- NOTE | 2021-07-25 13:10 | PCM.PN.CARD ---
Subjective Subjective Patient seen evaluated today feeling better walking on the progressive care unit with the adjunct nursing faculty No symptoms of chest pain and no symptoms of shortness of breath. Objective Data Vital Signs: Vital Signs Temp Pulse Resp BP Pulse Ox 98.6 F 81 18 156/54 H 94 07/25/21 09:00 07/25/21 09:11 07/25/21 09:00 07/25/21 09:00 07/25/21 09:00 Oxygen Flow Rate (L/min) 2 Oxygen Delivery Method Nasal Cannula Weight: 237 lb 7.005 oz Body Mass Index (BMI) 36.6 Intake & Output: Intake and Output for Last 24 Hours 07/23/21 07/24/21 07/25/21 23:59 23:59 23:59 Intake Total 837.58 / 957.58 2470 / 2470 50 / 50 Output Total 1730 / 1930 1420 / 1420 400 / 400 Balance -892.42 / -972.42 1050 / 1050 -350 / -350 Lab / Micro Data Result Diagrams: 07/25/21 07:50 07/25/21 07:50 Labs: Laboratory Results - last 24 hr 07/25/21 07:50: WBC 7.8, RBC 3.47 L, Hgb 9.5 L, Hct 29.1 L, MCV 83.9, MCH 27.4, MCHC 32.6, RDW Std Deviation 45.0 H, RDW Coeff of Mike 14.8 H, Plt Count 126 L, MPV 10.7, Immature Gran % (Auto) WASTEWATER TREATMENT OPERATOR, Neut % (Auto) WASTEWATER TREATMENT OPERATOR, Lymph % (Auto) WASTEWATER TREATMENT OPERATOR, [place] % (Auto) WASTEWATER TREATMENT OPERATOR, Eos % (Auto) WASTEWATER TREATMENT OPERATOR, Baso % (Auto) WASTEWATER TREATMENT OPERATOR, Absolute Neuts (auto) 6.4, Absolute Lymphs (auto) 0.70 L, Total Counted 100, Neutrophils % (Manual) 75 H, Band Neutrophils % 7 H, Lymphocytes % (Manual) 9 L, Monocytes % (Manual) 6, Eosinophils % (Manual) 1, Metamyelocytes % 2 H, Nucleated RBC % 0.4, Diff Path Review January, Platelet Estimate SLT DEC, Polychromasia 1+, Anisocytosis 2+ 07/25/21 07:50: Sodium 137, Potassium 3.3 L, Chloride 103, Carbon Dioxide 27.0, Anion Gap 7, BUN 24 H, Creatinine 0.74, Estim Creat Clear Calc 66.50, Est GFR (MDRD) Af Amer 133, Est GFR (MDRD) Non-Af 110, BUN/Creatinine Ratio 32.2 H, Glucose 73 L, Calcium 7.8 L Micro: Microbiology 07/20/21 06:05 Blood Culture (Wb) - Anticubital Right Blood Culture - Final No growth in 5 days. 07/20/21 05:58 Blood Culture (Wb) - Anticubital Left Blood Culture - Final No growth in 5 days. Rhythm Strip Rhythm Strip: Sinus Tach Rate: 109 Ectopy: None Cardiology Labs/Tests 07/25/21 07:50: WBC 7.8, RBC 3.47 L, Hgb 9.5 L, Hct 29.1 L, MCV 83.9, MCH 27.4, MCHC 32.6, Plt Count 126 L, MPV 10.7, Immature Gran % (Auto) WASTEWATER TREATMENT OPERATOR, Neut % (Auto) WASTEWATER TREATMENT OPERATOR, Lymph % (Auto) WASTEWATER TREATMENT OPERATOR, [place] % (Auto) WASTEWATER TREATMENT OPERATOR, Eos % (Auto) WASTEWATER TREATMENT OPERATOR, Baso % (Auto) WASTEWATER TREATMENT OPERATOR, Absolute Neuts (auto) 6.4, Total Counted 100, Neutrophils % (Manual) 75 H, Band Neutrophils % 7 H, Lymphocytes % (Manual) 9 L, Monocytes % (Manual) 6, Eosinophils % (Manual) 1, Metamyelocytes % 2 H, Nucleated RBC % 0.4 07/25/21 07:50: Sodium 137, Potassium 3.3 L, Chloride 103, Carbon Dioxide 27.0, Anion Gap 7, BUN 24 H, Creatinine 0.74, Est GFR (MDRD) Af Amer 133, Est GFR (MDRD) Non-Af 110, BUN/Creatinine Ratio 32.2 H, Glucose 73 L, Calcium 7.8 L Rhythm: EKG: ECHO: Stress Test: Cardiac Cath: PCI: CT Surgery: Holter monitor: EPS: PPM: CXR: Chest CT Scan: Physical Exam Narrative Review of cardiac telemetry normal sinus rhythm Cardiovascular exam S1-S2 regular there is no murmur Chest exam clear to auscultation bilateral. Examination lower extremity no clubbing no cyanosis no lower extremity edema. Assessment & Plan Assessment/Plan (1) S/P small bowel resection: (2) Acute respiratory failure with hypoxia: (3) Aspiration pneumonia due to gastric secretions: (4) Atrial fibrillation with RVR: PLAN: This patient with small bowel obstruction underwent surgical resection and has been feeling well. Started on clear liquid diet Cardiovascular assessment and plan; 1. Patient had episode of new onset, paroxysmal atrial fibrillation converted to normal sinus rhythm. Had a recent surgery with a small bowel obstruction and status post small bowel resection, patient had septic shock secondary to perforated bowel and is stable clinically now. Still had distended abdomen and high risk for anticoagulation at this point 2. Patient had evidence of non-ST elevation VA with significant elevation of cardiac biomarkers high sensitive troponins Has moderate LV systolic dysfunction with ejection fraction 35-40%. 3. I reviewed all his cardiac medication with the nursing staff will continue current treatment 4. Patient will need to follow-up with the cardiology team to discuss further cardiac care plan in regard to the paroxysmal A. fib and as well to evaluate for coronary artery atherosclerosis. 5. We will start on low-dose aspirin in addition to the RENEE inhibitor beta-tara patient is allergic to statin And he is a high risk for bleeding and not a candidate for anticoagulation at this point.
[2021-07-25] MEDS: Acetaminophen 650 MG/20 ML UDC GT (18:40)
[2021-07-26] VITALS (12 sets, daily range): BP systolic 112–155; BP diastolic 40–54; PULSE 75–99; RESP 16; TEMP 36.5–37.3; O2SAT 88–96
--- NOTE | 2021-07-26 04:17 | PCS.PANDOC ---
PANDEMIC DOCUMENTATION INITIATED: Date: 04/26/2021 Time: 190
[2021-07-26] MEDS: 0.9% Saline Lock 10 ML Syringe IV (06:22)
[2021-07-26 07:15] LABS: Hematocrit 30.1 % (40-54); Hemoglobin 9.7 g/dL (13.0-16.5); Mean Corp Hgb Conc 32.2 g/dL (32-36); Mean Corpuscular Hgb 27.1 pg (27.0-32.0); Mean Corpuscular Volume 84.1 fL (80-94); Mean Platelet Vol. 10.9 fl (6.2-12.0); POSITIVE COUNT YES; POSITIVE MORPHOLOGY YES; Platelet Count 135 K/mm3 (150-450); RBC Distribution Width CV 14.6 % (11.6-14.6); RBC Distribution Width SD 45.1 fl (35.1-43.9); Red Blood Count 3.58 M/mm3 (4.6-6.2); White Blood Count 9.2 K/mm3 (4.4-11.0)
[2021-07-26 07:20] LABS: Differential Indicated MANUAL DIFF
[2021-07-26 07:45] LABS: Anion Gap 3 (5-15); BUN 16 mg/dL (7-18); BUN/Creat Ratio 22.7 RATIO (10-20); Calcium,Total 7.9 mg/dL (8.5-10.1); Chloride 105 mmol/L (98-107); EST Glomerular Filtration Rate 117 mL/min (>60); Est Glom Filt Rate - Afr Amer 142 mL/min (>60); Glucose 101 mg/dL (74-106); Potassium 3.4 mmol/L (3.5-5.1); Sodium Level 139 mmol/L (136-145)
--- NOTE | 2021-07-26 07:55 | PCM.PN.SRG ---
Subjective Subjective Patient tolerated full liquids and had a bowel movement yesterday. No nausea or vomiting and his abdominal pain is well controlled. Objective Data Objective Data Vital Signs: Vital Signs Temp Pulse Resp BP Pulse Ox 97.7 F L 78 16 112/40 L 95 07/26/21 06:18 07/26/21 06:37 07/26/21 06:18 07/26/21 06:18 07/26/21 06:18 Oxygen Flow Rate (L/min) 2 Oxygen Delivery Method Nasal Cannula Weight: 236 lb 15.951 oz Body Mass Index (BMI) 36.6 Intake & Output: Intake and Output for Last 24 Hours 07/24/21 07/25/21 07/26/21 23:59 23:59 23:59 Intake Total 2470 / 2470 980 / 980 50 / 50 Output Total 1420 / 1420 1300 / 1300 900 / 900 Balance 1050 / 1050 -320 / -320 -850 / -850 Lab / Micro Data Result Diagrams: 07/26/21 05:55 07/26/21 05:55 Labs: Laboratory Results - last 24 hr 07/25/21 07:50: WBC 7.8, RBC 3.47 L, Hgb 9.5 L, Hct 29.1 L, MCV 83.9, MCH 27.4, MCHC 32.6, RDW Std Deviation 45.0 H, RDW Coeff of Mike 14.8 H, Plt Count 126 L, MPV 10.7, Immature Gran % (Auto) KINESIOTHERAPIST, Neut % (Auto) KINESIOTHERAPIST, Lymph % (Auto) KINESIOTHERAPIST, [place] % (Auto) KINESIOTHERAPIST, Eos % (Auto) KINESIOTHERAPIST, Baso % (Auto) KINESIOTHERAPIST, Absolute Neuts (auto) 6.4, Absolute Lymphs (auto) 0.70 L, Total Counted 100, Neutrophils % (Manual) 75 H, Band Neutrophils % 7 H, Lymphocytes % (Manual) 9 L, Monocytes % (Manual) 6, Eosinophils % (Manual) 1, Metamyelocytes % 2 H, Nucleated RBC % 0.4, Diff Path Review January foll, Platelet Estimate SLT DEC, Polychromasia 1+, Anisocytosis 2+ 07/25/21 07:50: Sodium 137, Potassium 3.3 L, Chloride 103, Carbon Dioxide 27.0, Anion Gap 7, BUN 24 H, Creatinine 0.74, Estim Creat Clear Calc 66.50, Est GFR (MDRD) Af Amer 133, Est GFR (MDRD) Non-Af 110, BUN/Creatinine Ratio 32.2 H, Glucose 73 L, Calcium 7.8 L 07/26/21 05:55: WBC 9.2, RBC 3.58 L, Hgb 9.7 L, Hct 30.1 L, MCV 84.1, MCH 27.1, MCHC 32.2, RDW Std Deviation 45.1 H, RDW Coeff of Mike 14.6, Plt Count 135 L, MPV 10.9, Neut % (Auto) Not Reportable 07/26/21 05:55: Sodium 139, Potassium 3.4 L, Chloride 105, Carbon Dioxide 31.0, Anion Gap 3 L, BUN 16, Creatinine 0.70, Estim Creat Clear Calc 66.50, Est GFR (MDRD) Af Amer 142, Est GFR (MDRD) Non-Af 117, BUN/Creatinine Ratio 22.7 H, Glucose 101, Calcium 7.9 L Micro: Microbiology 07/20/21 06:05 Blood Culture (Wb) - Anticubital Right Blood Culture - Final No growth in 5 days. 07/20/21 05:58 Blood Culture (Wb) - Anticubital Left Blood Culture - Final No growth in 5 days. 07/20/21 06:09 Interface Orders SARS-CoV-2 Antigen (Rapid) - Final 07/20/21 05:21 Stool Stool Occult Blood (PEDRO) - Final Occult Blood Positive Rhythm Strip Rhythm Strip: Sinus Tach Rate: 109 Ectopy: None Physical Exam Const oriented x3 and no apparent distress Resp normal respiratory effort Cardio regular rate and regular rhythm GI soft to palpation and non-tender Assessment & Plan Assessment/Plan (1) S/P small bowel resection: PLAN: Patient is doing well and tolerated full liquid diets. I will advance him to a regular diet if he tolerates this he may be discharged home. I will have his dang removed today. Patient will follow up with Dr. Isabel Fagan MD Pager: [facility] [address] [place] [address], [address] [place] [phone] Office:
[2021-07-26 08:40] LABS: Eosinophil 3 % (0-5); Lymphocyte 12 % (19-41); Metamyelocyte 5 % (0-1); Monocyte 10 % (0-10); Neutrophil-Band 2 % (0-5); Neutrophil-Segmented 68 % (47-70); Platelet Estimate SLT DEC (ADEQ); Total Cells Counted 100 (MANUAL DIFF)
[2021-07-26 08:41] LABS: Absolute Neutrophil Count 6.4 X10^3/uL (2.0-7.7); Red Cell Morphology NORM C+C NORMAL (NORM C&C)
[2021-07-26] MEDS: Metoprolol Tartrate 25 MG Tablet PO (09:03)
[2021-07-26] MEDS: Furosemide 40 MG/4 ML Vial IV (09:03)
[2021-07-26] MEDS: Aspirin 81 MG TAB.CHEW PO (09:03)
[2021-07-26] MEDS: Lisinopril 10 MG Tablet PO (09:03)
[2021-07-26] MEDS: Heparin Injection (Vial) 5,000 UNIT/ML VIAL 5000 UNIT SC (09:04)
--- NOTE | 2021-07-26 09:49 | PCM.PN.CARD ---
Subjective Subjective The patient is awake and alert. He is advancing his diet. He is hoping he is abdomen will tolerate his advance diet. He does not complain of ongoing chest discomfort, worsening shortness of breath, or palpitations at this time. Objective Data Vital Signs: Vital Signs Temp Pulse Resp BP Pulse Ox 98.9 F 94 16 151/54 H 94 07/26/21 08:47 07/26/21 09:03 07/26/21 08:47 07/26/21 09:03 07/26/21 08:47 Oxygen Flow Rate (L/min) 1 Oxygen Delivery Method Nasal Cannula Weight: 236 lb 15.951 oz Body Mass Index (BMI) 36.6 Intake & Output: Intake and Output for Last 24 Hours 07/24/21 07/25/21 07/26/21 23:59 23:59 23:59 Intake Total 2470 / 2470 980 / 980 160 / 160 Output Total 1420 / 1420 1300 / 1300 900 / 900 Balance 1050 / 1050 -320 / -320 -740 / -740 Lab / Micro Data Result Diagrams: 07/26/21 05:55 07/26/21 05:55 Labs: Laboratory Results - last 24 hr 07/25/21 07:50: WBC 7.8, RBC 3.47 L, Hgb 9.5 L, Hct 29.1 L, MCV 83.9, MCH 27.4, MCHC 32.6, RDW Std Deviation 45.0 H, RDW Coeff of Mike 14.8 H, Plt Count 126 L, MPV 10.7, Immature Gran % (Auto) TRUCK REPAIR SERVICE ESTIMATOR, Neut % (Auto) TRUCK REPAIR SERVICE ESTIMATOR, Lymph % (Auto) TRUCK REPAIR SERVICE ESTIMATOR, [place] % (Auto) TRUCK REPAIR SERVICE ESTIMATOR, Eos % (Auto) TRUCK REPAIR SERVICE ESTIMATOR, Baso % (Auto) TRUCK REPAIR SERVICE ESTIMATOR, Absolute Neuts (auto) 6.4, Absolute Lymphs (auto) 0.70 L, Total Counted 100, Neutrophils % (Manual) 75 H, Band Neutrophils % 7 H, Lymphocytes % (Manual) 9 L, Monocytes % (Manual) 6, Eosinophils % (Manual) 1, Metamyelocytes % 2 H, Nucleated RBC % 0.4, Diff Path Review May , Platelet Estimate SLT DEC, Polychromasia 1+, Anisocytosis 2+ 07/25/21 07:50: Sodium 137, Potassium 3.3 L, Chloride 103, Carbon Dioxide 27.0, Anion Gap 7, BUN 24 H, Creatinine 0.74, Estim Creat Clear Calc 66.50, Est GFR (MDRD) Af Amer 133, Est GFR (MDRD) Non-Af 110, BUN/Creatinine Ratio 32.2 H, Glucose 73 L, Calcium 7.8 L 07/26/21 05:55: WBC 9.2, RBC 3.58 L, Hgb 9.7 L, Hct 30.1 L, MCV 84.1, MCH 27.1, MCHC 32.2, RDW Std Deviation 45.1 H, RDW Coeff of Mike 14.6, Plt Count 135 L, MPV 10.9, Neut % (Auto) Not Reportable, Absolute Neuts (auto) 6.4, Absolute Lymphs (auto) 1.10, Total Counted 100, Neutrophils % (Manual) 68, Band Neutrophils % 2, Lymphocytes % (Manual) 12 L, Monocytes % (Manual) 10, Eosinophils % (Manual) 3, Metamyelocytes % 5 H, Diff Path Review January, Platelet Estimate SLT DEC, RBC Morphology NORM C+C 07/26/21 05:55: Sodium 139, Potassium 3.4 L, Chloride 105, Carbon Dioxide 31.0, Anion Gap 3 L, BUN 16, Creatinine 0.70, Estim Creat Clear Calc 66.50, Est GFR (MDRD) Af Amer 142, Est GFR (MDRD) Non-Af 117, BUN/Creatinine Ratio 22.7 H, Glucose 101, Calcium 7.9 L Micro: Microbiology 07/20/21 06:05 Blood Culture (Wb) - Anticubital Right Blood Culture - Final No growth in 5 days. 07/20/21 05:58 Blood Culture (Wb) - Anticubital Left Blood Culture - Final No growth in 5 days. Rhythm Strip Rhythm Strip: Sinus Tach Rate: 109 Ectopy: None Cardiology Labs/Tests 07/25/21 07:50: WBC 7.8, RBC 3.47 L, Hgb 9.5 L, Hct 29.1 L, MCV 83.9, MCH 27.4, MCHC 32.6, Plt Count 126 L, MPV 10.7, Immature Gran % (Auto) TRUCK REPAIR SERVICE ESTIMATOR, Neut % (Auto) TRUCK REPAIR SERVICE ESTIMATOR, Lymph % (Auto) TRUCK REPAIR SERVICE ESTIMATOR, [place] % (Auto) TRUCK REPAIR SERVICE ESTIMATOR, Eos % (Auto) TRUCK REPAIR SERVICE ESTIMATOR, Baso % (Auto) TRUCK REPAIR SERVICE ESTIMATOR, Absolute Neuts (auto) 6.4, Total Counted 100, Neutrophils % (Manual) 75 H, Band Neutrophils % 7 H, Lymphocytes % (Manual) 9 L, Monocytes % (Manual) 6, Eosinophils % (Manual) 1, Metamyelocytes % 2 H, Nucleated RBC % 0.4 07/25/21 07:50: Sodium 137, Potassium 3.3 L, Chloride 103, Carbon Dioxide 27.0, Anion Gap 7, BUN 24 H, Creatinine 0.74, Est GFR (MDRD) Af Amer 133, Est GFR (MDRD) Non-Af 110, BUN/Creatinine Ratio 32.2 H, Glucose 73 L, Calcium 7.8 L 07/26/21 05:55: WBC 9.2, RBC 3.58 L, Hgb 9.7 L, Hct 30.1 L, MCV 84.1, MCH 27.1, MCHC 32.2, Plt Count 135 L, MPV 10.9, Neut % (Auto) Not Reportable, Absolute Neuts (auto) 6.4, Total Counted 100, Neutrophils % (Manual) 68, Band Neutrophils % 2, Lymphocytes % (Manual) 12 L, Monocytes % (Manual) 10, Eosinophils % (Manual) 3, Metamyelocytes % 5 H 07/26/21 05:55: Sodium 139, Potassium 3.4 L, Chloride 105, Carbon Dioxide 31.0, Anion Gap 3 L, BUN 16, Creatinine 0.70, Est GFR (MDRD) Af Amer 142, Est GFR (MDRD) Non-Af 117, BUN/Creatinine Ratio 22.7 H, Glucose 101, Calcium 7.9 L Rhythm: Sinus rhythm ECHO: nterpretation Summary The estimated ejection fraction is 35-40 %. Moderate LVH Mild -moderate MR Mld-moderate TR Mild AI Moderate Pulmonary Hypertension RVSP 55 mmhg Physical Exam Const alert and oriented x3 Orientation / Consciousness: awake HEENT normocephalic, head/scalp atraumatic and hearing grossly normal bilaterally Eyes PERRL, EOMs intact bilaterally and conjunctivae normal Neck full ROM, supple and no JVD Resp clear to auscultation bilaterally Cardio regular rate, regular rhythm, S1 normal heart sound and S2 normal heart sound GI GI Narrative: Positive bowel sounds Extremity no pedal edema Psych mental status grossly normal Assessment & Plan Assessment/Plan (1) Atrial fibrillation with RVR: PLAN: The patient has had atrial fibrillation. He has been evaluated by cardiology. He has undergone noninvasive valuation. He has been treated medically. He is currently in sinus rhythm. He is deemed by Dr. Collazo of interventional cardiology not to be an ideal candidate for anticoagulant therapy at this time based upon his noncardiovascular/surgical issues. (2) Non-ST elevation (NSTEMI) myocardial infarction: PLAN: The patient had findings compatible with a non-ST segment elevation SC based upon his cardiac enzyme profile. It is unclear whether this is truly type I event versus being a type II event secondary to his noncardiovascular issues. At the present time he will need to continue medical management. Once he has recovered from his noncardiac/surgical issues he can be considered for further noninvasive or invasive evaluation. (3) Cardiomyopathy: PLAN: He does have findings compatible, based on echocardiogram, of diminished LV systolic function. It is again is unclear whether this is an acute issue versus a chronic issue. At the present time he will continue conservative medical management with future noninvasive and invasive valuation depending upon his noncardiac/surgical issues and recovery. (4) Hypertension: PLAN: He will need to continue medical management with adjustment as deemed appropriate. (5) S/P small bowel resection: PLAN: He is continuing to be followed by internal medicine and general surgery for his small bowel obstruction/surgical procedure. He is advancing his diet today and was eating yogurt this morning. Addt'l Comments This note was generated using a voice recognition system and there may be incorrect words, spelling or punctuation that were not noted when reviewing the office note prior to saving.
[2021-07-26] MEDS: levoFLOXacin 750 MG Tablet PO (10:32)
--- NOTE | 2021-07-26 12:35 | PCM.PN.BLA ---
Progress Note Carlisle removed at bedside. Patient tolerated well. Patient eating regular diet at lunch. Continued on 1 liter of oxygen. Assessment & Plan Assessment/Plan (1) S/P small bowel resection: PLAN: Hopefully discharge later today
--- NOTE | 2021-07-26 12:52 | PCM.DC ---
Discharge Instructions Diet Discharge Diet: Light diet - advance as tolerated Activity Discharge Activity: May Drive (In 2-3 days from discharge) and May Shower Dressing / Incision Call your doctor if your incision/area has: Continuous Slow Oozing, Sudden Increased Bleeding, Increased Pain/ Swelling, Increased Redness, Foul Smelling Discharge and Swelling at the incision site Call your doctor if you observe: Fever of 101 or Higher Suture Line Care: Avoid Pulling/Pushing and Avoid Pinching/Bending Cleanse incision/area with: Soap & Water Follow Up Care Please Follow Up With: Nancy Hall MD When: 2 weeks. Please call to schedule an appointment Test Results: Test results from this visit will be discussed in further detail at your follow-up appointment, if applicable. Discharge Plan Admission Admit Date/Time: 07/20/21 09:20 Primary Reason for Your Visit: Small bowel bezoar causing obstruction Attending Provider: Nancy Hall Primary Care Provider: Justin Ybarra Consulting Providers: Eliana Mccormick ; Stephon Arriola ; Obed Marx ; Brendan Bruce ; Xavier Maza ; Barbara Collazo ; Julien Scott ; Nii Chou ; Giles Cordova ; Otoniel Teague ; Ar Simmons RODENT CONTROL WORKER ; Danii Fan NP ; Roberta Bailey ; Luis Boyle ; Drew Rajput ; Tana Anthony RODENT CONTROL WORKER Discharge Orders/Prescriptions Prescriptions: New aspirin 81 mg Tablet,Chewable 81 mg PO BREAKFAST Qty: 0 RF: 0 levofloxacin 750 mg Tablet 750 mg PO DAILY Qty: 4 RF: 0 lisinopril 10 mg Tablet 10 mg PO DAILY Qty: 30 RF: 0 Continued multivitamin [Daily Multiple] 1 EACH tablet 1 ea PO DAILY RF: 0 folic acid 1 MG tablet 1 mg PO DAILY@0800 RF: 0 ezetimibe 10 MG tablet 10 mg PO DAILY RF: 0 Cholecalciferol (Vitamin D3) [Vitamin D3] 5,000 UNIT capsule 4,000 unit PO DAILY RF: 0 L-Theanine 100 mg PO/SL DAILY RF: 0 atenolol 100 mg tablet 100 mg PO DAILY RF: 0 magnesium 100 mg Tablet 100 mg PO TID RF: 0 sertraline 50 mg tablet 50 mg PO DAILY RF: 0 spironolactone 50 mg tablet 50 mg PO DAILY RF: 0 tadalafil 10 mg tablet 10 mg PO DAILY RF: 0 coQ10 (ubiquinol) 200 mg Capsule 200 mg PO DAILY RF: 0 famotidine [Pepcid] 20 mg tablet 20 mg PO DAILY PRN (Reason: acid reflux) Qty: 14 RF: 0 ondansetron HCl [Zofran] 4 mg tablet 4 mg PO Q8H PRN (Reason: nausea and vomiting) Qty: 14 RF: 0 Discontinued losartan 100 mg tablet 100 mg PO DAILY RF: 0 Referrals / Follow Up: Giles Cordova MD [STAFF PHYSICIAN] - (1 week. Please call to schedule an appointment.) Nancy Hall MD [STAFF PHYSICIAN] - (2 weeks. Please call to schedule an appointment.) Justin Ybarra MD [Primary Care Provider] - (1 week. Please call to schedule this appointment) Disposition Disposition (needs filled in before D/C Order can be placed): Home, Self Care
--- NOTE | 2021-07-26 12:55 | DS.PCM_ITS ---
Providers Date of Admission: 07/20/21 Primary Care Physician: Dr. Justin Ybarra MD Consultations 07/20/21 10:25 Consult: [facility] / Pulmonary Medicine Routine Consulting Provider: [facility] Reason for Consult: post-op vent EMERGENT Consult: Yes Notified: Yes Date Notified: 07/20/21 Time Notified: 10:25 Method of Notification: Verbal Method of Consult:: In-Person 07/22/21 07:26 Consult: Cardiology Routine Consulting Provider: [facility] Reason for Consult: New onset afib EMERGENT Consult: No Notified: Yes Date Notified: 07/22/21 Time Notified: 07:26 Method of Notification: Text Reason For Visit: SMALL BOWEL RESECTION Diagnosis Discharge Diagnosis (1) S/P small bowel resection: Status: Acute Code(s): Z90.49 - Acquired absence of other specified parts of digestive tract Medications at Discharge Home Medications Cholecalciferol (Vitamin D3) [Vitamin D3] 4,000 unit PO DAILY 12/10/15 L-Theanine 100 mg PO/SL DAILY 12/10/15 ezetimibe 10 mg PO DAILY 12/10/15 folic acid 1 mg PO DAILY@0800 12/10/15 multivitamin [Daily Multiple] 1 ea PO DAILY 12/10/15 atenolol 100 mg PO DAILY 07/19/21 coQ10 (ubiquinol) 200 mg PO DAILY 07/19/21 famotidine [Pepcid] 20 mg PO DAILY PRN #14 tab 07/19/21 magnesium 100 mg PO TID 07/19/21 ondansetron HCl [Zofran] 4 mg PO Q8H PRN #14 tab 07/19/21 sertraline 50 mg PO DAILY 07/19/21 spironolactone 50 mg PO DAILY 07/19/21 tadalafil 10 mg PO DAILY 07/19/21 aspirin 81 mg PO BREAKFAST #0 tab 07/26/21 levofloxacin 750 mg PO DAILY #4 tab 07/26/21 lisinopril 10 mg PO DAILY #30 tab 07/26/21 Hospital Course Summary of Care Provided Minutes Spent on Discharge: 25 Hospital Course: Patient presented with nausea, vomiting coffee ground material and abdominal pain. CT of the ab/pel was obtained demonstrating dilated fluid- filled stomach. small bowel likely high-grade obstruction, questionable pneumatosis of the small bowel. Patient was taken emergently to the OR by Dr. Hall on 07/20/21. An exploratory laparotomy was performed with resection of the proximal mid jejunum. A small bowel bezoar was noted to cause obstruction. NG tube was placed in the ED. Unfortunately prior to the procedure, patient was noted to have secretions in his airway during intubation prior to the procedure. Patient remained intubated following the procedure and was admitted to ICU and managed by [facility]. Patient was extubated on POD #1. POD #2, cardiology was consulted for atrial fibrillation. He was placed on IV Cardizem. An ECHO was performed demonstrating an ejection fraction of 35-40%. Patient's cardiac enzymes were significantly elevated consistent with a non-ST elevation myocardial infarction. Patient has denied chest pain throughout his visit. Patient was started on low dose aspirin and RENEE inhibitor. POD #4, patient started passing flatus and tolerated a clear liquid diet. He was noted to have a bowel movement on POD #5. Upon discharge, patient continued on oxygen via nasal canula and has qualified for home oxygen. Patient denies abdominal pain, nausea, vomiting. He is tolerating a regular diet. Positive flatus and bowel movements. Grayson were removed prior to discharge. Patient will be sent home on Levaquin x 4 days, low dose aspirin, and RENEE inhibitor. Patient will need to follow-up with PCP to have oxygen discontinued within 1 week. He will follow-up with cardiology in regards to A fib within 1 week. He will also need to follow- up with Dr. Hall in 2 weeks. Physical Exam Const alert, oriented x3 and no apparent distress HEENT normocephalic Eyes PERRL GI non-tender Inspection: incision intact, healing well and other (grayson were entirely removed. ) and central obesity Auscultation: hypoactive bowel sounds Palpation: soft Weight / BMI Weight Weight: 236 lb 15.951 oz Body Mass Index (BMI) 36.6 ABG / Lab / Microbiology Data Result Diagrams: 07/26/21 05:55 07/26/21 05:55 Laboratory: Laboratory Results - last 24 hr 07/26/21 05:55: WBC 9.2, RBC 3.58 L, Hgb 9.7 L, Hct 30.1 L, MCV 84.1, MCH 27.1, MCHC 32.2, RDW Std Deviation 45.1 H, RDW Coeff of Mike 14.6, Plt Count 135 L, MPV 10.9, Neut % (Auto) Not Reportable, Absolute Neuts (auto) 6.4, Absolute Lymphs (auto) 1.10, Total Counted 100, Neutrophils % (Manual) 68, Band Neutrophils % 2, Lymphocytes % (Manual) 12 L, Monocytes % (Manual) 10, Eosinophils % (Manual) 3, Metamyelocytes % 5 H, Diff Path Review May foll, Platelet Estimate SLT DEC, RBC Morphology NORM C+C 07/26/21 05:55: Sodium 139, Potassium 3.4 L, Chloride 105, Carbon Dioxide 31.0, Anion Gap 3 L, BUN 16, Creatinine 0.70, Estim Creat Clear Calc 66.50, Est GFR (MDRD) Af Amer 142, Est GFR (MDRD) Non-Af 117, BUN/Creatinine Ratio 22.7 H, Glucose 101, Calcium 7.9 L Microbiology: Microbiology 07/20/21 06:05 Blood Culture (Wb) - Anticubital Right Blood Culture - Final No growth in 5 days. 07/20/21 05:58 Blood Culture (Wb) - Anticubital Left Blood Culture - Final No growth in 5 days. 07/20/21 06:09 Interface Orders SARS-CoV-2 Antigen (Rapid) - Final 07/20/21 05:21 Stool Stool Occult Blood (PEDRO) - Final Occult Blood Positive D/C Instructions Discharge Diet: Light diet - advance as tolerated Call your doctor if your incision/area has: Continuous Slow Oozing, Sudden Increased Bleeding, Increased Pain/ Swelling, Increased Redness, Foul Smelling Discharge and Swelling at the incision site Call your doctor if you observe: Fever of 101 or Higher Suture Line Care: Avoid Pulling/Pushing and Avoid Pinching/Bending Cleanse incision/area with: Soap & Water Please Follow Up With: Nancy Hall MD When: 2 weeks. Please call to schedule an appointment Meaningful Use Info Meaningful Use Diagnoses (Choose all that apply): None applicable Discharge Plan Admission Admit Date/Time: 07/20/21 09:20 Primary Reason for Your Visit: Small bowel bezoar causing obstruction Attending Provider: Nancy Hall Primary Care Provider: Justin Ybarra Consulting Providers: Eliana Mccormick ; Stephon Arriola ; Obed Marx ; Brendan Bruce ; Xavier Maza ; Barbara Collazo ; Julien Scott ; Nii Chou ; Giles Cordova ; Otoniel Teague ; Ar Simmons COLLATERAL SPECIALIST ; Danii Fan COLLATERAL SPECIALIST ; Roberta Bailey ; Luis Boyle ; Drew Rajput ; Tana Anthony COLLATERAL SPECIALIST Discharge Orders/Prescriptions Prescriptions: New aspirin 81 mg Tablet,Chewable 81 mg PO BREAKFAST Qty: 0 RF: 0 levofloxacin 750 mg Tablet 750 mg PO DAILY Qty: 4 RF: 0 lisinopril 10 mg Tablet 10 mg PO DAILY Qty: 30 RF: 0 Continued multivitamin [Daily Multiple] 1 EACH tablet 1 ea PO DAILY RF: 0 folic acid 1 MG tablet 1 mg PO DAILY@0800 RF: 0 ezetimibe 10 MG tablet 10 mg PO DAILY RF: 0 Cholecalciferol (Vitamin D3) [Vitamin D3] 5,000 UNIT capsule 4,000 unit PO DAILY RF: 0 L-Theanine 100 mg PO/SL DAILY RF: 0 atenolol 100 mg tablet 100 mg PO DAILY RF: 0 magnesium 100 mg Tablet 100 mg PO TID RF: 0 sertraline 50 mg tablet 50 mg PO DAILY RF: 0 spironolactone 50 mg tablet 50 mg PO DAILY RF: 0 tadalafil 10 mg tablet 10 mg PO DAILY RF: 0 coQ10 (ubiquinol) 200 mg Capsule 200 mg PO DAILY RF: 0 famotidine [Pepcid] 20 mg tablet 20 mg PO DAILY PRN (Reason: acid reflux) Qty: 14 RF: 0 ondansetron HCl [Zofran] 4 mg tablet 4 mg PO Q8H PRN (Reason: nausea and vomiting) Qty: 14 RF: 0 Discontinued losartan 100 mg tablet 100 mg PO DAILY RF: 0 Referrals / Follow Up: Giles Cordova MD [STAFF PHYSICIAN] - (1 week. Please call to schedule an appointment.) Nancy Hall MD [STAFF PHYSICIAN] - (2 weeks. Please call to schedule an appointment.) Justin Ybarra MD [Primary Care Provider] - (1 week. Please call to malik rudd this appointment) Disposition Disposition (needs filled in before D/C Order can be placed): Home, Self Care Charges/Coding Visit Charges Inpatient E&M: 49868 Disch Hosp (no charge)
[2021-07-26 13:12] LABS: Pathologist Review Reviewed
--- NOTE | 2021-07-26 14:13 | PHA.DC.MC ---
Pharmacy Service has performed discharge medication reconciliation and counseling for this patient. 1. ASPIRIN 81MG PO BREAKFAST 2. LEVOFLOXACIN 750MG PO DAILY X 4 DAYS 3. LISINOPRIL 10MG PO DAILY The patient's discharge medication list was reviewed for discrepancies and discrepancies were resolved. Home Medications Cholecalciferol (Vitamin D3) [Vitamin D3] 4,000 unit PO DAILY 12/10/15 L-Theanine 100 mg PO/SL DAILY 12/10/15 ezetimibe 10 mg PO DAILY 12/10/15 folic acid 1 mg PO DAILY@0800 12/10/15 multivitamin [Daily Multiple] 1 ea PO DAILY 12/10/15 atenolol 100 mg PO DAILY 07/19/21 coQ10 (ubiquinol) 200 mg PO DAILY 07/19/21 famotidine [Pepcid] 20 mg PO DAILY PRN #14 tab 07/19/21 magnesium 100 mg PO TID 07/19/21 ondansetron HCl [Zofran] 4 mg PO Q8H PRN #14 tab 07/19/21 sertraline 50 mg PO DAILY 07/19/21 spironolactone 50 mg PO DAILY 07/19/21 tadalafil 10 mg PO DAILY 07/19/21 aspirin 81 mg PO BREAKFAST #0 tab 07/26/21 levofloxacin 750 mg PO DAILY #4 tab 07/26/21 lisinopril 10 mg PO DAILY #30 tab 07/26/21 The patient was counseled on the following discharge medications and changes in medications for homegoing were reviewed. The Reason for Use, instructions for use, and potential side effects were reviewed for all new medications. The patient's questions regarding all of their medications were answered. The patient was able to verbally demonstrate an understanding of their discharge medications.
[2021-07-26] MEDS: Potassium Chloride Oral Tablet 10 MEQ 30 MEQ PO (14:40)
--- NOTE | 2021-07-26 14:55 | CASEMGMT ---
Per Jemma WHITAKER, pt qualifies for 2L nc continuous home oxygen. [facility] but per Herl[facility], they cannot complete order for pt today and pt is ready for discharge. Call to [facility] and they do not have concentrators in stock to provide to pt today. Call to [facility] and they state they can set pt up today. Order obtained from [facility] and faxed to [facility] at this time. Jemma WHITAKER and pt updated, voice understanding. Pt states no further questions/concerns/needs. E-tank to be delivered to [facility] for pt discharge. Gustavo WHITAKER CM
--- NOTE | 2021-07-26 15:04 | NURSING ---
Addendum entered by Doris Cisneros 07/26/21 15:24: This RN was also with SN during all medication administration Original Note: This RN reviewed SN charting
[2021-07-26 17:07] LABS: Potassium 2.9 mmol/L (3.5-5.1)
[2021-07-27 12:20] LABS: Pathologist Review Reviewed
== END 2021-07-26 17:48 | disposition home or self-care (01) | DRG 853 ==
LOC: ED 06:45 → SDC 06:58 → ACINP 06:59 → SDC 10:08 → ICU 10:08 → PCU 07-24 10:08
PROVIDERS: Internal Medicine Critical Care Medicine; Physician Assistant; Physician Assistant Medical; Surgery; Admitting Provider Surgery; Emergency Provider Emergency Medicine; PCP Family Medicine; Visit Provider Surgery
PROC: 0DB80ZZ Excision of Small Intestine, Open Approach (ICD-10-PCS; CPT 44202; principal; 2021-07-20 07:10)
DX: A41.9 Sepsis, unspecified organism (principal); R65.21 Severe sepsis with septic shock; K63.1 Perforation of intestine (nontraumatic); J69.0 Pneumonitis due to inhalation of food and vomit; J96.01 Acute respiratory failure with hypoxia; K85.90 Acute pancreatitis without necrosis or infection, unspecified; K65.9 Peritonitis, unspecified; I21.4 Non-ST elevation (NSTEMI) myocardial infarction; K56.609 Unspecified intestinal obstruction, unspecified as to partial versus complete obstruction; E87.2 Acidosis; N17.9 Acute kidney failure, unspecified; J98.11 Atelectasis; I10 Essential (primary) hypertension; Z87.891 Personal history of nicotine dependence; Z90.49 Acquired absence of other specified parts of digestive tract; K63.89 Other specified diseases of intestine; K21.9 Gastro-esophageal reflux disease without esophagitis; E78.5 Hyperlipidemia, unspecified; E66.9 Obesity, unspecified; I48.91 Unspecified atrial fibrillation; Z68.37 Body mass index [BMI] 37.0-37.9, adult; Z90.79 Acquired absence of other genital organ(s); Z91.040 Latex allergy status
CPT/HCPCS: 31720; 36415; 36600; 71045; 74018; 74176; 80048; 80053; 81001; 82274; 82550; 82803; 83605; 83615; 83690; 83735; 83880; 84100; 84132; 84484; 85025; 85610; 85730; 86850; 86900; 86901; 86920; 87040; 87426; 88304; 88305; 88307; 93005; 93306; 94002; 94003; 94640; 94660; 97110; 97162; 97166; 97530; 97535; 97803; 99251; 99285; J7030; J7040; J7050; J7120; P9017; Q9957; A4216; C1760; C8929; G0463; J1940; J2405; J3010; J3490

== ENCOUNTER → 2021-07-27 15:48 | Outpatient (CLI) | payer BC, MEDICARE, OTHER, SELFPAY | PROVIDERS: PCP Family Medicine; Visit Provider Physician Assistant | DX: T81.49XA Infection following a procedure, other surgical site, initial encounter (principal) | CPT/HCPCS: 87070; 87075; 87205 ==

== ENCOUNTER → 2021-08-04 12:20 | Outpatient (CLI) | payer BC, MEDICARE, OTHER, SELFPAY ==
[2021-08-04 13:07] LABS: Absolute Lymphocyte Count 1.68 X10^3/uL (0.83-4.51); Absolute Neutrophil Count 5.9 X10^3/uL (2.0-7.7); Basophil# 0.09 X10^3/uL; Eosinophil# 0.15 X10^3/uL; Eosinophils% 1.7 % (0-5); Hematocrit 33.7 % (40-54); Hemoglobin 10.7 g/dL (13.0-16.5); Lymphocyte # 1.68 X10^3/ul (0.83-4.51); Lymphocyte % 19.4 % (19-41); Mean Corp Hgb Conc 31.8 g/dL (32-36); Mean Corpuscular Hgb 26.8 pg (27.0-32.0); Mean Corpuscular Volume 84.5 fL (80-94); Mean Platelet Vol. 10.2 fl (6.2-12.0); Monocyte# 0.79 X10^3/uL; Monocyte% 9.1 % (0-10); NRBC Flagged by Analyzer 0 % (0-5); Platelet Count 535 K/mm3 (150-450); RBC Distribution Width CV 14.6 % (11.6-14.6); RBC Distribution Width SD 44.8 fl (35.1-43.9); Red Blood Count 3.99 M/mm3 (4.6-6.2); White Blood Count 8.7 K/mm3 (4.4-11.0)
[2021-08-04 13:28] LABS: Anion Gap 7 (5-15); BUN 23 mg/dL (7-18); BUN/Creat Ratio 21.5 RATIO (10-20); Calcium,Total 9.2 mg/dL (8.5-10.1); Chloride 101 mmol/L (98-107); Creatinine, Serum 1.07 mg/dL (0.70-1.30); EST Glomerular Filtration Rate 73 mL/min (>60); Est Glom Filt Rate - Afr Amer 88 mL/min (>60); Glucose 112 mg/dL (74-106); Potassium 4.8 mmol/L (3.5-5.1); Sodium Level 133 mmol/L (136-145)
[2021-08-04 13:32] LABS: BNP,B-Type NATRIURETIC PEPTIDE 82.6 pg/mL (0-100)
== END ==
PROVIDERS: PCP Family Medicine; Referring Provider Nurse Practitioner Family; Visit Provider Nurse Practitioner Family
DX: I10 Essential (primary) hypertension (principal); I42.9 Cardiomyopathy, unspecified; R06.00 Dyspnea, unspecified
CPT/HCPCS: 36415; 80048; 83880; 85025

== ENCOUNTER → 2021-08-17 06:44 | Outpatient (CLI) | payer BC, MEDICARE, OTHER, SELFPAY ==
--- NOTE | 2021-08-17 12:53 | STRESSREP_ITS ---
Stress Test Report Date: 08-17-2021 Procedure: Pharmacologic stress nuclear imaging study Indications: Atrial fibrillation; non-ST segment elevation RI; cardiomyopathy Consent: Per the patient Procedure: The patient underwent pharmacologic (Regadenoson 0.4mg ) evaluation with a peak heart rate of 100 beats per minute (66%predicted maximal heart rate) and a peak blood pressure of 168/72 mmHg. The baseline ECG demonstrated sinus rhythm; T wave abnormality-consider myocardial ischemia ([id number]). The peak pharmacologic ECG demonstrated no obvious ECG changes. There were no cardiac dysrhythmias pretest, during pharmacologic infusion, or recovery. There was no complaint of chest discomfort during pharmacologic infusion or recovery. The examination was discontinued secondary to completion of protocol. Impression: 1. Pharmacologic (Regadenoson) evaluation 2. Peak pharmacologic ECG with no obvious ECG changes. 3. There were no cardiac dysrhythmias pretest, during pharmacologic infusion, or recovery. 4. Nuclear images pending Myocardial perfusion imaging study: Technique: The patient was injected with 14.9 millicuries of technetium 99m Cardiolite and subsequently rest SPECT Cardiolite nuclear imaging was obtained in the horizontal long, vertical long, and short axis views. The patient underwent pharmacologic (Regadenoson) evaluation with a peak heart rate of 100 beats per minute (66% percent predicted maximal heart rate) and a peak blood pressure of 168/72 mmHg. The patient was injected with 44.5 millicuries of technetium 99m Cardiolite and subsequently stress SPECT Cardiolite nuclear imaging was obtained in the horizontal long, vertical long, and short axis views. A gated Cardiolite study at peak stress was obtained. Interpretation: Rest and stress SPECT Cardiolite nuclear imaging status post realignment, normalization, and attenuation correction demonstrate relative uniform tracer uptake and myocardial perfusion appearing within normal limits. There is end systolic thickening and brightening. The gated Cardiolite study demonstrates myocardial thickening and inward wall motion. The reported LVEF is 67%. Impression: 1. Rest and stress SPECT Cardiolite nuclear imaging demonstrate relative uniform tracer uptake and myocardial perfusion appearing within normal limits. 2. The gated Cardiolite study reports an LVEF of 67%. This note was generated with [employer] software. It may contain incorrect words, spelling, and punctuation that were not noted in checking the note before signing.
== END ==
PROVIDERS: PCP Family Medicine; Referring Provider Nurse Practitioner Family; Visit Provider Nurse Practitioner Family
DX: I21.4 Non-ST elevation (NSTEMI) myocardial infarction (principal)
CPT/HCPCS: 78452; 93017; A9500; A4216; J2785

== ENCOUNTER 2021-10-05 12:58 | Outpatient (CLI) | payer BC, MEDICARE, OTHER, SELFPAY ==
--- NOTE | 2021-10-05 13:05 | ECHOCS_ITS ---
Reason For Study: CHF Procedure This was a 2D Doppler, Color Flow transthoracic echocardiogram. The study was technically difficult. Contrast injection was performed. Exam performed in department. Left Ventricle Normal LV size. Left ventricular systolic function is normal. The estimated ejection fraction is 65 %. No evidence for diastolic dysfunction. No regional wall motion abnormalities noted. Right Ventricle Normal RV size. Normal systolic function. Atria Normal left atrium. Normal right atrium. No doppler evidence for ASD. Mitral Valve There is no mitral annular calcification. Normal mitral valve. Trivial mitral valve insufficiency. Tricuspid Valve Normal tricuspid valve. Mild tricuspid valve insufficiency. Right ventricular systolic pressure estimated to be 34 mmHg. Aortic Valve Trisinus/trileaflet aortic valve. Normal aortic valve. Trivial eccentric aortic valve insufficiency. Pulmonic Valve The pulmonic valve is not well visualized. Mild (1+) pulmonic valve insufficiency. Great Vessels Normal sized aortic root. Pericardium/Pleural No pericardial effusion. Medication 22 gauge I.V. with prn adaptor inserted into left arm. Diluted definity 2.5ml given slow IV push to enhance endocardial definition. MMode/2D Measurements & Calculations LVIDd: 5.1 cm IVSd: 0.84 cm Ao root diam: 3.2 cm LVIDs: 3.4 cm LVPWd: 0.85 cm RVDd: 4.6 cm FS: 33.5 % LAV(MOD-bp): 70.2 ml LVAd ap4: 33.1 cm2 LVAd ap2: 29.1 cm2 LAV(MOD-bp) Indexed: 32.7 ml/m2 LVLd ap4: 8.0 cm LVLd ap2: 7.7 cm LAV(MOD-sp2): 66.4 ml EDV(MOD-sp4): 111.6 ml EDV(MOD-sp2): 92.9 ml LAV(MOD-sp4): 69.1 ml EDV(sp4-el): 116.1 ml EDV(sp2-el): 93.8 ml LVAs ap4: 16.4 cm2 LVAs ap2: 16.0 cm2 LVLs ap4: 6.3 cm LVLs ap2: 6.5 cm ESV(MOD-sp4): 34.8 ml ESV(MOD-sp2): 33.7 ml ESV(sp4-el): 36.3 ml ESV(sp2-el): 33.2 ml EF(MOD-sp4): 68.8 % EF(MOD-sp2): 63.8 % EF(sp4-el): 68.7 % SV(MOD-sp4): 76.8 ml SV(MOD-sp2): 59.3 ml SV(sp4-el): 79.8 ml LA A4 area: 22.2 cm2 LA dimension(2D): 3.7 cm RA A4 area: 19.9 cm2 Doppler Measurements & Calculations MV E max ranjan: 62.4 cm/sec Lat Peak E' Ranjan: 10.0 cm/sec Med Peak E' Ranjan: 5.3 cm/sec MV A max ranjan: 80.1 cm/sec E/E' lat: 6.2 E/E' med: 11.8 MV E/A: 0.78 Ao V2 max: 153.4 cm/sec LV V1 max: 163.2 cm/sec PA V2 max: 153.9 cm/sec Ao max P.4 mmHg LV V1 max P.7 mmHg PI end-d ranjan: 116.7 cm/sec TR max ranjan: 279.1 cm/sec TR max P.2 mmHg ECHO/Echo Complete W/ Contrast Interpretation Summary The study was technically difficult. Contrast injection was performed. Left ventricular systolic function is normal. The estimated ejection fraction is 65 %. Trivial mitral valve insufficiency. Mild tricuspid valve insufficiency. Trivial eccentric aortic valve insufficiency. Mild (1+) pulmonic valve insufficiency. Right ventricular systolic pressure estimated to be 34 mmHg. No evidence for diastolic dysfunction. Ordering Physician: Ar Simmons Referring Physician: TOMI KAUR Performed By: Jojo Howe, ALECIA, RVT
== END 2021-10-05 23:59 | disposition short-term general hospital (02) ==
LOC: CVS 13:03
PROVIDERS: PCP Family Medicine; Referring Provider Nurse Practitioner Family; Visit Provider Nurse Practitioner Family
DX: I48.0 Paroxysmal atrial fibrillation (principal)
CPT/HCPCS: 93306; Q9957; A4216; C8929

== ENCOUNTER → 2024-12-24 | Outpatient (CLI) | payer MEDICARE, OTHER, SELFPAY ==
--- NOTE | 2024-12-24 12:51 | CDU_ITS ---
Reason For Study Reason For Study: Evaluate for athersclerotic diesease Rt. Velocities/BP Lt. Velocities/BP Prox CCA 81.5/8.8 cm/sec. Prox CCA 94.9/11.3 cm/sec. Mid CCA 78.7/14.5 cm/sec. Mid CCA 102.5/14.6 cm/sec. Dist CCA 78.7/10.7 cm/sec. Dist CCA 93.8/14.6 cm/sec. Prox ICA 86.1/13.5 cm/sec. Prox ICA 101/18.8 cm/sec. Mid ICA 64.1/17.9 cm/sec. Mid ICA 110.1/22.5 cm/sec. Dist ICA 90.5/19 cm/sec. Dist ICA 88.2/18.8 cm/sec. Rt. ICA/CCA = 1.15. Lt. ICA/CCA = 1.07. Prox ECA 152.1/7.9 cm/sec. Prox ECA 239.2/11.1 cm/sec. Rt. Vert. 48.5/7.8 cm/sec. Lt. Vert. 50.9/11.6 cm/sec. Right Extracranial There is homogeneous, smooth atherosclerotic plaque noted in the right common carotid artery. There is heterogeneous, irregular atherosclerotic plaque noted in the right internal carotid artery. There is homogeneous, smooth atherosclerotic plaque noted in the right external carotid artery. Antegrade flow is noted in the right vertebral artery. Left Extracranial There is homogeneous, smooth atherosclerotic plaque noted in the left common carotid artery. There is homogeneous, smooth atherosclerotic plaque noted in the left internal carotid artery. There is heterogeneous, irregular atherosclerotic plaque noted in the left external carotid artery. Antegrade flow is noted in the left vertebral artery. Procedure Carotid Duplex [id number]. This is a Carotid Duplex examination using B-mode, color flow and specral Doppler. Exam performed in department. VL/Carotid Duplex Ultrasound Interpretation Summary Mild (<50%) stenosis right extracranial internal carotid. Mild (<50%) stenosis left extracranial internal carotid. Patent and antegrade vertebrals bilaterally. Ordering Physician: Ar Simmons Referring Physician: Robert Preciado Performed By: Viri Marin RVT
== END | disposition home or self-care (01) ==
LOC: CVS 12:51
PROVIDERS: PCP Family Medicine; Referring Provider Nurse Practitioner Family; Visit Provider Nurse Practitioner Family
DX: I65.22 Occlusion and stenosis of left carotid artery (principal); I48.0 Paroxysmal atrial fibrillation; I21.4 Non-ST elevation (NSTEMI) myocardial infarction; I42.0 Dilated cardiomyopathy; I10 Essential (primary) hypertension
CPT/HCPCS: 93880